=== PATIENT | female | born 1970 | race Caucasian/White ===

== ENCOUNTER 2023-06-09 10:51 | Outpatient (OUT) | payer BC, SELFPAY ==
--- NOTE | 2023-06-09 10:59 | US_ITS ---
The [address] [address] Patient Name: ROSSY BAKER MRN: [id number] date: 1970 Sex: F Assigned Patient Location: [place] Current Patient Location: Accession/Order Number: [id number] Exam Date: 06/09/2023 11:00 Report Date: 06/09/2023 11:48 At the request of: SWATHI WHITNEY Procedure: US abdomen complete EXAMINATION: US abdomen complete HISTORY: Unspecified Abdominal Pain R10.9 , bloating, left upper quadrant pain COMPARISON: No relevant comparison available. TECHNIQUE: High resolution sonographic examination of the abdomen was performed. FINDINGS: LIVER: Normal. Normal size and echotexture. No significant masses. BILIARY: Normal. Normal appearing gallbladder and biliary tree. PANCREAS: Normal. No visible mass, abnormal atrophy, or ductal dilatation. SPLEEN: Normal. Normal size and echotexture. KIDNEYS: Normal. No mass or obstruction. AORTA/VASCULAR: Normal. No aneurysm. Duplex Doppler demonstrates normal waveform and flow, 97/22 cm/s. Patent inferior vena cava. OTHER: Negative. US/US abdomen complete IMPRESSION: 1. No abnormal or suspicious findings to account for patient's symptoms. Electronically authenticated by: DAVID BARROS Date: 06/09/2023 11:48
== END 2023-06-09 10:52 | disposition home or self-care (01) ==
LOC: US 10:51
PROVIDERS: PCP Nurse Practitioner; Visit Provider Nurse Practitioner
DX: R10.9 Unspecified abdominal pain (principal)
CPT/HCPCS: 76700

== ENCOUNTER 2023-07-14 14:39 | Outpatient (OUT) | payer BC, SELFPAY ==
--- NOTE | 2023-07-14 14:42 | US_ITS ---
The [address] [address] Patient Name: ROSSY BAKER MRN: [id number] date: 1970 Sex: F Assigned Patient Location: [place] Current Patient Location: Accession/Order Number: [id number] Exam Date: 07/14/2023 14:44 Report Date: 07/14/2023 22:05 At the request of: SWATHI WHITNEY Procedure: US pelvis w/ transvaginal EXAMINATION: US pelvis w/ transvaginal HISTORY: Pelvic pain, bloating COMPARISON: No relevant comparison available. FINDINGS: The uterus is anteverted. The uterus measures 9.4 x 5.3 x 4.1 cm. Heterogeneous echotexture with no focal myometrial mass. Endometrium is poorly visualized. Multiple areas of anechoic echogenicity in the cervix likely representing nabothian cysts. The ovaries are not visualized No free fluid US/US pelvis w/ transvaginal IMPRESSION: Heterogeneous uterus, nonspecific Nonvisualization of the ovaries Electronically authenticated by: SHE SARKAR Date: 07/14/2023 22:05
== END 2023-07-14 14:40 | disposition home or self-care (01) ==
LOC: US 14:39
PROVIDERS: PCP Nurse Practitioner; Visit Provider Nurse Practitioner
DX: R10.2 Pelvic and perineal pain (principal); R14.0 Abdominal distension (gaseous)
CPT/HCPCS: 76830; 76856

== ENCOUNTER 2024-06-13 09:43 | Outpatient (OUT) | payer BC, SELFPAY ==
--- NOTE | 2024-06-13 09:53 | MM_ITS ---
Patient Name: ROSSY BAKER MR#: [id number] : 1970 Exam Date: 06/13/2024 Ordering Doctor: SWATHI WHITNEY . RADIOLOGY REPORT PROCEDURE: MM TOMOSYNTHESIS SCREENING BI COMPARISON: MG MAMM SCREEN 3D HARI CAD, 08/13/2021. MAMMO POST BIOPSY BILATERAL, 08/29/2021. INDICATIONS: Screening Calculator Name NCI Breast Cancer Risk Assessment Tool 5 Year Breast Cancer Risk 1.60% Lifetime Breast Cancer Risk 10.90% Personal Breast Cancer No Personal Ovarian Cancer No Treatments None Family Cancers Father with lung cancer at age 56. LOCATION: [facility] BREAST COMPOSITION: The breasts are heterogeneously dense,which may obscure small masses. FINDINGS: DIAGNOSTIC CATEGORY 2--BENIGN FINDING. NO CHANGE FROM COMPARISON. Scattered benign-appearing nodules are present. Scattered benign-appearing calcifications are present. Scattered benign-appearing lymph nodes are present. RIGHT BREAST: No significant suspicious finding. LEFT BREAST: No significant suspicious finding. RECOMMENDATIONS: ROUTINE MAMMOGRAM AND CLINICAL EVALUATION IN 12 MONTHS. PLEASE NOTE: A NORMAL MAMMOGRAM DOES NOT EXCLUDE THE POSSIBILITY OF BREAST CANCER. A CLINICALLY SUSPICIOUS PALPABLE LUMP SHOULD BE BIOPSIED. Dictated by: Afshin Verdin MD on 06/13/2024 at 11:03 Approved by: Afshin Verdin MD on 06/13/2024 at 11:04
== END 2024-06-13 09:44 | disposition home or self-care (01) ==
LOC: MAMMO 09:43
PROVIDERS: PCP Nurse Practitioner; Visit Provider Nurse Practitioner
DX: Z12.31 Encounter for screening mammogram for malignant neoplasm of breast (principal); Z80.1 Family history of malignant neoplasm of trachea, bronchus and lung
CPT/HCPCS: 77063; 77067

== ENCOUNTER 2024-09-28 08:59 | Outpatient (OUT) | payer BC, SELFPAY ==
[2024-09-28 10:05] LABS: Free T3 2.28 pg/mL (2.18-3.98); Thyroid Stimulating Hormone 0.011 uIU/mL (0.358-3.740)
[2024-09-28 10:38] LABS: Free T4 1.05 ng/dL (0.76-1.46)
== END 2024-09-28 09:00 | disposition home or self-care (01) ==
LOC: LAB 09:02
PROVIDERS: PCP Nurse Practitioner; Visit Provider Nurse Practitioner
DX: E03.9 Hypothyroidism, unspecified (principal); R63.4 Abnormal weight loss
CPT/HCPCS: 36415; 84439; 84443; 84481

== ENCOUNTER 2025-01-02 09:33 | Outpatient (OUT) | payer BC, SELFPAY ==
--- NOTE | 2025-01-02 09:35 | US_ITS ---
The [address] [address] Patient Name: ROSSY BAKER MRN: [id number] date: 1970 Sex: F Assigned Patient Location: [place] Current Patient Location: [place] Accession/Order Number: [id number] Exam Date: 01/02/2025 09:40 Report Date: 01/02/2025 12:56 At the request of: SWATHI WHITNEY Procedure: US right upper quadrant EXAMINATION: US right upper quadrant, US abdomen limited HISTORY: Generalized abdominal Pain , bloating, left upper quadrant pain COMPARISON: No relevant comparison available. TECHNIQUE: Transabdominal evaluation of the right upper quadrant. FINDINGS: LIVER: Normal size and echotexture. Color Doppler demonstrates patent hepatic veins. PORTAL VEIN: Duplex Doppler demonstrates normal hepatopetal flow pattern with flow velocity averaging 28 cm/s. GALLBLADDER: Contains numerous mobile 5 mm stones. No wall thickening or free fluid. Negative sonographic Erickson's sign. BILIARY: No abnormal dilation or stones. Common bile duct diameter is within normal limits. PANCREAS: Limited evaluation. No visible mass, abnormal atrophy, or duct dilation. KIDNEYS: No hydronephrosis. No visible mass or stones. SPLEEN: Limited evaluation, but no appreciable abnormality or enlargement. US/US right upper quadrant IMPRESSION: 1. Cholelithiasis. Otherwise unremarkable right upper quadrant. 2. Slightly limited evaluation, but grossly normal size and appearance of the spleen. Electronically authenticated by: DAVID BARROS Date: 01/02/2025 12:56
--- NOTE | 2025-01-02 09:38 | US_ITS ---
The [address] [address] Patient Name: ROSSY BAKER MRN: [id number] date: 1970 Sex: F Assigned Patient Location: [place] Current Patient Location: [place] Accession/Order Number: [id number] Exam Date: 01/02/2025 09:40 Report Date: 01/02/2025 12:56 At the request of: SWATHI WHITNEY Procedure: US abdomen limited EXAMINATION: US right upper quadrant, US abdomen limited HISTORY: Generalized abdominal Pain , bloating, left upper quadrant pain COMPARISON: No relevant comparison available. TECHNIQUE: Transabdominal evaluation of the right upper quadrant. FINDINGS: LIVER: Normal size and echotexture. Color Doppler demonstrates patent hepatic veins. PORTAL VEIN: Duplex Doppler demonstrates normal hepatopetal flow pattern with flow velocity averaging 28 cm/s. GALLBLADDER: Contains numerous mobile 5 mm stones. No wall thickening or free fluid. Negative sonographic Erickson's sign. BILIARY: No abnormal dilation or stones. Common bile duct diameter is within normal limits. PANCREAS: Limited evaluation. No visible mass, abnormal atrophy, or duct dilation. KIDNEYS: No hydronephrosis. No visible mass or stones. SPLEEN: Limited evaluation, but no appreciable abnormality or enlargement. US/US abdomen limited IMPRESSION: 1. Cholelithiasis. Otherwise unremarkable right upper quadrant. 2. Slightly limited evaluation, but grossly normal size and appearance of the spleen. Electronically authenticated by: DAVID BARROS Date: 01/02/2025 12:56
== END 2025-01-02 09:34 | disposition home or self-care (01) ==
LOC: US 09:33
PROVIDERS: PCP Nurse Practitioner; Visit Provider Nurse Practitioner
DX: R10.84 Generalized abdominal pain (principal); K80.20 Calculus of gallbladder without cholecystitis without obstruction
CPT/HCPCS: 76705

== ENCOUNTER 2025-03-22 06:42 | Outpatient (OUT) | payer BC, SELFPAY ==
--- NOTE | 2025-03-22 06:45 | NM_ITS ---
The [address] [address] Patient Name: ROSSY BAKER MRN: [id number] date: 1970 Sex: F Assigned Patient Location: [place] Current Patient Location: [place] Accession/Order Number: [id number] Exam Date: 03/22/2025 13:03 Report Date: 03/22/2025 13:04 At the request of: SWATHI WHITNEY Procedure: KS hepatobiliary w pharm HIDA SCAN WITH CCK CLINICAL HISTORY: ABDOMINAL PAIN, GALL STONES, NAUSEA COMPARISON: None. TECHNIQUE:Following the intravenous administration of 4.9 mCi of technetium 99m labeled Mebrofenin, anterior imaging of the abdomen was performed out to 60 minutes.The patient was subsequently given 8 ounces of ensure and gallbladder ejection fraction was calculated. FINDINGS: There is uniform distribution of radionuclide within the liver. Normal gallbladder activity is seen within the first 60 minutes. The gallbladder ejection fraction is 82%. Normal is greater than 40%. KS/KS hepatobiliary w pharm IMPRESSION: Normal HIDA scan. Impression dictated by: Andres Garcia Jr., D.O.03/22/2025 1:04 PM Dictation Location: [place] [address] Electronically authenticated by: [id number] Y Date: 03/22/2025 13:04
== END 2025-03-22 06:43 | disposition home or self-care (01) ==
LOC: NM 06:43
PROVIDERS: PCP Nurse Practitioner; Visit Provider Nurse Practitioner
DX: K80.20 Calculus of gallbladder without cholecystitis without obstruction (principal); R11.0 Nausea; R10.84 Generalized abdominal pain
CPT/HCPCS: 78227; A9537

== ENCOUNTER 2025-03-27 09:53 | Outpatient (OUT) | payer BC, SELFPAY ==
[2025-03-28 04:12] LABS: FSH 62.4 mIU/mL (.)
== END 2025-03-27 09:54 | disposition home or self-care (01) ==
LOC: LAB 09:54
PROVIDERS: PCP Nurse Practitioner; Visit Provider Obstetrics & Gynecology
DX: R10.2 Pelvic and perineal pain (principal); N93.9 Abnormal uterine and vaginal bleeding, unspecified; N95.0 Postmenopausal bleeding; Z98.890 Other specified postprocedural states; R14.0 Abdominal distension (gaseous)
CPT/HCPCS: 36415; 83001

== ENCOUNTER 2025-04-19 10:50 | Outpatient (OUT) | payer BC, SELFPAY ==
--- OUTSIDE RECORDS SUMMARY | 2025-04-19 07:59 | XMS_ITS ---
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 Name Role Phone KORTNEY SHERMAN Attending Unavailable NATAPRKORTNEY VELARDE Attending Unavailable John, INBOUND SALES REPRESENTATIVE Jazmyn L Attending Unavailable John, INBOUND SALES REPRESENTATIVE Jazmyn L Attending Unavailable John, INBOUND SALES REPRESENTATIVE Jazmyn L Attending Unavailable John, INBOUND SALES REPRESENTATIVE Jazmyn L Attending Unavailable John, INBOUND SALES REPRESENTATIVE Jazmyn L Attending Unavailable John, INBOUND SALES REPRESENTATIVE Jazmyn L Admitting Unavailable John, INBOUND SALES REPRESENTATIVE Jazmyn L Admitting Unavailable John, INBOUND SALES REPRESENTATIVE Jazmyn L Attending Unavailable John, INBOUND SALES REPRESENTATIVE Jazmyn L Attending Unavailable John, INBOUND SALES REPRESENTATIVE Jazmyn L Attending Unavailable PROBLEMS No Problem Records Found PROCEDURES No Procedure Records Found RESULTS FAMILY MEDICINE OFFICE/CLINI C NOTE Observed: 02/16/2025 11:05 AM Status: F Source: [facility] Family Medicine Office/Clini c Note HPI Staff Susan is a 54 year old female presenting to discuss ABD pain Abdominal Pain: JOVANI 12/06/24 U/s gallbladder and pancreas ordered. Location: Upper Bilateral Abdomen wrapping around to back Quality/Character: Continues to have intermittent nausea Severity: moderate Pt would like to discuss her gallbladder. Intermittent pain/nausea. Pt states she feels good if she doesn't eat. pt states when taking the pantoprazole would have blurry vision and just not feel good. History of Present Illness pt presents today with continued upper abdominal pain and epigastric pain Review of Systems PHQ Score Initial Depression Screen Score: 0 SCORE Physical Exam Vitals & Measurements HR: 78(Peripheral) RR: 18 BP: 138/82 SpO2: 98% HT: 65 in HT: 165.0 cm WT: 171.74 lb WT: 77.9 kg BMI: 28.61 General: alert, no acute distress ENMT: oral mucosa moist, no pharyngeal erythema or exudate Cardiovascular: regular rate and rhythm, normal peripheral perfusion Respiratory: Lungs CTA, respirations non labored Extremities: no deformity, no trauma Neurological: oriented x 4, LOC appropriate for age, CN II-XII intact, motor strength equal & normal bilaterally, speech normal Assessment/Plan 1. Abdominal pain (R10.9: Unspecified abdominal pain) pt continues having abdominal pain. mostly after she eats. the pain wakes her up at night. she was taking pantoprazole but it made her eyes blurry so she stopped that. she thinks all of this was caused by taking semaglutide. she has since stopped taking it, but feels the pain is getting worse. will order HIDA scan to check for gallbladder dysfunction. will then consider referral to surgery or GI depending on those results. pt states she was told she has a hiatal hernia and maybe it's getting worse. HIDA scan order sent to [facility] per pt request 2. Gall stones (K80.20: Calculus of gallbladder without cholecystitis without obstruction) pt had u/s of gallbladder and pancreas. it did show some gall stones. 3. BMI 28.0-28.9,adult (Z68.28: Body mass index [BMI] 28.0-28.9, adult) BMI education given 4. Non-smoker (Z78.9: Other specified health status) continue not smoking Follow-up No qualifying data available Problem List/Past Medical History Ongoing Abdominal pain Adult BMI 27.0-27.9 kg/sq m Allergic rhinitis Asthma BMI 26.0-26.9,adult BMI 29.0-29.9,adult Breast cancer screening by mammogram Cough Dysuria Encounter for weight management Gall stones GERD (gastroesophageal reflux disease) Hypothyroidism Nonsmoker Overweight (BMI 25.0-29.9) Shortness of breath Urinary tract infection Vaginal yeast infection Well woman exam Wheezing Historical No qualifying data Procedure/Surgical History Ablation, Colonoscopy, EGD (esophagogastroduodenoscopy) and closure of duodenal fistula, Surgery. Medications Albuterol (Eqv-Ventolin HFA) 90 mcg/inh inhalation aerosol, 180 mcg= 2 puff(s), Inhalation, q4hr, 3 refills budesonide 90 mcg/inh inhalation powder, 1 inh, Inhalation, BID, 11 refills cetirizine 10 mg Tab, 10 mg= 1 tab(s), Oral, Daily, 3 refills cyclobenzaprine 10 mg Tab, See Instructions levothyroxine 50 mcg (0.05 mg) Tab, See Instructions liothyronine 5 mcg Tab, 5 mcg= 1 tab(s), Oral, Daily, 3 refills ondansetron 4 mg Dis Tab, 4 mg= 1 tab(s), Oral, q6hr, PRN, 1 refills Pantoprazole [address] Tab, 40 mg= 1 tab(s), Oral, Daily, 1 refills Allergies No Known Medication Allergies Social History Alcohol Never., 10/18/2024 Substance Abuse Never., 10/18/2024 Tobacco Never (less than 100 in lifetime) Tobacco Use:. Never Smokeless Tobacco Use:. Household tobacco concerns: No. Yes, 12/06/2024 Family History Diabetes mellitus type 1: Mother. Immunizations Vaccine Date Status Comments influenza virus vaccine, inactivated 09/14/2024 Recorded zoster vaccine, inactivated 07/27/2024 Recorded zoster vaccine, inactivated 02/23/2024 Recorded diphtheria/pertussis, acel/tetanus adult 02/05/2024 Recorded influenza virus vaccine, inactivated 08/28/2023 Recorded influenza virus vaccine, inactivated 09/26/2022 Recorded SARS-CoV-2 (COVID-19) [id number] 09/26/2022 Recorded influenza virus vaccine, inactivated 09/15/2021 Recorded SARS-CoV-2 (COVID-19) mRNA BNT-162b2 vax 09/15/2021 Recorded 2023-04-16: [id number] SARS-CoV-2 (COVID-19) mRNA BNT-162b2 vax 03/04/2021 Recorded SARS-CoV-2 (COVID-19) mRNA BNT-162b2 vax 02/10/2021 Recorded influenza virus vaccine, inactivated 09/06/2020 Recorded influenza virus vaccine, inactivated 09/20/2019 Recorded influenza virus vaccine, inactivated 08/13/2018 Recorded influenza virus vaccine, inactivated 10/13/2017 Recorded influenza virus vaccine, inactivated 09/20/2017 Recorded diphtheria/pertussis, acel/tetanus adult 09/08/2016 Recorded influenza virus vaccine, inactivated 09/08/2016 Recorded influenza virus vaccine, inactivated 10/08/2015 Recorded Result Comment: Electronical ly Signed By: Jazmyn De La Torre\.br\Date and Time Signed: 02/16/25 12:43 EDT REMINDERS Observed: 12/08/2024 9:09 AM Status: C Source: [facility] Reminders From: Jazmyn De La Torre To: [facility] - Clinical; Sent: 12/08/2024 09:09:52 EST Show up: 12/08/2024 09:10:00 EST Subject: Ambulatory Reminder Due Date/Time: 12/09/2024 09:09:00 EST Labs look good.. kidney, liver and pancreas labs all normal Results: Date Result Name Ind Value Ref Range 12/06/2024 15:06 WBC 4.7 E9/L (4.0 - 11.0) 12/06/2024 15:06 RBC ((L)) 3.9 E12/L (4.3 - 5.9) 12/06/2024 15:06 HGB 14.0 gm/dL (12.0 - 16.0) 12/06/2024 15:06 Hct 39.8 % (34.0 - 46.0) 12/06/2024 15:06 MCV ((H)) 103.0 fL (80.0 - 100.0) 12/06/2024 15:06 MCH ((H)) 36.3 pg (27.0 - 34.0) 12/06/2024 15:06 MCHC 35.2 gm/dL (31.4 - 36.0) 12/06/2024 15:06 RDW ((H)) 14.5 % (10.9 - 14.2) 12/06/2024 15:06 Platelet 251.0 E9/L (150.0 - 500.0) 12/06/2024 15:06 MPV 8.5 fL (6.4 - 10.8) 12/06/2024 15:06 Neutro Auto 46.4 % (36.0 - 75.0) 12/06/2024 15:06 Lymph Auto 37.2 % (14.0 - 50.0) 12/06/2024 15:06 [place] Auto 6.6 % (4.0 - 14.0) 12/06/2024 15:06 Eos Auto ((H)) 9.0 % (0.0 - 8.0) 12/06/2024 15:06 Basophil Auto 0.8 % (0.0 - 2.0) 12/06/2024 15:06 Neutro Absolute 2.2 E9/L (2.0 - 7.5) 12/06/2024 15:06 Lymph Absolute 1.7 E9/L (1.0 - 4.0) 12/06/2024 15:06 [place] Absolute 0.3 E9/L (0.2 - 1.0) 12/06/2024 15:06 Eos Absolute 0.4 E9/L (0.0 - 0.5) 12/06/2024 15:06 Basophil Absolute 0.0 E9/L (0.0 - 0.2) 12/06/2024 15:06 Glucose Lvl 108 mg/dL (55 - 199) 12/06/2024 15:06 BUN 11 mg/dL (5 - 21) 12/06/2024 15:06 Creatinine 0.7 mg/dL (0.5 - 1.3) 12/06/2024 15:06 eGFR 101 mL/min/1.73 m2 (>=59 - ) 12/06/2024 15:06 BUN/Creat Ratio 16 (10 - 20) 12/06/2024 15:06 Sodium Lvl 139 mmol/L (135 - 145) 12/06/2024 15:06 Potassium Lvl 3.8 mmol/L (3.5 - 5.3) 12/06/2024 15:06 Chloride 106 mmol/L (101 - 111) 12/06/2024 15:06 CO2 24 mmol/L (21 - 31) 12/06/2024 15:06 AGAP 13 mEq/L (6 - 16) 12/06/2024 15:06 Calcium Lvl 9.1 mg/dL (8.9 - 11.1) 12/06/2024 15:06 Alk Phos 46 Int._Unit/L (21 - 98) 12/06/2024 15:06 ALT 12 Int._Unit/L (6 - 46) 12/06/2024 15:06 AST 20 Int._Unit/L (5 - 43) 12/06/2024 15:06 Total Protein 6.8 gm/dL (6.0 - 7.8) 12/06/2024 15:06 Albumin Lvl 4.2 gm/dL (3.3 - 5.0) 12/06/2024 15:06 Globulin 2.6 gm/dL (1.4 - 4.0) 12/06/2024 15:06 A/G Ratio 1.6 (1.1 - 2.2) 12/06/2024 15:06 Bili Total 0.8 mg/dL (0.0 - 1.1) 12/06/2024 15:06 Amylase Lvl 84 unit/L (25 - 157) 12/06/2024 15:06 Lipase Lvl 27 unit/L (13 - 58) 12/06/2024 15:06 TSH 0.75 mcIU/mL (0.34 - 5.60) From: Halima Ruiz M.A. ([facility] - Clinical) To: Jazmyn De La Torre; Sent: 12/11/2024 10:29:12 EST Show up: 12/11/2024 10:28:00 EST Subject: RE: Ambulatory Reminder patient notified AMBULATORY VISIT SUMMARY Observed: 12/06 3:29 PM Status: F Source: [facility] Ambulatory Visit Summary SUSAN BAKER :1970 Visit Date:12/06/2024 Ambulatory Visit Instructions Your Diagnosis UTI symptoms Abdominal pain Hypothyroidism BMI 26.0-26.9,adult Overweight (BMI 25.0-29.9) Nonsmoker Your Care Team Attending Physician - Jazmyn De La Torre Primary Care Physician - Jazmyn De La Torre This Is Your Medications List albuterol (Albuterol (Eqv-Ventolin HFA) 90 mcg/inh inhalation aerosol) budesonide (budesonide 90 mcg/inh inhalation powder) cetirizine (cetirizine 10 mg Tab) cyclobenzaprine (cyclobenzaprine 10 mg Tab) levothyroxine (levothyroxine 50 mcg (0.05 mg) Tab) liothyronine (liothyronine 5 mcg Tab) ondansetron (ondansetron 4 mg Dis Tab) Procedures Performed Ablation, Colonoscopy, EGD (esophagogastroduodenoscopy) and closure of duodenal fistula, Surgery. Discharge Vitals Heart Rate (Peripheral) 94 Respiratory Rate 18 Blood Pressure 132/84 Height 165 cm Height 65 in Weight 73.1 kg Weight 161.158 lb BMI 26.85 Medications What How Much When Instructions Unchanged albuterol (Albuterol (Eqv-Ventolin HFA) 90 mcg/ inh inhalation aerosol) 2 Puffs Inhalation Every 4 hours Unchanged budesonide (budesonide 90 mcg/ inh inhalation powder) 1 Inhalation Inhalation 2 times a day Unchanged cetirizine (cetirizine 10 mg Tab) 1 Tablets By Mouth Every day Unchanged cyclobenzaprine (cyclobenzaprine 10 mg Tab) See instructions TAKE 1 TABLET BY MOUTH 3 TIMES A DAY NEEDED FOR SPASM Unchanged levothyroxine (levothyroxine 50 mcg (0.05 mg) Tab) 1 Tablets By Mouth Every day Unchanged liothyronine (liothyronine 5 mcg Tab) 1 Tablets By Mouth Every day Duration: 90 Days Unchanged ondansetron (ondansetron 4 mg Dis Tab) 1 Tablets By Mouth Every 6 hours as needed for Nausea/Vomiting Allergies No Known Medication Allergies Problems Ongoing - Any problem that you are currently receiving treatment for. Abdominal pain Adult BMI 27.0-27.9 kg/sq m Allergic rhinitis Asthma BMI 26.0-26.9,adult BMI 29.0-29.9,adult Breast cancer screening by mammogram Cough Dysuria Encounter for weight management GERD (gastroesophageal reflux disease) Hypothyroidism Nonsmoker Overweight (BMI 25.0-29.9) Shortness of breath Urinary tract infection Vaginal yeast infection Well woman exam Wheezing Patient Survey You may receive a survey via text or e-mail asking about your office visit. Please share your experience with us by completing your survey. We appreciate your feedback and thank you for choosing us for your care. FAMILY MEDICINE OFFICE/CLINI C NOTE Observed: 12/06/2024 3:09 PM Status: F Source: [facility] Family Medicine Office/Clini c Note Chief Complaint Possible UTI HPI Staff Pt presents today for possible UTI. Increased frequency for a while. Lower abdominal pain since taking semaglutide. Now radiating around Rt flank. Denies pain and burning with urination. Increased fatigue. History of Present Illness pt c/o abdominal pain and urinary frequency Review of Systems PHQ Score Initial Depression Screen Score: 0 SCORE Physical Exam Vitals & Measurements HR: 94(Peripheral) RR: 18 BP: 132/84 SpO2: 97% HT: 65 in HT: 165 cm WT: 73.1 kg WT: 161.158 lb BMI: 26.85 General: alert, no acute distress ENMT: oral mucosa moist, no pharyngeal erythema or exudate Cardiovascular: regular rate and rhythm, normal peripheral perfusion Respiratory: Lungs CTA, respirations non labored Extremities: no deformity, no trauma Neurological: oriented x 4, LOC appropriate for age, CN II-XII intact, motor strength equal & normal bilaterally, speech normal Assessment/Plan 1. UTI symptoms (R39.9: Unspecified symptoms and signs involving the genitourinary system) urinary frequency . u/a negative in office today. Ordered: Amylase Level CBC w/ Auto Diff Comprehensive Metabolic Panel Lipase Level Thyroid Stimulating Hormone Urnls Dip Stick Auto w/o Microscopy POC 68804 2. Abdominal pain (R10.9: Unspecified abdominal pain) pt c/o continued abdominal pain. she thought it was from the ozempic she was taking, has been off of it for 3-4 weeks. and is still having abdominal pain. labs ordered. u/s of gallbladder and pancreas also ordered. RTC 3-4 weeks for follow up. if all testing is normal may consider pelvic u/s to look at uterus for possible fibroid Ordered: Amylase Level CBC w/ Auto Diff Comprehensive Metabolic Panel Lipase Level Thyroid Stimulating Hormone 3. Hypothyroidism (E03.9: Hypothyroidism, unspecified) TSH drawn in office today Ordered: Amylase Level CBC w/ Auto Diff Comprehensive Metabolic Panel Lipase Level Thyroid Stimulating Hormone 4. BMI 26.0-26.9,adult (Z68.26: Body mass index [BMI] 26.0-26.9, adult) BMI education given Ordered: Amylase Level CBC w/ Auto Diff Comprehensive Metabolic Panel Lipase Level Thyroid Stimulating Hormone 5. Overweight (BMI 25.0-29.9) (E66.3: Overweight) see above Ordered: Amylase Level CBC w/ Auto Diff Comprehensive Metabolic Panel Lipase Level Thyroid Stimulating Hormone 6. Nonsmoker (Z78.9: Other specified health status) continue not smoking Ordered: Amylase Level CBC w/ Auto Diff Comprehensive Metabolic Panel Lipase Level Thyroid Stimulating Hormone Orders: fluconazole, 150 mg = 1 tab(s), Oral, Once, take 1 tab on day 1 and one tab on day 4, # 2 tab(s), Refills(s) 1, Pharmacy: [facility]/pharmacy #[id number], 165, cm, 03/30/24 14:41:00 EDT, Height/Length Dosing, 75, kg, 03/30/24 14:41:00 EDT, Weight Dosing nystatin, 500,000 unit(s) = 5 mL, Oral, q6hr, retain in mouth as long as possible before swallowing, # 200 mL, Refills(s) 0, Pharmacy: [facility]/pharmacy #[id number], 165, cm, 08/08/24 10:51:00 EDT, Height/Length Dosing, 70.4, kg, 08/08/24 10:51:00 EDT, Weight Dosing Follow-up No qualifying data available Problem List/Past Medical History Ongoing Abdominal pain Adult BMI 27.0-27.9 kg/sq m Allergic rhinitis Asthma BMI 26.0-26.9,adult BMI 29.0-29.9,adult Breast cancer screening by mammogram Cough Dysuria Encounter for weight management GERD (gastroesophageal reflux disease) Hypothyroidism Nonsmoker Overweight (BMI 25.0-29.9) Shortness of breath Urinary tract infection Vaginal yeast infection Well woman exam Wheezing Historical No qualifying data Procedure/Surgical History Ablation, Colonoscopy, EGD (esophagogastroduodenoscopy) and closure of duodenal fistula, Surgery. Medications Albuterol (Eqv-Ventolin HFA) 90 mcg/inh inhalation aerosol, 180 mcg= 2 puff(s), Inhalation, q4hr, 3 refills budesonide 90 mcg/inh inhalation powder, 1 inh, Inhalation, BID, 11 refills cetirizine 10 mg Tab, 10 mg= 1 tab(s), Oral, Daily, 3 refills cyclobenzaprine 10 mg Tab, See Instructions levothyroxine 50 mcg (0.05 mg) Tab, 50 mcg= 1 tab(s), Oral, Daily liothyronine 5 mcg Tab, 5 mcg= 1 tab(s), Oral, Daily, 3 refills ondansetron 4 mg Dis Tab, 4 mg= 1 tab(s), Oral, q6hr, PRN, 1 refills Allergies No Known Medication Allergies Social History Alcohol Never., 10/18/2024 Substance Abuse Never., 10/18/2024 Tobacco Never (less than 100 in lifetime) Tobacco Use:. Never Smokeless Tobacco Use:. Household tobacco concerns: No. Yes, 12/06/2024 Family History Diabetes mellitus type 1: Mother. Immunizations Vaccine Date Status Comments influenza virus vaccine, inactivated 09/14/2024 Recorded zoster vaccine, inactivated 07/27/2024 Recorded zoster vaccine, inactivated 02/23/2024 Recorded diphtheria/pertussis, acel/tetanus adult 02/05/2024 Recorded influenza virus vaccine, inactivated 08/28/2023 Recorded influenza virus vaccine, inactivated 09/26/2022 Recorded SARS-CoV-2 (COVID-19) [id number] 09/26/2022 Recorded influenza virus vaccine, inactivated 09/15/2021 Recorded SARS-CoV-2 (COVID-19) mRNA BNT-162b2 vax 09/15/2021 Recorded 2023-04-16: TPV50 SARS-CoV-2 (COVID-19) mRNA BNT-162b2 vax 03/04/2021 Recorded SARS-CoV-2 (COVID-19) mRNA BNT-162b2 vax 02/10/2021 Recorded influenza virus vaccine, inactivated 09/06/2020 Recorded influenza virus vaccine, inactivated 09/20/2019 Recorded influenza virus vaccine, inactivated 08/13/2018 Recorded influenza virus vaccine, inactivated 10/13/2017 Recorded influenza virus vaccine, inactivated 09/20/2017 Recorded diphtheria/pertussis, acel/tetanus adult 09/08/2016 Recorded influenza virus vaccine, inactivated 09/08/2016 Recorded influenza virus vaccine, inactivated 10/08/2015 Recorded Lab Results Ambulatory Point of Care Results Bilirubin Urine Dipstick: Negative (12/06/24 14:40:00) Blood Urine Dipstick: Negative (12/06/24 14:40:00) Glucose Urine Dipstick: Negative (12/06/24 14:40:00) Ketones Urine Dipstick: Negative (12/06/24 14:40:00) Leukocytes Urine Dipstick: Negative (12/06/24 14:40:00) Nitrite Urine Dipstick: Negative (12/06/24 14:40:00) Protein Urine Dipstick: Negative (12/06/24 14:40:00) Specific [employer] Urine Dipstick: 1.010 (12/06/24 14:40:00) Urine Appearance Urine Dipstick: Clear (12/06/24 14:40:00) Urine Color Urine Dipstick: Light yellow (12/06/24 14:40:00) Urobilinogen Urine Dipstick: Normal 0.2-1 EU/dl (12/06/24 14:40:00) pH Urine Dipstick: 5.5 (12/06/24 14:40:00) Result Comment: Electronical ly Signed By: Jazmyn De La Torre.aida\Date and Time Signed: 12/06/24 15:09 EST CMP Collected: 12/06/2024 3:06 PM Status: F Source: [facility] TYPE CODE TESTS RESULT OUT OF RANGE REFERENCE UNITS LAB 2345-7([facility]) GLUCOSE:MCNC:P T:SER/PLAS:QN: 108 Normal 55-199 mg/dL LAB 3094-0([facility]) UREA NITROGEN:MCNC: PT:SER/PLAS:QN : 11 Normal 5-21 mg/dL LAB 2160-0([facility]) CREATININE:MCN C:PT:SER/PLAS: QN: 0.7 Normal 0.5-1.3 mg/dL LAB 55691-1([facility]) CALCIUM:MCNC:P T:SER/PLAS:QN: 9.1 Normal 8.9-11.1 mg/dL LAB 2951-2([facility]) SODIUM:SCNC:PT :SER/PLAS:QN: 139 Normal 135-145 mmol/L LAB 2823-3([facility]) POTASSIUM:SCNC :PT:SER/PLAS:Q N: 3.8 Normal 3.5-5.3 mmol/L LAB 2075-0([facility]) CHLORIDE:SCNC: PT:SER/PLAS:QN : 106 Normal 101-111 mmol/L LAB 2028-9([facility]) CARBON DIOXIDE:SCNC:P T:SER/PLAS:QN: 24 Normal 21-31 mmol/L LAB 6768-6([facility]) ALKALINE PHOSPHATASE:CC NC:PT:SER/PLAS :QN: 46 Normal 21-98 Int._Unit /L LAB 1975-2([facility]) BILIRUBIN:MCNC :PT:SER/PLAS:Q N: 0.8 Normal 0.0-1.1 mg/dL LAB 1751-7([facility]) ALBUMIN:MCNC:P T:SER/PLAS:QN: 4.2 Normal 3.3-5.0 gm/dL LAB 2885-2([facility]) PROTEIN:MCNC:P T:SER/PLAS:QN: 6.8 Normal 6.0-7.8 gm/dL LAB 1744-2([facility]) ALANINE AMINOTRANSFERA SE:CCNC:PT:SER /PLAS:QN:NO ADDITION OF P-5'-P 12 Normal 6-46 Int._Unit /L LAB 1920-8([facility]) ASPARTATE AMINOTRANSFERA SE:CCNC:PT:SER /PLAS:QN: 20 Normal 5-43 Int._Unit /L LAB 3097-3([facility]) UREA NITROGEN/CREAT ININE:MRTO:PT: SER/PLAS:QN: 16 Normal 10-20 No Units LAB 84773-9([facility]) ANION GAP:SCNC:PT:SE R/PLAS:QN: 13 Normal 6-16 mEq/L LAB 06133-3([facility]) GLOBULIN:MCNC: PT:SER:QN:CALC ULATED 2.6 Normal 1.4-4.0 gm/dL LAB 30462-4([facility]) ALBUMIN/GLOBUL IN:MCRTO:PT:SE R:QN: 1.6 Normal 1.1-2.2 Performed By: #### [id number] # ### [facility] [address] [place] [address] TSH Collected: 5 3:06 PM Status: F Source: [facility] TYPE CODE TESTS RESULT OUT OF RANGE REFERENCE UNITS LAB 3016-3([facility]) THYROTROPIN: ACNC:PT:SER/ PLAS:QN: 0.75 Normal 0.34-5.60 mcIU/mL Performed By: #### [id number] # ### [facility] [address] [place] [address] CBC W/ AUTO DIFF Collected: 12/06/2024 3:06 PM Statu s: F Source: [facility] TYPE CODE TESTS RESULT OUT OF RANGE REFERENCE UNITS LAB 08062-8([facility]) LEUKOCYTES^^YULY ECTED FOR NUCLEATED ERYTHROCYTES:NCN C:PT:BLD:QN:AUTO MATED COUNT 4.7 Normal 4.0-11.0 E9/L LAB 789-8([facility]) ERYTHROCYTES:NCN C:PT:BLD:QN:AUTO MATED COUNT 3.9 Low 4.3-5.9 E12/L LAB 718-7([facility]) HEMOGLOBIN:MCNC: PT:BLD:QN: 14.0 Normal 12.0-16.0 gm/dL LAB 4544-3([facility]) HEMATOCRIT:VFR:P T:BLD:QN:AUTOMAT ED COUNT 39.8 Normal 34.0-46.0 % LAB 788-0([facility]) ERYTHROCYTE DISTRIBUTION WIDTH:RATIO:PT:R BC:QN:AUTOMATED COUNT 14.5 High 10.9-14.2 % LAB 785-6([facility]) ERYTHROCYTE MEAN CORPUSCULAR HEMOGLOBIN:ENTMA SS:PT:RBC:QN:AUT OMATED COUNT 36.3 High 27.0-34.0 pg LAB 786-4([facility]) ERYTHROCYTE MEAN CORPUSCULAR HEMOGLOBIN CONCENTRATION:MC NC:PT:RBC:QN:AUT OMATED COUNT 35.2 Normal 31.4-36.0 gm/dL LAB 787-2([facility]) ERYTHROCYTE MEAN CORPUSCULAR VOLUME:ENTVOL:PT :RBC:QN:AUTOMATE D COUNT 103.0 High 80.0-100.0 fL LAB 82486-7([facility]) PLATELET MEAN VOLUME:ENTVOL:PT :BLD:QN:AUTOMATE D COUNT 8.5 Normal 6.4-10.8 fL LAB 85122248([facility]) Platelet 251.0 Normal 150.0-500.0 E9/ L LAB 10588-3([facility]) NEUTROPHILS/100 LEUKOCYTES:NFR:P T:BLD:QN: 46.4 Normal 36.0-75.0 % LAB 731-0([facility]) LYMPHOCYTES:NCNC :PT:BLD:QN:AUTOM ATED COUNT 37.2 Normal 14.0-50.0 % LAB 742-7([facility]) MONOCYTES:NCNC:P T:BLD:QN:AUTOMAT ED COUNT 0.3 Normal 0.2-1.0 E9/L LAB 713-8(INC) EOSINOPHILS/100 LEUKOCYTES:NFR:P T:BLD:QN:AUTOMAT ED COUNT 9.0 High 0.0-8.0 % LAB 704-7([facility]) BASOPHILS:NCNC:P T:BLD:QN:AUTOMAT ED COUNT 0.8 Normal 0.0-2.0 % LAB 751-8(INC) NEUTROPHILS:NCNC :PT:BLD:QN:AUTOM ATED COUNT 2.2 Normal 2.0-7.5 E9/L LAB 84791-8([facility]) LYMPHOCYTES:NCNC :PT:BLD:QN: 1.7 Normal 1.0-4.0 E9/L LAB 42656-8([facility]) EOSINOPHILS:NCNC :PT:BLD:QN: 0.4 Normal 0.0-0.5 E9/L LAB 55062-8([facility]) BASOPHILS/LEUKOC YTES:NFR.DF:PT:B LD:QN:AUTOMATED COUNT 0.0 Normal 0.0-0.2 E9/L Performed By: #### [id number] # ### [facility] [address] [place] [address] EGFR Collected: 3:06 PM Status: F Source: [facility] TYPE CODE TESTS RESULT OUT OF RANGE REFERENCE UNITS LAB 61269613([facility]) eGFR 101 Normal >=59 mL/min/1 .7 3 m2 Performed By: #### [id number] #### [facility] [address] [place] [address] AMYLASE Collected: 12/06/2024 3:06 PM Status: F Source: [facility] TYPE CODE TESTS RESULT OUT OF RANGE REFERENCE UNITS LAB 1798-8([facility]) AMYLASE:CCNC: PT:SER/PLAS:Q N: 84 Normal 25-157 unit/L Performed By: #### [id number] # ### [facility] [address] [place] [address] LIPASE LEVEL Collected: 12/06/2024 3:06 PM Status: F Source: [facility] TYPE CODE TESTS RESULT OUT OF RANGE REFERENCE UNITS LAB 3040-3(LOINC) TRIACYLGLYCEROL LIPASE:CCNC:PT:SER/ PLAS:QN: 27 Normal 13-58 unit/L Performed By: #### [id number] # ### [facility] [address] [place] [address] REMINDERS Observed: 10/23/2024 9:31 AM Status: F Source: [facility] Reminders From: Jazmyn De La Torre To: [facility] - Clinical; Sent: 10/23/2024 09:31:39 EST Show up: 10/23/2024 09:32:00 EST Subject: Ambulatory Reminder Due Date/Time: 10/24/2024 09:31:00 EST urine culture negative Results: Date Result Type Ind Result Name 10/18/2024 16:14 EST [facility] NEG Urine Culture REMINDERS Observed: 10/23/2024 9:31 AM Status: C Source: [facility] Reminders From: Jazmyn De La Torre To: [facility] - Clinical; Sent: 10/23/2024 09:31:39 EST Show up: 10/23/2024 09:32:00 EST Subject: Ambulatory Reminder Due Date/Time: 10/24/2024 09:31:00 EST urine culture negative Results: Date Result Type Ind Result Name 10/18/2024 16:14 EST [facility]BO NEG Urine Culture Susan advised of results REMINDERS Observed: 10/20/2024 2:26 PM Status: C Source: [facility] Reminders From: Jazmyn De La Torre To: [facility] - Clinical; Sent: 10/20/2024 14:26:39 EST Show up: 10/20/2024 14:27:00 EST Subject: Ambulatory Reminder Due Date/Time: 10/21/2024 14:26:00 EST urine culture was negative. symptoms are not caused by UTI Results: Date Result Type Ind Result Name 10/18/2024 MBO NEG Urine Culture Pt has been notified. FAMILY MEDICINE OFFICE/CLINI C NOTE Observed: 10/18/2024 5:03 PM Status: F Source: [facility] Family Medicine Office/Clini c Note HPI Staff Susan is a 54 year old female presenting with pain in back, dysuria Onset: started a week ago Symptoms: dysuria, abdominal pressure all the time OTC used: nothing Last UTI: at least a year ago Hx of kidney stones: no UA in office documented in chart Started on left side radiated to the right side lower pelvic pain for a out a month History of Present Illness pt presents today for uti symptoms Review of Systems PHQ Score Initial Depression Screen Score: 0 SCORE Physical Exam Vitals & Measurements T: 36.4 ???C(Oral) HR: 76(Peripheral) RR: 18 BP: 132/88 SpO2: 98% HT: 65 in HT: 165.0 cm WT: 69.6 kg WT: 153.442 lb BMI: 25.56 General: alert, no acute distress ENMT: oral mucosa moist, no pharyngeal erythema or exudate Cardiovascular: regular rate and rhythm, normal peripheral perfusion Respiratory: Lungs CTA, respirations non labored Extremities: no deformity, no trauma Neurological: oriented x 4, LOC appropriate for age, CN II-XII intact, motor strength equal & normal bilaterally, speech normal Assessment/Plan 1. Dysuria (R30.0: Dysuria) u/a negative in office. pt having abdominal pain, nausea and burning with urination. suspects this may be from ozempic. she will take a break from it for a few weeks. if pain does not improve, will order u/s of gallbladder. RTC as needed Ordered: Urine Culture Urnls Dip Stick Auto w/o Microscopy POC 18461 2. Non-smoker (Z78.9: Other specified health status) continue not smoking 3. BMI 25.0-25.9,adult (Z68.25: Body mass index [BMI] 25.0-25.9, adult) BMI education Follow-up No qualifying data available Problem List/Past Medical History Ongoing Abdominal pain Adult BMI 27.0-27.9 kg/sq m Allergic rhinitis Asthma BMI 29.0-29.9,adult Breast cancer screening by mammogram Cough Dysuria Encounter for weight management GERD (gastroesophageal reflux disease) Hypothyroidism Shortness of breath Urinary tract infection Vaginal yeast infection Well woman exam Wheezing Historical No qualifying data Procedure/Surgical History Ablation, Colonoscopy, EGD (esophagogastroduodenoscopy) and closure of duodenal fistula, Surgery. Medications Albuterol (Eqv-Ventolin HFA) 90 mcg/inh inhalation aerosol, 180 mcg= 2 puff(s), Inhalation, q4hr, 3 refills budesonide 90 mcg/inh inhalation powder, 1 inh, Inhalation, BID, 11 refills cetirizine 10 mg Tab, 10 mg= 1 tab(s), Oral, Daily, 3 refills cyclobenzaprine 10 mg Tab, 10 mg= 1 tab(s), Oral, TID, PRN Diflucan 150 mg Tab, 150 mg= 1 tab(s), Oral, Once, 1 refills levothyroxine 50 mcg (0.05 mg) Tab, 50 mcg= 1 tab(s), Oral, Daily liothyronine 5 mcg Tab, 5 mcg= 1 tab(s), Oral, Daily, 3 refills nystatin 100,000 units/mL Oral Susp, [id number] unit(s)= 5 mL, Oral, q6hr ondansetron 4 mg Dis Tab, 4 mg= 1 tab(s), Oral, q6hr, PRN, 1 refills Ozempic 2 mg/3 mL (0.25 mg or 0.5 mg dose) subcutaneous solution, 1.2 mg, SubCutaneous, qWeek Protonix 40 mg Tab-DR, 40 mg= 1 tab(s), Oral, Daily, 3 refills semaglutide, 1.8 mg, SubCutaneous, q7day, 2 refills semaglutide, 1.2 mg, SubCutaneous, qWeek Allergies No Known Medication Allergies Social History Alcohol Never., 10/18/2024 Substance Abuse Never., 10/18/2024 Tobacco Never (less than 100 in lifetime) Tobacco Use:., 10/18/2024 Never (less than 100 in lifetime) Tobacco Use:., 10/12/2023 Family History Diabetes mellitus type 1: Mother. Immunizations Vaccine Date Status Comments influenza virus vaccine, inactivated 09/14/2024 Recorded zoster vaccine, inactivated 07/27/2024 Recorded zoster vaccine, inactivated 02/23/2024 Recorded diphtheria/pertussis, acel/tetanus adult 02/05/2024 Recorded influenza virus vaccine, inactivated 08/28/2023 Recorded influenza virus vaccine, inactivated 09/26/2022 Recorded SARS-CoV-2 (COVID-19) [id number] 09/26/2022 Recorded influenza virus vaccine, inactivated 09/15/2021 Recorded SARS-CoV-2 (COVID-19) mRNA BNT-162b2 vax 09/15/2021 Recorded 2023-04-16: TPV50 SARS-CoV-2 (COVID-19) mRNA BNT-162b2 vax 03/04/2021 Recorded SARS-CoV-2 (COVID-19) mRNA BNT-162b2 vax 02/10/2021 Recorded influenza virus vaccine, inactivated 09/06/2020 Recorded influenza virus vaccine, inactivated 09/20/2019 Recorded influenza virus vaccine, inactivated 08/13/2018 Recorded influenza virus vaccine, inactivated 10/13/2017 Recorded influenza virus vaccine, inactivated 09/20/2017 Recorded diphtheria/pertussis, acel/tetanus adult 09/08/2016 Recorded influenza virus vaccine, inactivated 09/08/2016 Recorded influenza virus vaccine, inactivated 10/08/2015 Recorded Lab Results Ambulatory Point of Care Results Bilirubin Urine Dipstick: Negative (10/18/24 16:08:00) Blood Urine Dipstick: Negative (10/18/24 16:08:00) Glucose Urine Dipstick: Negative (10/18/24 16:08:00) Ketones Urine Dipstick: Negative (10/18/24 16:08:00) Leukocytes Urine Dipstick: Negative (10/18/24 16:08:00) Nitrite Urine Dipstick: Negative (10/18/24 16:08:00) Protein Urine Dipstick: Negative (10/18/24 16:08:00) Specific [employer] Urine Dipstick: 1.020 (10/18/24 16:08:00) Urine Appearance Urine Dipstick: Clear (10/18/24 16:08:00) Urine Color Urine Dipstick: Yellow (10/18/24 16:08:00) Urobilinogen Urine Dipstick: Normal 0.2-1 EU/dl (10/18/24 16:08:00) pH Urine Dipstick: 5.5 (10/18/24 16:08:00) Result Comment: Electronical ly Signed By: Jazmyn De La Torre\.br\Date and Time Signed: 10/18/24 17:03 EST C URINE Observed: 10/18/2024 4:14 PM Status: F Source: [facility] Microbiology PROCEDURE: Urine Culture [R1] SOURCE: U CleanCatch BODY SITE: COLLECTED DATE/TIME: 10/18/2024 16:14 EST RECEIVED DATE/TIME: 10/19/2024 17:59 EST START DATE/TIME: 10/19/2024 17:59 EST FREE TEXT SOURCE: Jazmyn De La Torre, Jazmyn Freedman FINAL REPORTS Final Report [] Verified Date/Time: 10/21/2024 10:50 EST 2,000 cfu/ml Mixed skin contaminants Performing Locations R1: This test was performed at: [facility] [address] [place] [address], [address] [place] [address], Performed By: #### [id number] # ### [facility] [address] [place] [id number] C URINE Observed: 10/18/2024 4:14 PM Status: F Source: [facility] Microbiology PROCEDURE: Urine Culture [R1] SOURCE: U CleanCatch BODY SITE: COLLECTED DATE/TIME: 10/18/2024 16:14 EST RECEIVED DATE/TIME: 10/19/2024 17:59 EST START DATE/TIME: 10/19/2024 17:59 EST FREE TEXT SOURCE: Jazmyn De La Torre, Jazmyn Freedman FINAL REPORTS Final Report [] Verified Date/Time: 10/21/2024 10:50 EST 2,000 cfu/ml Mixed skin contaminants Performing Locations R1: This test was performed at: [facility], [address] [place] [address], [id number], Performed By: #### [id number] # ### [facility] [address] [place] [id number] [facility] MEDICINE OFFICE/CLINI C NOTE Observed: 08/08/2024 11:08 AM Status: F Source: [facility] Medicine Office/Clini c Note HPI Staff Pt presents today due to chest congestion & cough. _Respiratory C/O: Duration: _ all summer Body aches: no Chest congestion: yes Chills: no Cough: yes Ear complaints: no itchy both Eye itching/watering: no Fever: no Headache: no Nasal congestion: no Nasal discharge: no Poor appetite: no Reduced activity: no Sinus pain/pressure: no Sneezing: no Sputum production: no Wheezing: yes Ill contacts: no Remedies tried: Her inhaler is not working for her Nights when he is laying down wheezing is worse History of Present Illness pt presents today with URI symptoms Review of Systems PHQ Score Initial Depression Screen Score: 0 SCORE Physical Exam Vitals & Measurements T: 36.2 ?C(Temporal Artery) HR: 78(Peripheral) RR: 18 BP: 116/78 SpO2: 96% HT: 65 in HT: 165.0 cm WT: 70.4 kg WT: 154.88 lb BMI: 25.86 General: alert, no acute distress ENMT: oral mucosa moist, no pharyngeal erythema or exudate Cardiovascular: regular rate and rhythm, normal peripheral perfusion Respiratory: Lungs expiratory wheezes, respirations non labored Extremities: no deformity, no trauma Neurological: oriented x 4, LOC appropriate for age, CN II-XII intact, motor strength equal & normal bilaterally, speech normal Assessment/Plan 1. Shortness of breath (R06.02: Shortness of breath) pt getting short of breath on exertion. kenalog 60mg given in office today RTC 3 months for weight management Ordered: benzonatate, 200 mg = 1 cap(s), Oral, TID, X 7 day(s), # 21 cap(s), Refills(s) 0, Pharmacy: [facility]/pharmacy #[id number], 165, cm, 08/08/24 10:51:00 EDT, Height/Length Dosing, 70.4, kg, 08/08/24 10:51:00 EDT, Weight Dosing 2. Wheezing (R06.2: Wheezing) see above Ordered: benzonatate, 200 mg = 1 cap(s), Oral, TID, X 7 day(s), # 21 cap(s), Refills(s) 0, Pharmacy: [facility]/pharmacy #[id number], 165, cm, 08/08/24 10:51:00 EDT, Height/Length Dosing, 70.4, kg, 08/08/24 10:51:00 EDT, Weight Dosing 3. Cough (R05.9: Cough, unspecified) pt is coughing. all day but worse at night. unable to sleep. z pack and tessalon pearls sent in also sent in inhalers Ordered: benzonatate, 200 mg = 1 cap(s), Oral, TID, X 7 day(s), # 21 cap(s), Refills(s) 0, Pharmacy: [facility]/pharmacy #[id number], 165, cm, 08/08/24 10:51:00 EDT, Height/Length Dosing, 70.4, kg, 08/08/24 10:51:00 EDT, Weight Dosing 4. BMI 25.0-25.9,adult (Z68.25: Body mass index [BMI] 25.0-25.9, adult) BMI education given Ordered: benzonatate, 200 mg = 1 cap(s), Oral, TID, X 7 day(s), # 21 cap(s), Refills(s) 0, Pharmacy: [facility]/pharmacy #[id number], 165, cm, 08/08/24 10:51:00 EDT, Height/Length Dosing, 70.4, kg, 08/08/24 10:51:00 EDT, Weight Dosing 5. Non-smoker (Z78.9: Other specified health status) continue not smoking Ordered: benzonatate, 200 mg = 1 cap(s), Oral, TID, X 7 day(s), # 21 cap(s), Refills(s) 0, Pharmacy: [facility]/pharmacy #[id number], 165, cm, 08/08/24 10:51:00 EDT, Height/Length Dosing, 70.4, kg, 08/08/24 10:51:00 EDT, Weight Dosing Orders: albuterol, 180 mcg, 2 puff(s), Inhalation, q4hr, 8.5 gm, Refill(s) 3, [facility]/pharmacy #[id number], 165, cm, 08/08/24 10:51:00 EDT, Height/Length Dosing, 70.4, kg, 08/08/24 10:51:00 EDT, Weight Dosing albuterol, 180 mcg, 2 puff(s), Inhalation, q4hr, 8.5 gm, Refill(s) 3, [facility]/pharmacy #[id number], 165, cm, 03/30/24 14:41:00 EDT, Height/Length Dosing, 75, kg, 03/30/24 14:41:00 EDT, Weight Dosing azithromycin, = 1 packet(s), Oral, As Directed, as directed on package labeling, X 5 day(s), # 6 tab(s), Refills(s) 0, Pharmacy: [facility]/pharmacy #[id number], 165, cm, 08/08/24 10:51:00 EDT, Height/Length Dosing, 70.4, kg, 08/08/24 10:51:00 EDT, Weight Dosing budesonide, 1 inh, Inhalation, BID, 1 EA, Refill(s) 11, [facility]/pharmacy #[id number], 165, cm, 08/08/24 10:51:00 EDT, Height/Length Dosing, 70.4, kg, 08/08/24 10:51:00 EDT, Weight Dosing cyclobenzaprine, 10 mg = 1 tab(s), Oral, TID, PRN for spasm, # 30 tab(s), Refills(s) 0, [id number] 165, cm, 08/08/24 10:51:00 EDT, Height/Length Dosing, 70.4, kg, 08/08/24 10:51:00 EDT, Weight Dosing Follow-up No qualifying data available Problem List/Past Medical History Ongoing Abdominal pain Adult BMI 27.0-27.9 kg/sq m Allergic rhinitis Asthma BMI 29.0-29.9,adult Breast cancer screening by mammogram Cough Encounter for weight management GERD (gastroesophageal reflux disease) Hypothyroidism Shortness of breath Vaginal yeast infection Well woman exam Wheezing Historical No qualifying data Procedure/Surgical History Ablation, Colonoscopy, EGD (esophagogastroduodenoscopy) and closure of duodenal fistula, Surgery. Medications Albuterol (Eqv-Ventolin HFA) 90 mcg/inh inhalation aerosol, 180 mcg= 2 puff(s), Inhalation, q4hr, 3 refills azithromycin 250 mg Tab, 1 packet(s), Oral, As Directed benzonatate 200 mg oral capsule, 200 mg= 1 cap(s), Oral, TID budesonide 90 mcg/inh inhalation powder, 1 inh, Inhalation, BID, 11 refills cetirizine 10 mg Tab, 10 mg= 1 tab(s), Oral, Daily, 3 refills cyclobenzaprine 10 mg Tab, 10 mg= 1 tab(s), Oral, TID, PRN Diflucan 150 mg Tab, 150 mg= 1 tab(s), Oral, Once, 1 refills levothyroxine 75 mcg (0.075 mg) Tab, 75 mcg= 1 tab(s), Oral, Daily, 1 refills liothyronine 5 mcg Tab, 5 mcg= 1 tab(s), Oral, Daily, 3 refills ondansetron 4 mg Dis Tab, 4 mg= 1 tab(s), Oral, q6hr, PRN, 1 refills Ozempic 2 mg/3 mL (0.25 mg or 0.5 mg dose) subcutaneous solution, 1.2 mg, SubCutaneous, qWeek Protonix 40 mg Tab-DR, 40 mg= 1 tab(s), Oral, Daily, 3 refills semaglutide, 1.8 mg, SubCutaneous, q7day, 2 refills semaglutide, 1.2 mg, SubCutaneous, qWeek Allergies No Known Medication Allergies Social History Tobacco Never (less than 100 in lifetime) Tobacco Use:. Never Smokeless Tobacco Use:. Cigarettes, Household tobacco concerns: No., 08/08/2024 Never (less than 100 in lifetime) Tobacco Use:., 10/12/2023 Family History Diabetes mellitus type 1: Mother. Immunizations Vaccine Date Status Comments influenza virus vaccine, inactivated 09/26/2022 Recorded SARS-CoV-2 (COVID-19) [id number].[id number] 09/26/2022 Recorded influenza virus vaccine, inactivated 09/15/2021 Recorded SARS-CoV-2 (COVID-19) mRNA BNT-162b2 vax 09/15/2021 Recorded 2023-04-16: TPV50 SARS-CoV-2 (COVID-19) mRNA BNT-162b2 vax 03/04/2021 Recorded SARS-CoV-2 (COVID-19) mRNA BNT-162b2 vax 02/10/2021 Recorded influenza virus vaccine, inactivated 09/06/2020 Recorded influenza virus vaccine, inactivated 09/20/2019 Recorded influenza virus vaccine, inactivated 08/13/2018 Recorded influenza virus vaccine, inactivated 10/13/2017 Recorded influenza virus vaccine, inactivated 09/20/2017 Recorded diphtheria/pertussis, acel/tetanus adult 09/08/2016 Recorded influenza virus vaccine, inactivated 09/08/2016 Recorded influenza virus vaccine, inactivated 10/08/2015 Recorded Result Comment: Electronical ly Signed By: Jazmyn De La Torre\.br\Date and Time Signed: 08/08/24 11:09 EDT AMBULATORY VISIT SUMMARY Observed: 08/08 11:05 AM Status: F Source: [facility] Ambulatory Visit Summary SUSAN BAKER :1970 Visit Date:08/08/2024 Ambulatory Visit Instructions Your Diagnosis Shortness of breath Wheezing Cough BMI 25.0-25.9,adult Non-smoker Your Care Team Attending Physician - Jazmyn De La Torre Primary Care Physician - Jazmyn De La Torre This Is Your Medications List Non-Formulary Medication (semaglutide) albuterol (Albuterol (Eqv-Ventolin HFA) 90 mcg/inh inhalation aerosol) azithromycin (azithromycin 250 mg Tab) benzonatate (benzonatate 200 mg oral capsule) budesonide (budesonide 90 mcg/inh inhalation powder) cetirizine (cetirizine 10 mg Tab) cyclobenzaprine (cyclobenzaprine 10 mg Tab) fluconazole (Diflucan 150 mg Tab) levothyroxine (levothyroxine 75 mcg (0.075 mg) Tab) liothyronine (liothyronine 5 mcg Tab) ondansetron (ondansetron 4 mg Dis Tab) pantoprazole (Protonix 40 mg Tab-DR) semaglutide semaglutide (Ozempic 2 mg/3 mL (0.25 mg or 0.5 mg dose) subcutaneous solution) Procedures Performed Ablation, Colonoscopy, EGD (esophagogastroduodenoscopy) and closure of duodenal fistula, Surgery. Discharge Vitals Temperature (Temporal Artery) 36.2 ?C Heart Rate (Peripheral) 78 Respiratory Rate 18 Blood Pressure 116/78 Height 165.0 cm Height 65 in Weight 70.4 kg Weight 154.88 lb BMI 25.86 What to do next Scheduled Follow-Up Appointments Wednesday 8:40 AM EST With: Jazmyn De La Torre Where: [place] [id number]- Medications What How Much When Why Instructions New albuterol (Albuterol (Eqv-Ventolin HFA) 90 mcg/ inh inhalation aerosol) 2 Puffs Inhalation Every 4 hours Refills: 3 Pickup at [facility]/pharmacy #[id number] New azithromycin (azithromycin 250 mg Tab) 1 Packets By Mouth As Directed Duration: 5 Days as directed on package labeling Pickup at [facility]/pharmacy #[id number] New benzonatate (benzonatate 200 mg oral capsule) 1 Capsules By Mouth 3 times a day Shortness of breath Wheezing Cough BMI 25.0-25.9,adult Non-smoker Duration: 7 Days Pickup at [facility]/pharmacy #[id number] New budesonide (budesonide 90 mcg/ inh inhalation powder) 1 Inhalation Inhalation 2 times a day Refills: 11 Pickup at [facility]/pharmacy #[id number] Unchanged cetirizine (cetirizine 10 mg Tab) 1 Tablets By Mouth Every day Unchanged cyclobenzaprine (cyclobenzaprine 10 mg Tab) 1 Tablets By Mouth 3 times a day as needed for for spasm Pickup at [facility]/pharmacy #[id number] Unchanged fluconazole (Diflucan 150 mg Tab) 1 Tablets By Mouth Once Encounter for weight management Vaginal yeast infection take 1 tab on day 1 and one tab on day 4 Unchanged levothyroxine (levothyroxine 75 mcg (0.075 mg) Tab) 1 Tablets By Mouth Every day Unchanged liothyronine (liothyronine 5 mcg Tab) 1 Tablets By Mouth Every day Duration: 90 Days Unchanged Non-Formulary Medication (semaglutide) 1.8 Milligram Subcutaneous Every 7 days Unchanged ondansetron (ondansetron 4 mg Dis Tab) 1 Tablets By Mouth Every 6 hours as needed for Nausea/Vomiting Unchanged pantoprazole (Protonix 40 mg Tab-DR) 1 Tablets By Mouth Every day BMI 28.0-28.9,adult Over weight Duration: 90 Days Unchanged semaglutide 1.2 Milligram Subcutaneous Every week through [facility] Unchanged semaglutide (Ozempic 2 mg/ 3 mL (0.25 mg or 0.5 mg dose) subcutaneous solution) 1.2 Milligram Subcutaneous Every week 1.2mg through [facility] Pharmacy Information [id number]: [address], [place] [id number] [phone] Allergies No Known Medication Allergies Problems Ongoing - Any problem that you are currently receiving treatment for. Abdominal pain Adult BMI 27.0-27.9 kg/sq m Allergic rhinitis Asthma BMI 29.0-29.9,adult Breast cancer screening by mammogram Cough Encounter for weight management GERD (gastroesophageal reflux disease) Hypothyroidism Shortness of breath Vaginal yeast infection Well woman exam Wheezing Patient Survey You may receive a survey via text or e-mail asking about your office visit. Please share your experience with us by completing your survey. We appreciate your feedback and thank you for choosing us for your care. ALLERGIES DATE TYPE / CODE NAME / CODE REACTION SEVERITY SOURCE /[id number](SNOME D CT) No Known Medication Allergies [facility] ENCOUNTERS ADMIT/DISCHARGE ACCOUNT NUMBER ADMITTING ENCOUNTER CLASS LOCATION SOURCE 04/19/2025/04/19/20 [id number] Ambulatory Building:NO [place] NB OB [facility] 04/19/2025/04/19/20 [id number] Ambulatory Building:NO [place] NB OB [facility] 03/14/2025/03/14/20 [id number] Ambulatory Building:NO [place] NB OB [facility] 02/16/2025/02/17/20 [id number] Ambulatory [facility] BillyBui lding:[facility] 12/06/2024/12/06/19 [id number] NOA Lopez Ambulatory MCBuildin g:[facility] 12/06/2024/12/06/19 [id number] Ambulatory [facility] BillyBui lding:[facility] Benitajulia m: [id number] [facility] 11/07/2024/11/07/20 24 [id number] Ambulatory [facility] BillyBui lding:[facility] 10/18/2024/10/18/20 24 [id number] NOA Lopez L Ambulatory FTMCBuildin g:FT LAB [facility] 10/18/2024/10/18/20 24 [id number] Ambulatory FT BelllazueBui lding:FT Billy [facility] 08/08/2024/08/08/20 24 [id number] Ambulatory FT BelllazueBui lding:FT Gregorio m: CD:[id number] [address] [place] [address] 06/30/2024/06/30/20 24 [id number] Ambulatory FT BillyBui lding:FT [place] [facility] PAYERS ENCOUNTER GUARANTOR PAYER SUBSCRIBER SOURCE 04/19/2025 SUSAN CARRASQUILLO: [place] [address]Fkt: (HP) (WP) Primary Insurance:[employer] licy Number: [id number] ctive Date:2022-11-29 ANSHU CARRASQUILLO: [id number] [place], [id number] [facility] EPIC 04/19/2025 SUSAN CARRASQUILLO: [place] [address]Lif: (HP) (WP) Primary Insurance:BCBSPo licy Number: [id number] ctive Date:2022-11-29 ANSHU CARRASQUILLO: [id number] [place] [address] [facility] EPIC 03/14/2025 SUSAN CARRASQUILLO: [place] [address]Mpc: (HP) (WP) Primary Insurance:BCBSPo licy Number: [id number] ctive Date:2022-11-29 ANSHU SANDOVALJailene: [id number] [place] [address] [facility] 02/16/2025 SUSAN BAKERB: BLACK RDTel: ~ ~(41 (HP) Primary Insurance:[employer] Policy Number: [id number] ctive Date:2024-11-29[address], [place] [address]XU: ANSHU [facility] 12/06/2024 SUSANAzul BAKERB: BLACK RDTel: ~ ~(41 (HP) Primary Insurance:[employer] Policy Number: [id number] ctive Date:2024-12-06[address], [place] [address]GY: ANSHU Caputo [facility] 12/06/2024 SUSANAzul BAKERB: BLCAK RDTel: ~ ~(41 (HP) Primary Insurance:[employer] Policy Number: [id number] ctive Date:2024-12-06[address] [place]EL [address]JC: ANSHU [facility] 11/07/2024 SUSANAzul BAKERB: BLACK RDTel: ~ ~(41 (HP) Primary Insurance:[employer] Policy Number: [id number] ctive Date:2023-09-14[address], [place] [address]QB: [facility] 10/18/2024 SUSAN OLIVIAB: BLACK RDTel: ~ ~(41 (HP) Primary Insurance:[employer] Policy Number: [id number] ctive Date:2024-10-18[address], [place] [address]HD: ANSHU Harshal [facility] 10/18/2024 SUSANAzul BAKERB: BLACK RDTel: ~ ~(41 (HP) Primary Insurance:[employer] Policy Number: [id number] ctive Date:2023-09-14 [address], [place] [address]DX: [facility] 08/08/2024 SUSANAzul BAKERB: BLACK RDTel: ~ ~(41 (HP) Primary Insurance:[employer] Policy Number: [id number] ctive Date:2023-09-14 [address], [place] [address]LD: [facility] 2024 SUSAN SANDOVALB: BLACK RDTel: ~ ~(41 (HP) Primary Insurance:[employer] Policy Number: [id number] ctive Date:2023-09-14 [address], [place] [address]BK: [facility]
[2025-04-20 04:07] LABS: CA 19-9 16 U/mL (0-35); CEA 3.2 ng/mL (0.0-4.7)
== END 2025-04-19 10:51 | disposition home or self-care (01) ==
LOC: LAB 10:52
PROVIDERS: PCP Nurse Practitioner; Visit Provider Obstetrics & Gynecology
DX: R10.2 Pelvic and perineal pain (principal); N94.89 Other specified conditions associated with female genital organs and menstrual cycle; R19.00 Intra-abdominal and pelvic swelling, mass and lump, unspecified site; N95.0 Postmenopausal bleeding
CPT/HCPCS: 36415; 82378; 86301; 86304

== ENCOUNTER 2025-08-23 08:57 | Outpatient (OUT) | payer BC, SELFPAY ==
--- OUTSIDE RECORDS SUMMARY | 2020-05-17 06:15 | XMS_ITS | Continuity of Care Document ---
Author Organization [facility] Address [address] [place] [phone] Phone Care Team Providers Care Moisture Tester Name Role Phone Albert Jennings Unavailable Unavailable Procedures Procedure Date Covid Testing [facility] Results Test Name Date and Time Measure Units Reference Range Abnormal Flag Status Comments Panel Description: SARS-CoV-2, NEFTALY Final SARS-CoV- 2, NEFTALY 020 16:07:00 Not Detected Not Detected Final Testing was per formed using the Aptima SARS-CoV-2 assay.This test was developed and its performance characteristics determinedby [employer]. This test has not been FDA cleared orapproved. This test has been authorized by FDA under an Emergency UseAuthorization (EUA). This test is only authorized for the duration oftime the declaration that circumstances exist justifying theauthorization of the emergency use of in vitro diagnostic tests fordetection of SARS-CoV-2 virus and/or diagnosis of COVID-19 infectionunder section 564(b)(1) of the Act, 21 U.S.C. 360bbb-3(b)(1), unlessthe authorization is terminated or revoked sooner.When diagnostic testing is negative, the possibility of a falsenegative result should be considered in the context of a patient'srecent exposures and the presence of clinical signs and symptomsconsistent with COVID-19. An individual without symptoms of COVID-19and who is not shedding SARS-CoV-2 virus would expect to have anegative (not detected) result in this assay.Performed by:[facility] [place] (=[place]) Panel Description: SARS-CoV-2 Antibody, IgM [facility] SARS-CoV- 2 Antibody, IgM 020 08:46:00 Negative Negative Final This sample do es not contain detectable SARS-CoV-2 IgM antibodies.This negative result does not rule out SARS-CoV-2 infection.Correlation with epidemiologic risk factors and other clinical andlaboratory findings is recommended. Serologic results should not beused as the sole basis to diagnose or exclude recent [id number].P erformed by:Jaylan Chaudhry (=G) Panel Description: SARS-CoV-2 Antibody, IgG [facility] SARS-CoV- 2 Antibody, IgG 020 07:25:00 Negative Negative Final This sample do es not contain detectable SARS-CoV-2 IgG antibodies.This negative result does not rule out SARS-CoV-2 infection.Correlation with epidemiologic risk factors and other clinical andlaboratory findings is recommended. Serologic results should not beused as the sole basis to diagnose or exclude recent [id number].T his assay was performed using the Pulido SARS-CoV-2 IgG assay.Performed by:Jaylan Chaudhry (=G) Advance Directives Directive Yes / No Effective Date File Name No Information Encounters Encounter Description Practice Location Reason(s) For Visit Diagnoses Date Provider Providers Copied on Encounter [facility], [address] [place] [address], [id number], [place] tel:[phone] COVID [facility] Encounter for screening for other viral disease Jer[facility]. [address] [place] [address], [id number], [place]. tel:[phone] Family History Family Member Type Diagnosis Age At Onset No Information Payers Payer name Insurance type Covered libertarian ID Ann liajarret(s) Marck [id number] Social History Type Description Quantity Date Captured Comments Alcohol Use Details Unknown Caffeine Use Details Unknown Tobacco Use Status No Information Smoking Status No Information Sex Female Sexual Orientation Straight or heterosexual Gender Identity Female Chief Complaint And Reason For Visit No Information Reason For Referral Reason For Referral No Information History Of Present Illness Encounter Date Complaint History Of Prese nt Illness No Information Functional Status Date Functional Assessmen t No Information Instructions Date Instruction Additional Infor mation No Information Assessments Type Assessment Date assessment Encounter for screening for othe r viral disease Patient Care Teams Name Effective Dates (start - stop) Status Members No Information
--- OUTSIDE RECORDS SUMMARY | 2025-08-23 08:59 | XMS_ITS | Clinical Summary ---
Author Organization [facility] Address [address] [place] [address] Care Team Providers Care Agricultural Education Instructor Name Role Phone Luis Currie MD Primary Care Provider [phone] Allergies No known active allergies Medications cetirizine (ZyrTEC) 10 MG tablet Take 10 mg by mouth 05/19/2024 Active levothyroxine (Synthroid, Levoxyl) 50 MCG tablet See Instruction s, TAKE 1 TABLET BY MOUTH EVERY DAY, # 90 tab(s), Refills(s) 0, Pharmacy: [id number], 165, cm, 12/06/24 14:44:00 EST, Height/Therese th Dosing, 73.1, kg, 12/06/24 14:44:00 EST, Weight Dosing 10/23/2024 Active Encounters Date Type Department Care Team Description 07/24/2025 11:30 AM EDT Clinical Support [facility] [address] [phone] Kendra Huang, DO [place] (Primary Dx) 07/24/2025 Travel 06/20/2025 10:00 AM EDT Office Visit DINESH [facility]aitan [facility] [address] [phone] Kendra Huang, Encounter to discuss test results; Adnexal mass; Pelvic pain in female 06/20/2025 9:00 AM EDT Ancillary Procedure [facility] [address] [phone] Adnexal mass; Pelvic mass in female; PMB (postmenopausal bleeding) 06/20/2025 Travel from Last 3 Months Family History Relation Name Status Comments Father Mother Alive Social History Tobacco Use Types Packs/Day Years Used Date Smoking Tobacco: Never Smokeless Tobacco: Never Tobacco Cessation:Counseling Given: Not Answered Alcohol Use Standard Drinks/Week Comments Not Currently 0 (1 standard drink = 0.6 oz pur e alcohol) Comments No Sex and Gender Information Value Date Recorded Sex Assigned at Not on file Legal Sex Female 7:08 PM EDT Gender Identity Not on file Sexual Orientation Not on file Last Filed Vital Signs Vital Sign Reading Time Taken Comments Blood Pressure 126/78 06/20/2025 9:20 AM EDT Pulse - - Temperature - - Respiratory Rate - - Oxygen Saturation - - Inhaled Oxygen Concentration - - Weight 76.7 kg (169 lb) 06/20/2025 9:20 AM EDT Height 162.6 cm (5' 4 ) 05/15/2019 12:00 PM EDT Body Mass Index 29.01 05/15/2019 12:00 PM EDT Plan of Treatment Upcoming Encounters Date Type Department Care Team (Late st Contact Info) Description 02/19/2026 9:30 AM EDT Office Visit DINESH [facility] [address] [phone] Kendra Huang, [address] [phone] Health Maintenance Due Date Last Done Comments CT Colonography 1968 Colonoscopy 1968 Colorectal Cancer Screening 1968 FIT-DNA 1968 FIT 1968 FOBT 1968 Sigmoidoscopy 1968 Pap Smear 1989 Cervical Cancer Screening 1998 HPV/Cotest 1998 Mammogram 2008 Influenza Vaccine (#1) 2025 , 08/28/2023, 09/26/2022, Additional history exists Procedures Procedure Name Priority Date/Time Associated Diagnosis Comments US PELVIS TRANSVAGINAL Routine 06/20/2025 9:15 AM EDT Adnexal mass Pelvic mass in female PMB (postmenopausal bleeding) from Last 3 Months Results * US pelvis transvaginal (06/20/2025 9:15 AM EDT) Anatomical Region Laterality Modality Pelvis Ultrasound Study GA Study Date Study IVONNE Working IVONNE (Source) 06/20/2025 Narrative 06/20/2025 11:14 AM EDT Images from the original result were not included. Obstetrics & Gynecology [address] [place] [address] [address] [place] [address] - - - - - - - - - - - - - - - - - - - - - - - - - - - - - - - - - - - - - - - - - - - - - - - - - - - - - - - - - - - - - - - - - - - - Date of exam: 06/20/25 Patient name: Susan Francis : 1970 Age: 54 y.o. - - - - - - - - - - - - - - - - - - - - - - - - - - - - - - - Indication: Left adnexal cyst Surgical History: Ablation Method: Transabdominal and transvaginal ultrasound examination View: Sufficient - - - - - - - - - - - - - - - - - - - - - - - - - - - - - - - Measurements: Uterus: 7.3 x 3.4 x 3.5 cm Volume: 45.7 cm Endometrial thickness: 1.8 mm Right ovary: 1.2 x 1.5 x 1.0 cm Volume: 0.8 cm Left ovary: not visualzied - - - - - - - - - - - - - - - - - - - - - - - - - - - - - - - Findings: Uterus: The uterus is normal in size and contour. Position: Anterverted Malformations: none Myometrium: The myometrium is rather inhomogenous in echotexture, without overt fibroid. Fibroid(s): none Endometrium: The patient has a history of an endometrial ablation. Polyp(s): none Cervix: The cervix contains several small thin walled sonolucent cysts. - - - - - - - - - - - - - - - - - - - - - - - - - - - - - - - Right ovary: Visualized Morphology: normal appearing Cyst(s): none Doppler: power doppler shows ovarian blood profusion Right adnexa: no overt adnexal mass - - - - - - - - - - - - - - - - - - - - - - - - - - - - - - - Left ovary: Not visualized Morphology: n/a Left adnexa: no overt adnexal mass - - - - - - - - - - - - - - - - - - - - - - - - - - - - - - - Cul de Sac: no free fluid - - - - - - - - - - - - - - - - - - - - - - - - - - - - - - - - - - - - - - - - - - - - - - - - - - - - - - - - - - - - - - - - - - - - Impression: The uterus is normal in size and contour. The myometrium is rather inhomogenous in echotexture. The patient has a history of an endometrial ablation. The right ovary appears normal in size and echotexture. The left ovary is not visible. The previously seen adnexal mass is not visualized on today's ultrasound. There is no free fluid visible within the pelvis. - - - - - - - - - - - - - - - - - - - - - - - - - - - - - - - - - - - - - - - - - - - - - - - - - - - - - - - - - - - - - - - - - - - - us Kendra Huang DO IMG US PROCEDURES Final Re sult from Last 3 [place] [phone] [employer] Care Teams Agricultural Education Instructor Relationship Specialty Start Date End Date Luis Currie MD [address] [place] [address] PCP - General Family Medicine 03/14/25
--- OUTSIDE RECORDS SUMMARY | 2025-08-23 09:00 | XMS_ITS | Encounter Summary ---
Author Organization [facility] Address [address] [place] [address] Care Team Providers Care Can Closing Machine Tender Name Role Phone Luis Currie MD Primary Care Provider [phone] Encounter Details Date Type Department Care Team (Late st Contact Info) Description 04/29/2025 Results Follow-Up [facility] [address] [facility] [address] [phone] Kendra Huang DO [address] [phone] [place] Social History Tobacco Use Types Packs/Day Years Used Date Smoking Tobacco: Never Smokeless Tobacco: Never Alcohol Use Standard Drinks/Week Comments Not Currently 0 (1 standard drink = 0.6 oz pur e alcohol) Comments No Sex and Gender Information Value Date Recorded Sex Assigned at Not on file Legal Sex Female 7:08 PM EDT Gender Identity Not on file Sexual Orientation Not on file documented as of this encounter Plan of Treatment Upcoming Encounters Date Type Department Care Team (Late st Contact Info) Description 02/19/2026 9:30 AM EDT Office Visit [facility] [address] [facility] [address] [phone] Kendra Huang DO [address] [phone] documented as of this encounter Visit Diagnoses Not on filedocumented in this encounter Care Teams Can Closing Machine Tender Relationship Specialty Start Date End Date Luis Currie MD [address] [place] [address] PCP - General Family Medicine 03/14/25 documented as of this encounter
--- NOTE | 2025-08-23 09:01 | MM_ITS ---
Patient Name: ROSSY BAKER MR#: [id number] : 1970 Exam Date: 08/23/2025 Ordering Doctor: DR. KORTNEY SHERMAN D.O. RADIOLOGY REPORT PROCEDURE: MM TOMOSYNTHESIS SCREENING BI COMPARISON: MM TOMOSYNTHESIS SCREENING BI, 06/13/2024. MAMMO POST BIOPSY BILATERAL, 08/29/2021. MG MAMM SCREEN 3D HARI CAD, 08/13/2021. INDICATIONS: Screening Calculator Name NCI Breast Cancer Risk Assessment Tool 5 Year Breast Cancer Risk 1.70% Lifetime Breast Cancer Risk 10.40% Personal Breast Cancer No Personal Ovarian Cancer No Treatments None Family Cancers Father with lung cancer at age 56. LOCATION: [facility] [place] BREAST COMPOSITION: The breasts are heterogeneously dense, which may obscure small masses. FINDINGS: DIAGNOSTIC CATEGORY 1--NEGATIVE. RIGHT BREAST: No significant suspicious finding. LEFT BREAST: No significant suspicious finding. RECOMMENDATIONS: ROUTINE MAMMOGRAM AND CLINICAL EVALUATION IN 12 MONTHS. Dictated by: Andres Garcia DO on 08/23/2025 at 15:01 Approved by: Andres Garcia DO on 08/23/2025 at 15:04
--- OUTSIDE RECORDS SUMMARY | 2025-08-23 09:01 | XMS_ITS | CCD ---
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 Name Role Phone Lorraine Esparza Unavailable FRANCY, DR NIRALI Arreguin Admitting Unavailable SEN, DR NIRALI Arreguin Attending Unavailable SEN, DR NIRALI Arreguin Primary Care Unavailable SEN, DR NIRALI Arreguin Consulting Unavailable WEST, DR SHE Burkett Consulting Unavailable OLEXA, LORRAINE Admitting Unavailable OLEXA, LORRAINE Attending Unavailable SEN, DR NIRALI Arreguin Primary Care Unavailable ZIMARLENA, DR CARROLL Reilly Consulting Unavailable OLEXA, LORRAINE Consulting Unavailable SEN, DR NIRALI Arreguin Admitting Unavailable ESN, DR NIRALI Arreguin Attending Unavailable SEN, DR NIRALI Arreguin Primary Care Unavailable SEN, DR NIRALI Arreguin Consulting Unavailable SEN, DR NIRALI Arreguin Admitting Unavailable SEN, DR NIRALI Arreguin Attending Unavailable SEN, DR NIRALI Arreguin Primary Care Unavailable SEN, DR NIRALI Arreguin Consulting Unavailable SEN, DR NIRALI Arreguin Admitting Unavailable SEN, DR NIRALI Arreguin Attending Unavailable EMMY, DR CARTER Primary Care Unavailable SEN, DR NIRALI Arreguin Consulting Unavailable ZIEBER, DR CARROLL Reilly Consulting Unavailable MELLO, DR SHE Burkett Admitting Unavailable MELLO, DR SHE Burkett Attending Unavailable SEN, DR NIRALI Arreguin Primary Care Unavailable WEST, DR SHE Burkett Consulting Unavailable MELLO, DR SHE Burkett Admitting Unavailable WEST, DR SHE Burkett Attending Unavailable SEN, DR NIRALI Arreguin Primary Care Unavailable WEST, DR SHE Burkett Consulting Unavailable FRANCY, DR NIRALI Arreguin Admitting Unavailable SEN, DR NIRALI Arreguin Attending Unavailable SEN, DR NIRALI Arreguin Primary Care Unavailable SEN, DR NIRALI Arreguin Consulting Unavailable WEST, DR SHE Burkett Consulting Unavailable FRANCY, NIRALI Arreguin Primary Care Physician Jazmyn Lopez Primary Care Physician NON STAFF Primary Care Provider UnavailDO Rocael James Attending Provider [phone] Rocael Faulkner Unavailable Rocael Faulkner Admitting Unavailable Rocael Faulkner Attending Unavailable NON STAFF Primary Care Unavailable Zulma Flores Admitting Unavailable Zulma Flores Attending Unavailable NON STAFF Primary Care Unavailable John, Jazmyn L Attending Unavailable John, Jazmyn L Admitting Unavailable John, Jazmyn L Attending Unavailable John, Jazmyn L Attending Unavailable John, Jazmyn L Attending Unavailable John, Jazmyn L Attending Unavailable John, Jazmyn L Attending Unavailable John, Jazmyn L Attending Unavailable John, Jazmyn L Attending Unavailable John, Jazmyn L Attending Unavailable John, Jazmyn L Attending Unavailable John, Jazmyn L Admitting Unavailable John, Jazmyn L Attending Unavailable Luis Currie MD Primary Care Provider [phone] John, CLINICAL ASST Jazmyn Freedman Attending Unavailable OMEGA, TOBACCO BALER TITI Liang Attending Unavailchico e NATAPRSYD, KENDRA Tripp Attending Unavailable NATAPRSYD, KENDRA Tripp Attending Unavailable NATAPRAQUILESRA, KENDRA Tripp Attending Unavailable NATAPRSYD, KENDRA Tripp Attending Unavailable Allergies Allergy Classification Reported Allergen(s) Allergy Type Date of Onset Reaction(s) Facility (3 sources) No Known Medication Allergies; Translations: [No Known Medication Allergies] Propensity to adverse reactions (disorder) [facility] Repository Medications Current Medications Medication Drug Class(es) Dates Sig (Normalized) Sig (Original) 0.25 MG, 0.5 MG Dose 3 ML semaglutide 0.68 MG/ML Pen Injector [Ozempic] (1 source) Start: 10-12-2023 inject 1.2 mg by subcutaneous injection every week Ozempic 2 mg/3 mL (0.25 mg or 0.5 mg dose) subcutaneous solution 1.2 mg, SubCutaneous, qWeek, 1.2mg through [facility], Refills(s) 0 Start Date: 10/12/23 Status: Ordered [id number] 200 actuat albuterol 0.09 mg/actuat metered dose inhaler (2 sources) beta2-Adrenergic Agonist take 2 puff(s) by inhalation every four hours as needed Ventolin HFA 90 MCG/ACT 2 puffs as needed Inhalation every 4 hrs Active Budesonide 0.09 MG/ACTUAT Dry Powder Inhaler (2 sources) Corticosteroid Start: 08-08-2024 budesonide 90 mcg/inh inhalation powder 1 inh, Inhalation, BID, 1 EA, Refill(s) 11, [facility]/pharmacy #[id number], 165, cm, 08/08/24 10:51:00 EDT, Height/Length Dosing, 70.4, kg, 08/08/24 10:51:00 EDT, Weight Dosing Start Date: 08/08/24 Status: Ordered cetirizine hydrochloride 10 mg oral tablet (8 sources) Histamine-1 Receptor Antagonist Start: 05-19-2024 cetirizine (ZyrTEC) 10 MG tablet Take 10 mg by mouth 05/19/2024 Active Start: 07-05-2023 take 1 tablet by francisco th once daily cetirizine 10 mg Tab 10 mg = 1 tab(s), Oral, Daily, # 90 tab(s), Refills(s) 3, [id number] 165.1, cm, 05/18/23 8:32:00 EDT, Height/Length Dosing, 80.9, kg, 05/18/23 8:32:00 EDT, Weight Dosing Start Date: 07/05/23 Status: Ordered [facility] ALL[facility] (CETRZN) 10 MG TAB (1 source) Start: 06-11-2023 [facility] ALL[facility] (CETRZN) 10 MG TAB [facility] (CETRZN) 10 MG TAB, Daily Start Date: 06/11/23 Status: Ordered cyclobenzaprine hydrochloride 10 mg oral tablet (2 sources) Muscle Relaxant Start: 12-04-2024 take 1 tablet by mouth three times daily as needed for muscle spasms cyclobenzaprine 10 mg Tab See Instructions, TAKE 1 TABLET BY MOUTH 3 TIMES A DAY NEEDED FOR SPASM, # 30 tab(s), Refills(s) 0, Pharmacy: [facility] STORE [id number], 165, cm, 10/18/24 16:04:00 EST, Height/Length Dosing, 69.6, kg, 10/18/24 16:04:00 EST, Weight Dosing Start Date: 12/04/24 Status: Ordered Start: 08-08-2024 take 1 tablet by francisco th three times daily as needed for muscle spasms cyclobenzaprine 10 mg Tab 10 mg = 1 tab(s), Oral, TID, PRN for spasm, # 30 tab(s), Refills(s) 0, Pharmacy: [facility]/pharmacy #[id number], 165, cm, 08/08/24 10:51:00 EDT, Height/Length Dosing, 70.4, kg, 08/08/24 10:51:00 EDT, Weight Dosing Start Date: 08/08/24 Status: Ordered levothyroxine sodium 0.05 mg oral tablet (12 sources) l-Thyroxine Start: 10-23-2024 take 1 tablet by mouth once daily levothyroxine 50 mcg (0.05 mg) Tab 50 mcg = 1 tab(s), Oral, Daily, # 90 tab(s), Refills(s) 0, [id number] 165, cm, 10/18/24 16:04:00 EST, Height/Length Dosing, 69.6, kg, 10/18/24 16:04:00 EST, Weight Dosing Start Date: 10/23/24 Status: Ordered Start: 10-23-2024 take 1 tablet by francisco once daily levothyroxine (Synthroid, Levoxyl) 50 MCG tablet See Instructions, TAKE 1 TABLET BY MOUTH EVERY DAY, # 90 tab(s), Refills(s) 0, Pharmacy: [facility] [id number], 165, cm, 12/06/24 14:44:00 EST, Height/Length Dosing, 73.1, kg, 12/06/24 14:44:00 EST, Weight Dosing 10/23/2024 Active Start: 09-29-2024 take 1 tablet by francisco th once daily levothyroxine 50 mcg (0.05 mg) Tab 50 mcg = 1 tab(s), Oral, Daily, # 60 tab(s), Refills(s) 0, [id number], 165, cm, 08/08/24 10:51:00 EDT, Height/Length Dosing, 70.4, kg, 08/08/24 10:51:00 EDT, Weight Dosing Start Date: 09/29/24 Status: Ordered Start: 04-29-2023 take 1 tablet by francisco th once daily levothyroxine 75 mcg (0.075 mg) Tab 75 mcg = 1 tab(s), Oral, Daily, # 30 tab(s), Refills(s) 5, [id number], 165.1, cm, 04/16/23 9:48:00 EDT, Height/Length Dosing, 78.6, kg, 04/16/23 9:48:00 EDT, Weight Dosing Start Date: 04/29/23 Status: Ordered take 1 tablet by [facility] once daily in the morning Levothyroxine Sodium 125 MCG 1 tablet on an empty stomach in the morning Orally Once a day Active take 1 tablet by [facility] once daily in the morning Levothyroxine Sodium 125 MCG 1 tablet on an empty stomach in the morning Orally Once a day Active liothyronine sodium 0.005 mg oral tablet (5 sources) l-Triiodothyronine Start: 05-03-2024 End: 04-28-2025 take 1 tablet by mouth once daily liothyronine 5 mcg Tab 5 mcg = 1 tab(s), Oral, Daily, X 90 day(s), # 90 tab(s), Refills(s) 3, [id number], 165, cm, 03/30/24 14:41:00 EDT, Height/Length Dosing, 75, kg, 03/30/24 14:41:00 EDT, Weight Dosing Start Date: 05/03/24 Stop Date: 04/28/25 Status: Ordered Start: 04-05-2023 take 1 tablet by [facility] once daily liothyronine 5 mcg Tab 5 mcg = 1 tab(s), Oral, Daily, # 90 tab(s), Refills(s) 0, [id number] Start Date: 04/05/23 Status: Ordered montelukast 5 mg chewable tablet (2 sources) Leukotriene Receptor Antagonist take 2 tablets by mouth every twenty-four hours Singulair 5 MG 2 tablets in the evening Orally Once a day Active nystatin [id number] unt/ml oral suspension (1 source) Polyene Antifungal Start: 08-22-20 24 take [id number] [IU] by mouth every six hours nystatin 100,000 units/mL Oral Susp 500,000 unit(s) = 5 mL, Oral, q6hr, retain in mouth as long as possible before swallowing, # 200 mL, Refills(s) 0, Pharmacy: [facility]/pharmacy #[id number], 165, cm, 08/08/24 10:51:00 EDT, Height/Length Dosing, 70.4, kg, 08/08/24 10:51:00 EDT, Weight Dosing Start Date: 08/22/24 Status: Ordered ondansetron 4 mg disintegrating oral tablet (2 sources) Serotonin-3 Receptor Antagonist Start: 02-02-20 take 1 tablet by mouth every six hours as needed for nausea ondansetron 4 mg Dis Tab 4 mg = 1 tab(s), Oral, q6hr, PRN Nausea/Vomiting, # 10 tab(s), Refills(s) 1, Pharmacy: [facility]/pharmacy #[id number], 165, cm, 02/02/24 8:30:00 EST, Height/Length Dosing, 75.1, kg, 02/02/24 8:30:00 EST, Weight Dosing Start Date: 02/02/24 Status: Ordered pantoprazole 40 mg delayed release oral tablet (4 sources) Proton Pump Inhibitor Start: 12-08-19 End: 12-02-19 take 1 tablet by mouth once daily Protonix 40 mg Tab-DR 40 mg = 1 tab(s), Oral, Daily, X 90 day(s), # 90 tab(s), Refills(s) 3, Pharmacy: [facility]/pharmacy #[id number], 165, cm, 12/08/23 8:32:00 EST, Height/Length Dosing, 78.5, kg, 12/08/23 8:32:00 EST, Weight Dosing Start Date: 12/08/23 Stop Date: 12/02/24 Status: Ordered Start: 07-05-2023 take 1 tablet by francisco once daily Protonix 40 mg Tab-DR 40 mg = 1 tab(s), Oral, Daily, # 90 tab(s), Refills(s) 3, Pharmacy: [facility]/pharmacy #[id number], 165.1, cm, 05/18/23 8:32:00 EDT, Height/Length Dosing, 80.9, kg, 05/18/23 8:32:00 EDT, Weight Dosing Start Date: 07/05/23 Status: Ordered Start: 04-16-2023 take 1 tablet by francisco once daily Protonix 40 mg Tab-DR 40 mg = 1 tab(s), Oral, Daily, # 30 tab(s), Refills(s) 2, Pharmacy: [facility]/pharmacy #[id number], 165.1, cm, 04/16/23 9:48:00 EDT, Height/Length Dosing, 78.6, kg, 04/16/23 9:48:00 EDT, Weight Dosing Start Date: 04/16/23 Status: Ordered semaglutide (1 source) Start: 02-02-2024 inject 1.2 mg by subcutaneous injection every week semaglutide 1.2 mg, SubCutaneous, qWeek, through [employer], # 4 EA, Refills(s) 2 Start Date: 02/02/24 Status: Ordered semaglutide (1 source) Start: 06-21-2024 semaglutide se maglutide, 1.8 mg, SubCutaneous, q7day, 2 mL, 2, v2 Ratings, Compound, 165, cm, 03/30/24 14:41:00 EDT, Height/Length Dosing, 75, kg, 03/30/24 14:41:00 EDT, Weight Dosing Start Date: 06/21/24 Status: Ordered Completed/Discontinued Medications Medication Drug Class(es) Dates Sig (Normalized) Sig (Original) Albuterol (Eqv-Ventolin HFA) 90 mcg/inh inhalation aerosol (5 sources) Start: 08-08-2024 take 8.5 g by inhalation every four hours Albuterol (Eqv-Ventolin HFA) 90 mcg/inh inhalation aerosol 180 mcg, 2 puff(s), Inhalation, q4hr, 8.5 gm, Refill(s) 3, [facility]/pharmacy #[id number], 165, cm, 08/08/24 10:51:00 EDT, Height/Length Dosing, 70.4, kg, 08/08/24 10:51:00 EDT, Weight Dosing Start Date: 08/08/24 Status: Ordered Start: 04-16-2023 take 2 puff(s) by in halation every four hours Albuterol (Eqv-Ventolin HFA) 90 mcg/inh inhalation aerosol 2 puff(s), Inhalation, q4hr, Refill(s) 0 Start Date: 04/16/23 Status: Ordered fluconazole 150 mg oral tablet (1 source) Azole Antifungal Start: 03-30-2024 take 4 tablets by mouth once Diflucan 150 mg Tab 150 mg = 1 tab(s), Oral, Once, take 1 tab on day 1 and one tab on day 4, # 2 tab(s), Refills(s) 1, Pharmacy: [facility]/pharmacy #[id number], 165, cm, 03/30/24 14:41:00 EDT, Height/Length Dosing, 75, kg, 03/30/24 14:41:00 EDT, Weight Dosing Start Date: 03/30/24 Status: Ordered triamcinolone acetonide 40 mg/ml injectable suspension (3 sources) Corticosteroid Start: 02-22-2023 Kenalog-40 05 Dec, 2023 40 mg Start: 12-23-2021 Kenalog -40 mg Nov, 40 mg Problems Active Problems Problem Classification Problem Date Documented Da te Episodic/Chronic Abdominal pain (9 sources) Abdominal pain; Translations: [Pain in female pelvis] 05-18-2023 Episodic Administrative/social admission (2 sources) Patient encounter status; Translations: [Person consulting for explanation of examination or test findings] 06-19-2025 Episodic Asthma (5 sources) Asthma 04-16-2023 Chronic Esophageal disorders (5 sources) Gastroesophageal reflux disease 04-16-2023 Chronic Genitourinary symptoms and ill-defined conditions (2 sources) Dysuria 10-18-2024 Episodic Menopausal disorders (4 sources) Postmenopausal bleeding; Translations: [Postmenopausal bleeding] 03-14-2025 Chronic Mycoses (3 sources) Candidiasis, unspecified; Translations: [Candidiasis of vagina] Onset: 1 03-30-2024 Episodic Nonmalignant breast conditions (1 source) Diffuse cystic mastopathy of left breast; Translations: [DIFFUSE CYSTIC MASTOPATHY LT BREAST] Onset: 1 Chronic Other connective tissue disease (4 sources) Unspecified rotator cuff tear or rupture of right shoulder, not specified as traumatic; Translations: [Tear of right rotator cuff, unspecified tear extent, unspecified whether traumatic] Onset: 2 Resolved: 2 Episodic Other connective tissue disease (1 source) Disorder of rotator cuff; Translations: [Unspecified rotator cuff tear or rupture of right shoulder, not specified as traumatic] Episodic Other connective tissue disease (1 source) Bicipital tendinitis, right shoulder Episodic Other female genital disorders (2 sources) Abnormal uterine bleeding; Translations: [Abnormal uterine and vaginal bleeding, unspecified] 03-14-2025 Chronic Other female genital disorders (2 sources) Mass of uterine adnexa; Translations: [Other specified conditions associated with female genital organs and menstrual cycle] 06-19-2025 Episodic Other gastrointestinal disorders (2 sources) Abdominal bloating; Translations: [Abdominal distension (gaseous)] 03-14-2025 Episodic Other lower respiratory disease (2 sources) Cough 08-08-2024 Episodic Other lower respiratory disease (2 sources) Dyspnea 08-08-2024 Episodic Other lower respiratory disease (2 sources) Wheezing 08-08-2024 Episodic Other non-traumatic joint disorders (6 sources) Pain in right shoulder; Translations: [PAIN IN RIGHT SHOULDER] Onset: 2 Resolved: 2 Episodic Other nutritional; endocrine; and metabolic disorders (5 sources) Overweight in adulthood with body mass index of 25 or more but less than 30 10-12-2023 Episodic Other nutritional; endocrine; and metabolic disorders (1 source) Body mass index 25-29 - overweight 12-06-2024 Episodic Other skin disorders (1 source) Wrinkled skin; Translations: [Other specified disorders of the skin and subcutaneous tissue] 07-24-2025 Episodic Other upper respiratory disease (5 sources) Allergic rhinitis 04-16-2023 Chronic Residual codes; unclassified (2 sources) History of endometrial ablation; Translations: [Other specified postprocedural states] 03-14-2025 Episodic Thyroid disorders (9 sources) Hypothyroidism, unspecified; Translations: [Hypothyroidism] Onset: 1 Chronic Unclassified (12 sources) Patient encounter status 05-18-2023 Unclassified (1 source) Pain in right shoulder; Translations: [Pain in right shoulder] Onset: 4 Unclassified (1 source) Unspecified injury of right lower leg, initial encounter; Translations: [Unspecified injury of right lower leg, initial encounter] Onset: 3 Unclassified (1 source) Non-smoker 12-06-2024 Urinary tract infections (2 sources) Urinary tract infectious disease 10-18-2024 Episodic Past or Other Problems Problem Classification Problem Date Documented Da te Episodic/Chronic Other and unspecified benign neoplasm (1 source) Benign neoplasm of right breast; Translations: [BENIGN NEOPLASM OF RIGHT BREAST] Onset: 09-04-2021 Episodic Other screening for suspected conditions (not mental disorders or infectious disease) (9 sources) Other abnormal and inconclusive findings on diagnostic imaging of breast; Translations: [Encounter for screening mammogram for malignant neoplasm of breast] Onset: 08-13-2021 Episodic Varicose veins of lower extremity (4 sources) Asymptomatic varicose veins of bilateral lower extremities; Translations: [ASYMPTOMATIC VARICOS VNS HARI LW EXT] Onset: 02-05-2022 Episodic Results Test Name Value Interpretation Reference Range Facility Family Medicine Office/Clini c Noteon 05-15-2025 Family Medicine Office/Clinic Note Family Medicine Office/Clinic Note Chief Complaint The patient complains of a gum infection following a popcorn kernel lodged in the gum. HPI Staff Susan is a 54 year old female presenting with possible gum infection Onset: History of Present Illness 54 year old patient of Gaston Lopez CNP presents today for evaluation of gum infection . Approximately a week ago, the patient had a popcorn kernel lodged in her upper gum, which she attempted to remove by flossing, leading to irritation and swelling. The patient reports pain extending to her glands and difficulty accessing dental care promptly (has an appointment in 2 weeks), prompting her visit for antibiotic treatment. The patient denies any medication allergies but reports seasonal allergies. She is concerned about the potential for the infection to spread systemically if untreated. Review of Systems PHQ Score Initial Depression Screen Score: 0 SCORE - Oral: Reports gum swelling and pain extending to glands. - Allergic/Immunologic : Denies medication allergies, reports seasonal allergies. Physical Exam Vitals & Measurements T: 36.5 ???C(Oral) HR: 87(Peripheral) RR: 18 BP: 130/92 SpO2: 98% HT: 65 in HT: 165.0 cm WT: 77.0 kg WT: 169.756 lb BMI: 28.28 General: alert, no acute distress ENMT:Lest upper gum around the 6th and 7th molars erythematous and edematous Cardiovascular: regular rate and rhythm, normal peripheral perfusion Respiratory: Lungs CTA, respirations non labored Extremities: no deformity, no trauma Neurological: oriented x 4, LOC appropriate for age speech normal Assessment/Plan 1. Blister of gum with infection (S00.522A: Blister (nonthermal) of oral cavity, initial encounter) - Initiate erythromycin therapy as per standard treatment protocol for gum infections. - Advise follow-up with dentist for further evaluation and management. Ordered: erythromycin, 333 mg = 1 tab(s), Oral, q8hr, X 14 day(s), # 42 tab(s), Refills(s) 0, Pharmacy: [facility]/pharmacy #[id number], 165, cm, 02/16/25 11:19:00 EDT, Height/Length Dosing, 77.9, kg, 02/16/25 11:19:00 EDT, Weight Dosing Follow-up No qualifying data [...] qualifying data Procedure/Surgical History Ablation, Colonoscopy, EGD (esophagogastroduode noscopy) and closure of duodenal fistula, Surgery. Medications Albuterol (Eqv-Ventolin HFA) 90 mcg/inh inhalation aerosol, 180 mcg= 2 puff(s), Inhalation, q4hr, 3 refills budesonide 90 mcg/inh inhalation powder, 1 inh, Inhalation, BID, 11 refills cetirizine 10 mg Tab, 10 mg= 1 tab(s), Oral, Daily, 3 refills cyclobenzaprine 10 mg Tab, See Instructions erythromycin 333 mg Oral EC Tab, 333 mg= 1 tab(s), Oral, q8hr levothyroxine 50 mcg (0.05 mg) Tab, See Instructions, 3 refills ondansetron 4 mg Dis Tab, 4 mg= 1 tab(s), Oral, q6hr, PRN, 1 refills Pantoprazole [address] Tab, 40 mg= 1 tab(s), Oral, Daily, 1 refills Allergies No Known Medication Allergies Social History Alcohol Never., 10/18/2024 Substance Abuse Never., 10/18/2024 Tobacco Never (less than 100 in lifetime) Tobacco Use:. Never Smokeless Tobacco Use:. Household tobacco concerns: No. Yes, 05/15/2025 Family History Diabetes mellitus type 1: Mother. Immunizations Vaccine Date Status Comments influenza virus vaccine, inactivated 09/14/2024 Recorded zoster vaccine, inactivated 07/27/2024 Recorded zoster vaccine, inactivated 02/23/2024 Recorded diphtheria/pertussis , acel/tetanus adult 02/05/2024 Recorded influenza virus vaccine, inactivated 08/28/2023 Recorded influenza virus vaccine, inactivated 09/26/2022 Recorded SARS-CoV-2 (COVID-19) [id number] 09/26/2022 Recorded influenza virus vaccine, inactivated 09/15/2021 Recorded SARS-CoV-2 (COVID-19) mRNA BNT-162b2 vax 09/15/2021 Recorded 2023-04-16: [id number] SARS-CoV-2 (COVID-19) mRNA BNT-162b2 vax 03/04/2021 Recorded SARS-CoV-2 (COVID-19) mRNA BNT-162b2 vax 02/10/2021 Recorded influenza virus vaccine, inactivated 09/06/2020 Recorded influenza virus vaccine, inactivated 09/20/2019 Recorded influenza virus vaccine, inactivated 08/13/2018 Recorded influenza virus vaccine, inactivated 10/13/2017 Recorded influenza virus vaccine, inactivated 09/20/2017 Recorded diphtheria/pertussis , acel/tetanus adult 09/08/2016 Recorded influenza virus vaccine, inactivated 09/08/2016 Recorded influenza virus vaccine, inactivated 10/08/2015 Recorded Patient requested different ATB as the one prescribed is too expensive. [facility] Comment on above: Result Comment: Elec tronically Signed By: OMEGA GARZA, TITI Liang\.br\Date and Time Signed: 05/15/25 12:25 EDT Family Medicine Office/Clini c Noteon 02-16-2025 Family Medicine Office/Clinic Note Family Medicine Office/Clinic Note HPI Staff Susan is a 54 [...] getting worse. HIDA scan order sent to [facility] per pt request 2. Gall stones [...] qualifying data Procedure/Surgical History Ablation, Colonoscopy, EGD (esophagogastroduode noscopy) and closure of duodenal fistula, Surgery. Medications [...] 07/27/2024 Recorded zoster vaccine, inactivated 02/23/2024 Recorded diphtheria/pertussis , acel/tetanus adult 02/05/2024 Recorded influenza virus vaccine, inactivated 08/28/2023 Recorded influenza virus vaccine, inactivated 09/26/2022 Recorded SARS-CoV-2 (COVID-19) [id number] 09/26/2022 Recorded influenza virus vaccine, inactivated 09/15/2021 Recorded SARS-CoV-2 (COVID-19) mRNA BNT-162b2 vax 09/15/2021 Recorded 2023-04-16: TPV50 SARS-CoV-2 (COVID-19) mRNA BNT-162b2 vax 03/04/2021 Recorded SARS-CoV-2 (COVID-19) mRNA BNT-162b2 vax 02/10/2021 Recorded influenza virus vaccine, inactivated 09/06/2020 Recorded influenza virus vaccine, inactivated 09/20/2019 Recorded influenza virus vaccine, inactivated 08/13/2018 Recorded influenza virus vaccine, inactivated 10/13/2017 Recorded influenza virus vaccine, inactivated 09/20/2017 Recorded diphtheria/pertussis , acel/tetanus adult 09/08/2016 Recorded influenza virus vaccine, inactivated 09/08/2016 Recorded influenza virus vaccine, inactivated 10/08/2015 Recorded Normal [facility] Comment on above: Result Comment: Elec tronically Signed By: Jazmyn De La Torre\.br\Date and Time Signed: 02/16/25 12:43 EDT Reminderson 12-11-2024 Reminders Reminders - From: Jazmyn De La Torre To: [facility] - Clinical; Sent: 12/08/2024 09:09:52 EST Show [...] 37.2 % (14.0 - 50.0) 12/06/2024 15:06 [facility] Auto 6.6 % (4.0 - 14.0) 12/06/2024 15:06 Eos Auto ((H)) 9.0 % (0.0 - 8.0) 12/06/2024 15:06 Basophil Auto 0.8 % (0.0 - 2.0) 12/06/2024 15:06 Neutro Absolute 2.2 E9/L (2.0 - 7.5) 12/06/2024 15:06 Lymph Absolute 1.7 E9/L (1.0 - 4.0) 12/06/2024 15:06 [facility] Absolute 0.3 E9/L (0.2 - 1.0) 12/06/2024 [...] 15:06 TSH 0.75 mcIU/mL (0.34 - 5.60) - From: Halima Ruiz M.A. ([facility] - Clinical) To: Jazmyn De La Torre; Sent: 12/11/2024 10:29:12 EST Show up: 12/11/2024 10:28:00 EST Subject: RE: Ambulatory Reminder patient notified Normal [facility] Amylaseon 12-07-2024 Amylase [Catalytic activity/Vol] 84 U/L Normal 25-157 [facility] [facility] Comment on above: Performed By: #### 2 [id number] #### [facility] [address] [place] [address] CBC w/ Auto Diffon 5 Basophils/100 WBC (Bld) 0.8 % Normal 0.0-2.0 [facility] Comment on above: Performed By: #### 2 [id number] #### [facility] [address] [place] [address] Basophils/Leukocytes Auto (Bld) [Pure # fraction] 0.0 E9/L Normal 0.0-0.2 [facility] Comment on above: Performed By: #### 2 [id number] #### [facility] [address] [place] [address] Eosinophils (Bld) [#/Vol] 0.4 E9/L Normal 0.0-0.5 [facility] Comment on above: Performed By: #### 2 [id number] #### [facility] [address] [place] [address] Eosinophils/100 WBC (Bld) 9.0 % High 0.0-8.0 [facility] Comment on above: Performed By: #### 2 [id number] #### [facility] [address] [place] [address] Erythrocyte distribution width (RBC) [Ratio] 14.5 % High 10.9-14.2 [facility] Comment on above: Performed By: #### 2 [id number] #### [facility] [address] [place] [address] Hematocrit (Bld) [Volume fraction] 39.8 % Normal 34.0-46.0 [facility] Comment on above: Performed By: #### 2 [id number] #### [facility] [address] [place] [address] Hemoglobin (Bld) [Mass/Vol] 14.0 g/dL Normal 12.0-16.0 [facility] Comment on above: Performed By: #### 2 [id number] #### [facility] [address] [place] [address] Lymphocytes (Bld) [#/Vol] 1.7 E9/L Normal 1.0-4.0 [facility] Comment on above: Performed By: #### 2 [id number] #### [facility] [address] [place] [address] Lymphocytes/100 WBC (Bld) 37.2 % Normal 14.0-50.0 [facility] Comment on above: Performed By: #### 2 854393 #### [facility] [address] [place] [address] MCH (RBC) [Entitic mass] 36.3 pg High 27.0-34.0 [facility] Comment on above: Performed By: #### 2 823627 #### [facility] [address] [place] [address] MCHC (RBC) [Mass/Vol] 35.2 g/dL Normal 31.4-36.0 [facility] Comment on above: Performed By: #### 2 [id number] #### [facility] [address] [place] [address] MCV (RBC) [Entitic vol] 103.0 fL High 80.0-100.0 [facility] Comment on above: Performed By: #### 2 554430 #### [facility] [address] [place] [address] Monocytes (Bld) [#/Vol] 0.3 E9/L Normal 0.2-1.0 [facility] Comment on above: Performed By: #### 2 599229 #### [facility] [address] [place] [address] Neutrophils (Bld) [#/Vol] 2.2 E9/L Normal 2.0-7.5 [facility] Comment on above: Performed By: #### 2 572215 #### [facility] [address] [place] [address] Neutrophils/100 WBC (Bld) 46.4 % Normal 36.0-75.0 [facility] Comment on above: Performed By: #### 2 541616 #### [facility] [address] [place] [address] Platelet 251.0 E9/L Normal 150.0-500.0 [facility] Comment on above: Performed By: #### 2 [id number] #### [facility] [address] [place] [address] Platelet mean volume (Bld) [Entitic vol] 8.5 fL Normal 6.4-10.8 [facility] Comment on above: Performed By: #### 2 169735 #### [facility] [address] [place] [address] RBC (Bld) [#/Vol] 3.9 E12/L Low 4.3-5.9 [facility] Comment on above: Performed By: #### 2 172275 #### [facility] [address] [place] [address] WBC corrected for nucl RBC Auto (Bld) [#/Vol] 4.7 E9/L Normal 4.0-11.0 [facility] Comment on above: Performed By: #### 2 711554 #### [facility] [address] [place] [address] CMPon 12-07-2024 Albumin [Mass/Vol] 4.2 g/dL Normal 3.3-5.0 [facility] Comment on above: Performed By: #### 2 [id number] #### [facility] [address] [place] [address] Albumin/Globulin (S) [Mass conc ratio] 1.6 Normal 1.1-2.2 [facility] Comment on above: Performed By: #### 2 543500 #### [facility] [address] [place] [address] ALP [Catalytic activity/Vol] 46 Int._Unit/L Normal 21-98 [facility] Comment on above: Performed By: #### 2 383935 #### [facility] [address] [place] [address] ALT No additional P-5'-P [Catalytic activity/Vol] 12 Int._Unit/L Normal 6-46 [facility] Comment on above: Performed By: #### 2 [id number] #### [facility] [address] [place] [address] Anion gap [Moles/Vol] 13 mmol/L Normal 6-16 [facility] Comment on above: Performed By: #### 2 818474 #### [facility] [address] [place] [address] AST [Catalytic activity/Vol] 20 Int._Unit/L Normal 5-43 [facility] Comment on above: Performed By: #### 2 [id number] #### [facility] [address] [place] [address] Bilirubin [Mass/Vol] 0.8 mg/dL Normal 0.0-1.1 [facility] Comment on above: Performed By: #### 2 153170 #### [facility] [address] [place] [address] Calcium [Mass/Vol] 9.1 mg/dL Normal 8.9-11.1 [facility] Comment on above: Performed By: #### 2 315926 #### [facility] [address] [place] [address] Chloride [Moles/Vol] 106 mmol/L Normal 101-111 [facility] Comment on above: Performed By: #### 2 135187 #### [facility] [address] [place] [address] CO2 [Moles/Vol] 24 mmol/L Normal 21-31 [facility] Comment on above: Performed By: #### 2 494445 #### [facility] [address] [place] [address] Creatinine [Mass/Vol] 0.7 mg/dL Normal 0.5-1.3 [facility] Comment on above: Performed By: #### 2 950893 #### [facility] [address] [place] [address] Globulin (S) [Mass/Vol] 2.6 g/dL Normal 1.4-4.0 [facility] Comment on above: Performed By: #### 2 680866 #### [facility] [address] [place] [address] Glucose [Mass/Vol] 108 mg/dL Normal 55-199 [facility] Comment on above: Performed By: #### 2 442682 #### [facility] [address] [place] [address] Potassium [Moles/Vol] 3.8 mmol/L Normal 3.5-5.3 [facility] Comment on above: Performed By: #### 2 305814 #### [facility] [address] [place] [address] Protein [Mass/Vol] 6.8 g/dL Normal 6.0-7.8 [facility] Comment on above: Performed By: #### 2 555227 #### [facility] [address] [place] [address] Sodium [Moles/Vol] 139 mmol/L Normal 135-145 [facility] Comment on above: Performed By: #### 2 196287 #### [facility] [address] [place] [address] Urea nitrogen [Mass/Vol] 11 mg/dL Normal 5-21 [facility] Comment on above: Performed By: #### 2 [id number] #### [facility] [address] [place] [address] Urea nitrogen/Creatinine [Mass ratio] 16 No Units Normal 10-20 [facility] Comment on above: Performed By: #### 2 [id number] #### [facility] [address] [place] [address] Lipase Levelon 12-07-2024 Lipase [Catalytic activity/Vol] 27 U/L Normal 13-58 [facility] Comment on above: Performed By: #### 2 [id number] #### [facility] [address] [place] [address] TSHon 12-07-2024 TSH Qn 0.75 m[IU]/L Normal 0.34-5.60 [facility] Comment on above: Performed By: #### 2 448543 #### [facility] [address] [place] [address] eGFRon 12-07-2024 eGFR 101 mL/min/1.73 m2 Normal >=59 [facility] Comment on above: Performed By: #### 1 [id number] #### [facility] [address] [place] [address] Ambulatory Visit Summaryon 0 12-06-2024 Ambulatory Visit Summary Ambulatory Visit Summary SUSAN FRANCIS :1970 Visit Date:12/06/2024 Ambulatory Visit Instructions Your [...] Dis Tab) Procedures Performed Ablation, Colonoscopy, EGD (esophagogastroduode noscopy) and closure of duodenal fistula, Surgery. Discharge [...] you for choosing us for your care. [facility] Family Medicine Office/Clini c Noteon 12-06-2024 Family Medicine Office/Clinic Note Family Medicine Office/Clinic Note Chief Complaint Possible UTI HPI Staff [...] Urnls Dip Stick Auto w/o Microscopy POC 64019 2. Abdominal pain (R10.9: Unspecified abdominal pain) [...] 4, # 2 tab(s), Refills(s) 1, Pharmacy: [facility]/pharmacy #[id number], 165, cm, 03/30/24 14:41:00 EDT, Height/Length Dosing, 75, kg, 03/30/24 14:41:00 EDT, Weight Dosing nystatin, 500,000 unit(s) = 5 mL, Oral, q6hr, retain in mouth as long as possible before swallowing, # 200 mL, Refills(s) 0, Pharmacy: [facility]/pharmacy #[id number], 165, cm, 08/08/24 10:51:00 EDT, Height/Length [...] qualifying data Procedure/Surgical History Ablation, Colonoscopy, EGD (esophagogastroduode noscopy) and closure of duodenal fistula, Surgery. Medications [...] 07/27/2024 Recorded zoster vaccine, inactivated 02/23/2024 Recorded diphtheria/pertussis , acel/tetanus adult 02/05/2024 Recorded influenza virus vaccine, inactivated 08/28/2023 Recorded (more content not included)... Normal [facility] Comment on above: Result Comment: Elec tronically Signed By: Jazmyn De La Torre\.br\Date and Time Signed: 12/06/24 15:09 EST Reminderson 10-23-2024 Reminders Reminders - From: Jazmyn De La Torre To: B - Clinical; Sent: 10/23/2024 09:31:39 EST Show up: 10/23/2024 09:32:00 EST Subject: Ambulatory Reminder Due Date/Time: 10/24/2024 09:31:00 EST urine culture negative Results: Date Result Type Ind Result Name 10/18/2024 16:14 EST MBO NEG Urine Culture Susan advised of results Normal [facility] Reminders Reminders - From: Jazmyn De La Torre To: B - Clinical; Sent: 10/23/2024 09:31:39 EST Show up: 10/23/2024 09:32:00 EST Subject: Ambulatory Reminder Due Date/Time: 10/24/2024 09:31:00 EST urine culture negative Results: Date Result Type Ind Result Name 10/18/2024 16:14 EST MBO NEG Urine Culture Normal [facility] C Urineon 10-21-2024 Bacteria identified Cx Nom (U) Microbiology PROCEDURE: Urine Culture [R1] SOURCE: U CleanCatch BODY SITE: COLLECTED DATE/TIME: 10/18/2024 16:14 EST RECEIVED DATE/TIME: 10/19/2024 17:59 EST START DATE/TIME: 10/19/2024 17:59 EST FREE TEXT SOURCE: Jazmyn De La Torre Jodi L FINAL REPORTS Final Report [] Verified Date/Time: 10/21/2024 10:50 EST 2,000 cfu/ml Mixed skin contaminants Performing Locations R1: This test was performed at: [facility], [address] [place] [address], [id number]- , , Normal [facility] Comment on above: Performed By: #### 2 [id number] #### [facility] [address] [place] [address] Reminderson 10-20-2024 Reminders Reminders - From: Jazmyn De La Torre To: B - Clinical; Sent: 10/20/2024 14:26:39 EST Show up: 10/20/2024 14:27:00 EST Subject: Ambulatory Reminder Due Date/Time: 10/21/2024 14:26:00 EST urine culture was negative. symptoms are not caused by UTI Results: Date Result Type Ind Result Name 10/18/2024 MBO NEG Urine Culture Pt has been notified. [facility] Medicine Office/Clini c Noteon 10-18-2024 Family Medicine Office/Clinic Note Family Medicine Office/Clinic Note HPI Staff Susan is a 54 [...] Urnls Dip Stick Auto w/o Microscopy POC 63185 2. Non-smoker (Z78.9: Other specified health status) [...] qualifying data Procedure/Surgical History Ablation, Colonoscopy, EGD (esophagogastroduode noscopy) and closure of duodenal fistula, Surgery. Medications [...] 3 refills nystatin 100,000 units/mL Oral Susp, [id number] unit(s)= 5 mL, Oral, q6hr ondansetron 4 [...] 07/27/2024 Recorded zoster vaccine, inactivated 02/23/2024 Recorded diphtheria/pertussis , acel/tetanus adult 02/05/2024 Recorded influenza virus vaccine, inactivated 08/28/2023 Recorded influenza virus vaccine, inactivated 09/26/2022 Recorded SARS-CoV-2 (COVID-19) [id number] 09/26/2022 Recorded influenza virus vaccine, inactivated 09/15/2021 Recorded SARS-CoV-2 (COVID-19) mRNA BNT-162b2 vax 09/15/2021 Recorded 2023-04-16: [id number] SARS-CoV-2 (COVID-19) mRNA BNT-162b2 vax 03/04/2021 Recorded SARS-CoV-2 (COVID-19) mRNA BNT-162b2 vax 02/10/2021 Recorded influenza virus vaccine, inactivated 09/06/2020 Recorded influenza virus vaccine, inactivated 09/20/2019 Recorded influenza virus vaccine, inactivated 08/13/2018 Recorded influenza virus vaccine, inactivated 10/13/2017 Recorded influenza virus vaccine, inactivated 09/20/2017 Recorded diphtheria/pertussis , acel/tetanus adult 09/08/2016 Recorded influenza virus vaccine, inactivated 09/08/2016 Recorded influenza virus vaccine, inactivated 10/08/2015 Recorded Lab Results Ambulatory Point of Care Results Bilirubin Urine Dipstick: Negative (10/18/24 16:08:00) Blood Urine Dipstick: Negative (10/18/24 16:08:00) Glucose Urine Dipstick: Negative (10/18/24 16:08:00) Ketones Urine Dipstick: Negative (10/18/24 16:08:00) Leukocytes Urine Dipstick: Negative (10/18/24 16:08:0 (more content not included)... Normal [facility] Comment on above: Result Comment: Elec tronically Signed By: Jamzyn De La Torre\.br\Date and Time Signed: 10/18/24 17:03 EST Ambulatory Visit Summaryon 0 08-08-2024 Ambulatory Visit Summary Ambulatory Visit Summary SUSAN FRANCIS :1970 Visit Date:08/08/2024 Ambulatory Visit Instructions Your Diagnosis Shortness of breath Wheezing Cough BMI 25.0-25.9,adult Non-smoker Your Care Team Attending Physician - Jazmyn De La Torre Primary Care Physician - Jazmyn De aL Torre This Is Your Medications List Non-Formulary [...] subcutaneous solution) Procedures Performed Ablation, Colonoscopy, EGD (esophagogastroduode noscopy) and closure of duodenal fistula, Surgery. Discharge Vitals Temperature (Temporal Artery) 36.2 ?C Heart Rate (Peripheral) 78 Respiratory Rate 18 Blood Pressure 116/78 Height 165.0 cm Height 65 in Weight 70.4 kg Weight 154.88 lb BMI 25.86 What to do next Scheduled Follow-Up Appointments Wednesday 8:40 AM EST With: Jazmyn De La Torre Where: [place] [id number]- Medications What How Much When Why Instructions New albuterol (Albuterol (Eqv-Ventolin HFA) 90 mcg/ inh inhalation aerosol) 2 Puffs Inhalation Every 4 hours Refills: 3 Pickup [address] [facility]/pharmacy #[id number] New azithromycin (azithromycin 250 mg Tab) 1 Packets By Mouth As Directed Duration: 5 Days as directed on package labeling Pickup at [facility]/pharmacy #[id number] New benzonatate (benzonatate 200 mg oral capsule) 1 Capsules By Mouth 3 times a day Shortness of breath Wheezing Cough BMI 25.0-25.9,adult Non-smoker Duration: 7 Days Pickup at [facility]/pharmacy #6102 New budesonide (budesonide 90 mcg/ inh inhalation powder) 1 Inhalation Inhalation 2 times a day Refills: 11 Pickup [address] [facility]/pharmacy #[id number] Unchanged cetirizine (cetirizine 10 mg Tab) 1 Tablets By Mouth Every day Unchanged cyclobenzaprine (cyclobenzaprine 10 mg Tab) 1 Tablets By Mouth 3 times a day as needed for for spasm Pickup at [facility]/pharmacy #[id number] Unchanged fluconazole (Diflucan 150 mg Tab) [...] 1.2mg through [facility] Pharmacy Information [facility]/pharmacy #[id number]: [address], [place] [id number] [phone] Allergies No Known Medication Allergies Problems Ongoing [...] you for choosing us for your care. [facility] Family Medicine Office/Clini c Noteon 08-08-2024 Family Medicine Office/Clinic Note Family Medicine Office/Clinic Note HPI Staff Pt presents today due [...] day(s), # 21 cap(s), Refills(s) 0, Pharmacy: [facility]/pharmacy #[id number], 165, cm, 08/08/24 10:51:00 EDT, Height/Length Dosing, 70.4, kg, 08/08/24 10:51:00 EDT, Weight Dosing 2. Wheezing (R06.2: Wheezing) see above Ordered: benzonatate, 200 mg = 1 cap(s), Oral, TID, X 7 day(s), # 21 cap(s), Refills(s) 0, Pharmacy: [facility]/pharmacy #[id number], 165, cm, 08/08/24 10:51:00 EDT, Height/Length Dosing, 70.4, kg, 08/08/24 10:51:00 EDT, Weight Dosing 3. Cough (R05.9: Cough, unspecified) pt is coughing. all day but worse at night. unable to sleep. z pack and tessalon pearls sent in also sent in inhalers Ordered: benzonatate, 200 mg = 1 cap(s), Oral, TID, X 7 day(s), # 21 cap(s), Refills(s) 0, Pharmacy: [facility]/pharmacy #[id number], 165, cm, 08/08/24 10:51:00 EDT, Height/Length Dosing, 70.4, kg, 08/08/24 10:51:00 EDT, Weight Dosing 4. BMI 25.0-25.9,adult (Z68.25: Body mass index [BMI] 25.0-25.9, adult) BMI education given Ordered: benzonatate, 200 mg = 1 cap(s), Oral, TID, X 7 day(s), # 21 cap(s), Refills(s) 0, [id number] 165, cm, 08/08/24 10:51:00 EDT, Height/Length Dosing, 70.4, kg, 08/08/24 10:51:00 EDT, Weight Dosing 5. Non-smoker (Z78.9: Other specified health status) continue not smoking Ordered: benzonatate, 200 mg = 1 cap(s), Oral, TID, X 7 day(s), # 21 cap(s), Refills(s) 0, Pharmacy: [facility]/pharmacy #[id number], 165, cm, 08/08/24 10:51:00 EDT, Height/Length Dosing, 70.4, kg, 08/08/24 10:51:00 EDT, Weight Dosing Orders: albuterol, 180 mcg, 2 puff(s), Inhalation, q4hr, 8.5 gm, Refill(s) 3, [facility]/pharmacy #[id number], 165, cm, 08/08/24 10:51:00 EDT, Height/Length Dosing, 70.4, kg, 08/08/24 10:51:00 EDT, Weight Dosing albuterol, 180 mcg, 2 puff(s), Inhalation, q4hr, 8.5 gm, Refill(s) 3, [facility]/pharmacy #[id number], 165, cm, 03/30/24 14:41:00 EDT, Height/Length Dosing, 75, kg, 03/30/24 14:41:00 EDT, Weight Dosing azithromycin, = 1 packet(s), Oral, As Directed, as directed on package labeling, X 5 day(s), # 6 tab(s), Refills(s) 0, Pharmacy: [facility]/pharmacy #[id number], 165, cm, 08/08/24 10:51:00 EDT, Height/Length Dosing, 70.4, kg, 08/08/24 10:51:00 EDT, Weight Dosing budesonide, 1 inh, Inhalation, BID, 1 EA, Refill(s) 11, [facility]/pharmacy #[id number], 165, cm, 08/08/24 10:51:00 EDT, Height/Length Dosing, 70.4, kg, 08/08/24 10:51:00 EDT, Weight Dosing cyclobenzaprine, 10 mg = 1 tab(s), Oral, TID, PRN for spasm, # 30 tab(s), Refills(s) 0, Pharmacy: [facility]/pharmacy #[id number], 165, cm, 08/08/24 10:51:00 EDT, Height/Length [...] qualifying data Procedure/Surgical History Ablation, Colonoscopy, EGD (esophagogastroduode noscopy) and closure of duodenal fistula, Surgery. Medications Albuterol (Eqv-Ventolin HFA) 90 mcg/inh inhalation aerosol, 180 mcg= 2 puff(s), Inhalation, q4hr, 3 refills azithromycin 250 mg Tab, 1 packet(s), Oral, As Directed benzonatate 200 mg oral capsule, 200 mg= 1 cap(s), Oral, TID budesonide 90 mcg/inh inhalation powder, 1 inh, Inhalation, BID, 11 refills cetirizine 10 mg Tab, 10 mg= 1 tab(s), Oral, D (more content not included)... Normal [facility] Comment on above: Result Comment: Elec tronically Signed By: Jazmyn De La Torre\.br\Date and Time Signed: 08/08/24 11:09 EDT Retail - Clinical Noteon Retail - Clinical Note [id number] #[id number] Normal [facility] Ambulatory Visit Summaryon 0 03-30-2024 Ambulatory Visit Summary SUSAN FRANCIS :1970 Visit Date:03/30/2024 Ambulatory Visit Instructions Your Diagnosis Encounter for weight management Your Care Team Attending Physician - Jazmyn De La Torre Primary Care Physician - Jazmyn De La Torre This Is Your Medications List albuterol (Albuterol (Eqv-Ventolin HFA) 90 mcg/inh inhalation aerosol) cetirizine (cetirizine 10 mg Tab) levothyroxine (levothyroxine 75 mcg (0.075 mg) Tab) liothyronine (liothyronine 5 mcg Tab) ondansetron (ondansetron 4 mg Dis Tab) pantoprazole (Protonix 40 mg Tab-DR) semaglutide semaglutide (Ozempic 2 mg/3 mL (0.25 mg or 0.5 mg dose) subcutaneous solution) Procedures Performed Ablation, Colonoscopy, EGD (esophagogastroduode noscopy) and closure of duodenal fistula, Surgery. Discharge Vitals Heart Rate (Peripheral) 83 Blood Pressure 130/80 Height 165 cm Height 65 in Weight 75 kg Weight 165 lb BMI 27.55 What to do next Scheduled Follow-Up Appointments Wednesday 8:20 AM EDT With: Jazmyn De La Torre Where: [facility] Normal [facility] Family Medicine Office/Clini c Noteon 03-30-2024 Family Medicine Office/Clinic Note Chief Complaint medication concerns HPI Staff Pt in office today for medication check, pt states she's feeling more hungry and has topped losing weight, pt would like to increase Ozempic dosage. History of Present Illness pt presents for weight management Review of Systems PHQ Score Initial Depression Screen Score: 0 SCORE Physical Exam Vitals & Measurements HR: 83(Peripheral) BP: 130/80 SpO2: 98% HT: 65 in HT: 165 cm WT: 75 kg WT: 165 lb BMI: 27.55 General: alert, no acute distress ENMT: oral mucosa moist, no pharyngeal erythema or exudate Cardiovascular: regular rate and rhythm, normal peripheral perfusion Respiratory: Lungs CTA, respirations non labored Extremities: no deformity, no trauma Neurological: oriented x 4, LOC appropriate for age, CN II-XII intact, motor strength equal & normal bilaterally, speech normal Assessment/Plan 1. Encounter for weight management (Z76.89: Persons encountering health services in other specified circumstances) pt presents today for weight management. feels like she is always hungry. will increase dose of ozempic to 1.8 through [facility]. RTC 3 omnths Ordered: fluconazole, 150 mg = 1 tab(s), Oral, Once, take 1 tab on day 1 and one tab on day 4, # 2 tab(s), Refills(s) 1, Pharmacy: [facility]/pharmacy #[id number], 165, cm, 03/30/24 14:41:00 EDT, Height/Length Dosing, 75, kg, 03/30/24 14:41:00 EDT, Weight Dosing 2. Vaginal yeast infection (B37.31: Acute candidiasis of vulva and vagina) diflucan ordered Ordered: fluconazole, 150 mg = 1 tab(s), Oral, Once, take 1 tab on day 1 and one tab on day 4, # 2 tab(s), Refills(s) 1, Pharmacy: [facility]/pharmacy #[id number], 165, cm, 03/30/24 14:41:00 EDT, Height/Length Dosing, 75, kg, 03/30/24 14:41:00 EDT, Weight Dosing 3. Adult BMI 27.0-27.9 kg/sq m (Z68.27: Body mass index [BMI] 27.0-27.9, adult) Follow-up No qualifying data available Problem List/Past Medical History Ongoing Abdominal pain Adult BMI 27.0-27.9 kg/sq m Allergic rhinitis Asthma BMI 29.0-29.9,adult Breast cancer screening by mammogram Encounter for weight management GERD (gastroesophageal reflux disease) Hypothyroidism Vaginal yeast infection Well woman exam Historical No qualifying data Procedure/Surgical History Ablation, Colonoscopy, EGD (esophagogastroduode noscopy) and closure of duodenal fistula, Surgery. Medications Albuterol (Eqv-Ventolin HFA) 90 mcg/inh inhalation aerosol, 180 mcg= 2 puff(s), Inhalation, q4hr, 3 refills cetirizine 10 mg Tab, 10 mg= 1 tab(s), Oral, Daily, 3 refills Diflucan 150 mg Tab, 150 mg= 1 [...] 1 tab(s), Oral, Daily, 3 refills semaglutide, 1.2 mg, SubCutaneous, qWeek Allergies No Known Medication Allergies Social History Tobacco Never (less than 100 in lifetime) Tobacco Use:. Never Smokeless Tobacco Use:. Household tobacco concerns: No., 02/02/2024 Never (less than 100 in lifetime) Tobacco Use:., 10/12/2023 Family History Diabetes mellitus type 1: Mother. Immunizations Vaccine Date Status Comments influenza virus vaccine, inactivated 09/26/2022 Recorded SARS-CoV-2 (COVID-19) [id number] 09/26/2022 Recorded influenza virus vaccine, inactivated 09/15/2021 Recorded SARS-CoV-2 (COVID-19) mRNA BNT-162b2 vax 09/15/2021 Recorded 2023-04-16: TPV50 SARS-CoV-2 (COVID-19) mRNA BNT-162b2 vax 03/04/2021 Recorded SARS-CoV-2 (COVID-19) mRNA BNT-162b2 vax 02/10/2021 Recorded influenza virus vaccine, inactivated 09/06/2020 Recorded influenza virus vaccine, inactivated 09/20/2019 Recorded influenza virus vaccine, inactivated 08/13/2018 Recorded influenza virus vaccine, inactivated 10/13/2017 Recorded influenza virus vaccine, inactivated 09/20/2017 Recorded diphtheria/pertussis , acel/tetanus adult 09/08/2016 Recorded influenza virus vaccine, inactivated 09/08/2016 Recorded influenza virus vaccine, inactivated 10/08/2015 Recorded Normal [facility] Comment on above: Result Comment: Elec tronically Signed By: Jazmyn De La Torre\.br\Date and Time Signed: 03/30/24 15:17 EDT Ambulatory Visit Summaryon 0 02-02-2024 Ambulatory Visit Summary SUSAN FRANCIS :1970 Visit Date:02/02/2024 Ambulatory Visit Instructions Your Diagnosis Encounter for weight management BMI 27.0-27.9,adult Non-smoker Your Care Team Attending Physician - Jazmyn De La Torre Primary Care Physician - Jazmyn De La Torre This Is Your Medications List albuterol (Albuterol (Eqv-Ventolin HFA) 90 mcg/inh inhalation aerosol) cetirizine (cetirizine 10 mg Tab) levothyroxine (levothyroxine 75 mcg (0.075 mg) Tab) liothyronine (liothyronine 5 mcg Tab) ondansetron (ondansetron 4 mg Dis Tab) pantoprazole (Protonix 40 mg Tab-DR) semaglutide (Ozempic 2 mg/3 mL (0.25 mg or 0.5 mg dose) subcutaneous solution) Procedures Performed Ablation, Colonoscopy, EGD (esophagogastroduode noscopy) and closure of duodenal fistula, Surgery. Discharge Vitals Heart Rate (Peripheral) 78 Respiratory Rate 18 Blood Pressure 110/72 Height 165.0 cm Height 65 in Weight 75.11 kg Weight 165.242 lb BMI 27.59 What to do next Scheduled Follow-Up Appointments Wednesday 8:20 AM EDT With: Jazmyn De La Torre Where: [facility] Friona Normal [facility] Family Medicine Office/Clini c Noteon 03-06-2024 Family Medicine Office/Clinic Note HPI Staff Susan is a 53 year old female presenting for 1 month follow up Weight management: Started on semaglutide 09/10/23 Sleeping well:Yes, 6-8 hours Chest pain:No Tremors:No Headaches:No Heart fluttering:No Blurred Vision:No Beginning weight: 177.98 Ibs Previous weight: 170.06Ibs Today's weight: 165 Questions/Concerns: pt needs refill on Levothyroxine , pt states this time taking Ozempic having abdominal pain took some Dulcolax and had bowel movement and felt better instantly. History of Present Illness pt presents today for weight management Review of Systems PHQ Score Initial Depression Screen Score: 0 SCORE ROS - Provider Constitutional: no fever, no chills, no sweats, no fatigue Respiratory: no shortness of breath, no cough, no orthopnea, no wheezing. Cardiovascular: no chest pain, no palpitations, no edema. Neurologic: no headache, no dizziness, no numbness, no weakness. Physical Exam Vitals & Measurements HR: 78(Peripheral) RR: 18 BP: 110/72 SpO2: 98% HT: 65 in HT: 165.0 cm WT: 75.11 kg WT: 165.242 lb BMI: 27.59 General: alert, no acute distress ENMT: oral mucosa moist, no pharyngeal erythema or exudate Cardiovascular: regular rate and rhythm, normal peripheral perfusion Respiratory: Lungs CTA, respirations non labored Extremities: no deformity, no trauma Neurological: oriented x 4, LOC appropriate for age, CN II-XII intact, motor strength equal & normal bilaterally, speech normal Assessment/Plan 1. Encounter for weight management (Z76.89: Persons encountering health services in other specified circumstances) pt presents today for weight management. pt is down another 5 pounds. had some stomach pain with constipation but after taking dulcolax pain went away. will keep does the same. RTC 3 months 2. BMI 27.0-27.9,adult (Z68.27: Body mass index [BMI] 27.0-27.9, adult) BMI education complete 3. Non-smoker (Z78.9: Other specified health status) continue not smoking Orders: levothyroxine, 75 mcg = 1 tab(s), Oral, Daily, # 90 tab(s), Refills(s) 1, [id number] 165, cm, 02/02/24 8:30:00 EST, Height/Length Dosing, 75.1, kg, 02/02/24 8:30:00 EST, Weight Dosing levothyroxine, 75 mcg = 1 tab(s), Oral, Daily, # 30 tab(s), Refills(s) 5, [id number], 165.1, cm, 04/16/23 9:48:00 EDT, Height/Length Dosing, 78.6, kg, 04/16/23 9:48:00 EDT, Weight Dosing ondansetron, 4 mg = 1 tab(s), Oral, q6hr, PRN Nausea/Vomiting, # 10 tab(s), Refills(s) 0, [id number], 165.1, cm, 09/14/23 10:30:00 EDT, Height/Length Dosing, 81.7, kg, 09/14/23 10:30:00 EDT, Weight Dosing ondansetron, 4 mg = 1 tab(s), Oral, q6hr, PRN Nausea/Vomiting, # 10 tab(s), Refills(s) 1, Pharmacy: [facility] #[id number], 165, cm, 02/02/24 8:30:00 EST, Height/Length Dosing, 75.1, kg, 02/02/24 8:30:00 EST, Weight Dosing Follow-up No qualifying data available Problem List/Past Medical History Ongoing Abdominal pain Allergic rhinitis Asthma BMI 29.0-29.9,adult Breast cancer screening by mammogram Encounter for weight management GERD (gastroesophageal reflux disease) Hypothyroidism Well woman exam Historical No qualifying data Procedure/Surgical History Ablation, Colonoscopy, EGD (esophagogastroduode noscopy) and closure of duodenal fistula, Surgery. Medications Albuterol (Eqv-Ventolin HFA) 90 mcg/inh inhalation aerosol, 180 mcg= 2 puff(s), Inhalation, q4hr, 3 refills cetirizine 10 mg Tab, 10 mg= 1 tab(s), Oral, Daily, 3 refills levothyroxine 75 mcg (0.075 mg) Tab, [...] 1 tab(s), Oral, Daily, 3 refills semaglutide, 1.2 mg, SubCutaneous, qWeek Allergies No Known Medication Allergies Social History Tobacco Never (less than 100 in lifetime) Tobacco Use:. Never Smokeless Tobacco Use:. Household tobacco concerns: No., 02/02/2024 Never (less than 100 in lifetime) Tobacco Use:., 10/12/2023 Family History Diabetes mellitus type 1: Mother. Immunizations Vaccine Date Status Comments influenza virus vaccine, inactivated 09/26/2022 Recorded SARS-CoV-2 (COVID-19) [id number] 09/26/2022 Recorded influenza virus vaccine, inactivated 09/15/2021 Recorded SARS-CoV-2 (COVID-19) mRNA BNT-162b2 vax 09/15/2021 Recorded 2023-04-16: TPV50 SARS-CoV-2 (COVID-19) mRNA BNT-162b2 vax 03/04/2021 Recorded SARS-CoV-2 (COVID-19) mRNA BNT-162b2 vax 02/10/2021 Recorded influenza virus vaccine, inactivated 09/06/2020 Recorded influenza virus vaccine, inactivated 09/20/2019 Recorded influenza virus vaccine, inactivated 08/13/2018 Recorded influenza virus vaccine, inactivated 10/13/2017 Recorded influenza virus vaccine, inactivated 09/20/2017 Recorded diphtheria/pertussis , acel/te (more content not included)... Normal [facility] Comment on above: Result Comment: Elec tronically Signed By: Jazmyn De La Torre\.br\Date and Time Signed: 02/02/24 08:58 EST Retail - Clinical Noteon Retail - Clinical Note [id number] #[id number] Normal [facility] Family Medicine Office/Clini c Noteon 01-05-2024 Family Medicine Office/Clinic Note HPI Staff Susan is a 53 year old female presenting for 1 month follow up Weight management: Started on Semaglutide 09/10/23 Sleeping well:Yes, 6-8 hours Chest pain:No Tremors:No Headaches:No Heart fluttering:No Blurred Vision:No Beginning weight: 177.98 Ibs Previous weight: 172.7 Ibs Today's weight: 170.06Ibs Questions/Concerns: Has some nausea with the second shot but other than that has felt great. History of Present Illness pt presents today for weight management Review of Systems PHQ Score Initial Depression Screen Score: 0 SCORE ROS - Provider Constitutional: no fever, no chills, no sweats, no fatigue Respiratory: no shortness of breath, no cough, no orthopnea, no wheezing. Cardiovascular: no chest pain, no palpitations, no edema. Neurologic: no headache, no dizziness, no numbness, no weakness. Physical Exam Vitals & Measurements HR: 68(Peripheral) RR: 18 BP: 124/84 SpO2: 99% HT: 65 in HT: 165 cm WT: 77.3 kg WT: 170.06 lb BMI: 28.39 General: alert, no acute distress ENMT: oral mucosa moist, no pharyngeal erythema or exudate Cardiovascular: regular rate and rhythm, normal peripheral perfusion Respiratory: Lungs CTA, respirations non labored Extremities: no deformity, no trauma Neurological: oriented x 4, LOC appropriate for age, CN II-XII intact, motor strength equal & normal bilaterally, speech normal Assessment/Plan 1. Encounter for weight management (Z76.89: Persons encountering health services in other specified circumstances) pt presents for weight management. down 2 more pounds. will send refills for 1.2mg dose to [facility]. all questions answered. pt leaving for [facility] sent to pharmacy. rtc 4 weeks Ordered: ciprofloxacin, 500 mg = 1 tab(s), Oral, q12hr, X 7 day(s), # 14 tab(s), Refills(s) 0, Pharmacy: [facility] #[id number], 165, cm, 01/05/24 8:36:00 EST, Height/Length Dosing, 77.3, kg, 01/05/24 8:36:00 EST, Weight Dosing 2. BMI 28.0-28.9,adult (Z68.28: Body mass index [BMI] 28.0-28.9, adult) bmi education complete Ordered: ciprofloxacin, 500 mg = 1 tab(s), Oral, q12hr, X 7 day(s), # 14 tab(s), Refills(s) 0, Pharmacy: [facility]/pharmacy #[id number], 165, cm, 01/05/24 8:36:00 EST, Height/Length Dosing, 77.3, kg, 01/05/24 8:36:00 EST, Weight Dosing 3. Non-smoker (Z78.9: Other specified health status) continue not smoking Ordered: ciprofloxacin, 500 mg = 1 tab(s), Oral, q12hr, X 7 day(s), # 14 tab(s), Refills(s) 0, Pharmacy: [facility]/pharmacy #[id number], 165, cm, 01/05/24 8:36:00 EST, Height/Length Dosing, 77.3, kg, 01/05/24 8:36:00 EST, Weight Dosing Follow-up No qualifying data available Problem List/Past Medical History Ongoing Abdominal pain Allergic rhinitis Asthma BMI 29.0-29.9,adult Breast cancer screening by mammogram Encounter for weight management GERD (gastroesophageal reflux disease) Hypothyroidism Well woman exam Historical No qualifying data Procedure/Surgical History Ablation, Colonoscopy, EGD (esophagogastroduode noscopy) and closure of duodenal fistula, Surgery. Medications Albuterol (Eqv-Ventolin HFA) 90 mcg/inh inhalation aerosol, 180 mcg= 2 puff(s), Inhalation, q4hr, 3 refills cetirizine 10 mg Tab, 10 mg= 1 tab(s), Oral, Daily, 3 refills Cipro 500 mg Tab, 500 mg= 1 tab(s), Oral, q12hr levothyroxine 75 mcg (0.075 mg) Tab, 75 mcg= 1 tab(s), Oral, Daily, 5 refills liothyronine 5 mcg Tab, 5 mcg= 1 tab(s), Oral, Daily, 3 refills ondansetron 4 mg Dis Tab, 4 mg= 1 tab(s), Oral, q6hr, PRN Ozempic 2 mg/3 mL (0.25 mg or 0.5 mg dose) subcutaneous solution, 1.2 mg, SubCutaneous, qWeek Protonix 40 mg Tab-DR, 40 mg= 1 tab(s), Oral, Daily, 3 refills Allergies No Known Medication Allergies Social History Tobacco Never (less than 100 in lifetime) Tobacco Use:. Never Smokeless Tobacco Use:. Household tobacco concerns: No., 01/05/2024 Never (less than 100 in lifetime) Tobacco Use:., 10/12/2023 Family History Diabetes mellitus type 1: Mother. Immunizations Vaccine Date Status Comments influenza virus vaccine, inactivated 09/26/2022 Recorded SARS-CoV-2 (COVID-19) [id number] 09/26/2022 Recorded influenza virus vaccine, inactivated 09/15/2021 Recorded SARS-CoV-2 (COVID-19) mRNA BNT-162b2 vax 09/15/2021 Recorded 2023-04-16: TPV50 SARS-CoV-2 (COVID-19) mRNA BNT-162b2 vax 03/04/2021 Recorded SARS-CoV-2 (COVID-19) mRNA BNT-162b2 vax 02/10/2021 Recorded influenza virus vaccine, inactivated 09/06/2020 Recorded influenza virus vaccine, inactivated 09/20/2019 Recorded influenza virus vaccine, inactivated 08/13/2018 Recorded influenza virus vaccine, inactivated 10/13/2017 Recorded influenza virus vaccine, inactivated 09/20/2017 Recorded diphtheria/pertussis , acel/tetanus adult 09/08/2016 Recorded influenza virus vaccine, inactivated 09/08/2016 Recorded influenza virus vaccine, inactivated 10/08/2015 Recorded Normal [facility] Comment on above: Result Comment: Elec tronically Signed By: Jazmyn De La Torre\.br\Date and Time Signed: 01/05/24 08:58 EST XR shoulder RT min 2V*on XR shoulder RT min 2V* [facility] Main [place] [id number] XRay Report Signed Patient: Susan Francis MR#: [id number] : 1970 Acct:[id number] Age/Sex: 53 / F ADM Date: 01/03/24 Loc: [facility] Room: Type: REG CLI Attending Dr: Rocael Faulkner DO Copies to: Rocael Faulkner DO Ordering Provider: Rocael Faulkner DO Date of Service: 01/03/24 XR/XR shoulder RT min 2V*: Acute pain of left shoulder 4 views RIGHT shoulder plain film HISTORY: RIGHT shoulder pain for 2 months. COMPARISON: 12/23/21 ACUTE FINDINGS: None DEGENERATIVE CHANGE: Similar mild degenerative changes. SOFT TISSUE FINDINGS: Unremarkable JOINT EFFUSION: None POSTOP CHANGES: None BONY MINERALIZATION: Adequate XR/XR shoulder RT min 2V* IMPRESSION: Similar mild degeneration. Impression dictated by: Ed Carbajal M.D.01/03/2024 3:45 PM Dictation Location: [place] [address] Transcribed By: [facility] 01/03/24 1545 Dictated By: Ed Carbajal DO 01/03/24 1544 Signed By: 01/03/24 1545 [facility] XR shoulder RT min 2V* [facility] [employer] Other XR shoulder RT min 2V* [facility] [employer] Other XR shoulder RT min 2V* [address] [place] [address] [employer] Other XR shoulder RT min 2V* [place] [address] [employer] Other XR shoulder RT min 2V* XRay Report [employer] Other XR shoulder RT min 2V* Signed [employer] Other XR shoulder RT min 2V* Patient: Susan Francis MR#: [id number] [employer] Other XR shoulder RT min 2V* : 1970 Acct:[id number] [employer] Other XR shoulder RT min 2V* Age/Sex: 53 / F ADM Date: 01/03/24 [employer] Other XR shoulder RT min 2V* Loc: [facility] Room: Type: REG CLI [employer] Other XR shoulder RT min 2V* Attending Dr: Rocael Faulkner DO [employer] Other XR shoulder RT min 2V* Copies to: Rocael Faulkner, DO [employer] Other XR shoulder RT min 2V* Ordering Provider: Rocael Faulkner DO [employer] Other XR shoulder RT min 2V* Date of Service: 01/03/24 [employer] Other XR shoulder RT min 2V* XR/XR shoulder RT min 2V*: Acute pain of left shoulder [employer] Other XR shoulder RT min 2V* 4 views RIGHT shoulder plain film [employer] Other XR shoulder RT min 2V* HISTORY: RIGHT shoulder pain for 2 months. [employer] Other XR shoulder RT min 2V* COMPARISON: 12/23/21 [employer] Other XR shoulder RT min 2V* ACUTE FINDINGS: None [employer] Other XR shoulder RT min 2V* DEGENERATIVE CHANGE: Similar mild degenerative changes. [employer] Other XR shoulder RT min 2V* SOFT TISSUE FINDINGS: Unremarkable [employer] Other XR shoulder RT min 2V* JOINT EFFUSION: None [employer] Other XR shoulder RT min 2V* POSTOP CHANGES: None [employer] Other XR shoulder RT min 2V* BONY MINERALIZATION: Adequate [employer] Other XR shoulder RT min 2V* XR/XR shoulder RT min 2V* [employer] Other XR shoulder RT min 2V* IMPRESSION: Similar mild degeneration. [employer] Other XR shoulder RT min 2V* Impression dictated by: Ed Carbajal M.D.01/03/2024 3:45 PM [employer] Other XR shoulder RT min 2V* Dictation Location: [facility] [employer] Other XR shoulder RT min 2V* Transcribed By: QUINTON 01/03/24 154 [employer] Other XR shoulder RT min 2V* Dictated By: Ed Carbajal DO 01/03/24 1546 [employer] Other XR shoulder RT min 2V* Signed By: [employer] Other XR shoulder RT min 2V* 01/03/24 3199 [employer] Other Ambulatory Visit Summaryon 0 12-08-2023 Ambulatory Visit Summary SUSAN FRANCIS :1970 Visit Date:12/08/2023 Ambulatory Visit Instructions Your Diagnosis Encounter for weight management BMI 28.0-28.9,adult Non-smoker Over weight Your Care Team Attending Physician - Jazmyn De La Torre Primary Care Physician - Jazmyn De La Torre This Is Your Medications List albuterol (Albuterol (Eqv-Ventolin HFA) 90 mcg/inh inhalation aerosol) cetirizine (cetirizine 10 mg Tab) levothyroxine (levothyroxine 75 mcg (0.075 mg) Tab) liothyronine (liothyronine 5 mcg Tab) ondansetron (ondansetron 4 mg Dis Tab) pantoprazole (Protonix 40 mg Tab-DR) semaglutide (Ozempic 2 mg/3 mL (0.25 mg or 0.5 mg dose) subcutaneous solution) Procedures Performed Ablation, Colonoscopy, EGD (esophagogastroduode noscopy) and closure of duodenal fistula, Surgery. Discharge Vitals Heart Rate (Peripheral) 58 Respiratory Rate 18 Blood Pressure 122/80 Height 165 cm Height 65 in Weight 78.5 kg Weight 172.7 lb BMI 28.83 What to do next Scheduled Follow-Up Appointments Wednesday 8:20 AM EST With: Jazmyn De La Torre [facility] Visit Summary SUSAN FRANCIS :1970 Visit Date:12/08/2023 Ambulatory Visit Instructions Your Diagnosis Encounter for weight management BMI 28.0-28.9,adult Non-smoker Your Care Team Attending Physician - Jazmyn De La Torre Primary Care Physician - Jazmyn De La Torre This Is Your Medications List albuterol (Albuterol (Eqv-Ventolin HFA) 90 mcg/inh inhalation aerosol) cetirizine (cetirizine 10 mg Tab) levothyroxine (levothyroxine 75 mcg (0.075 mg) Tab) liothyronine (liothyronine 5 mcg Tab) ondansetron (ondansetron 4 mg Dis Tab) pantoprazole (Protonix 40 mg Tab-DR) semaglutide (Ozempic 2 mg/3 mL (0.25 mg or 0.5 mg dose) subcutaneous solution) Procedures Performed Ablation, Colonoscopy, EGD (esophagogastroduode noscopy) and closure of duodenal fistula, Surgery. Discharge Vitals Heart Rate (Peripheral) 58 Respiratory Rate 18 Blood Pressure 122/80 Height 165 cm Height 65 in Weight 78.5 kg Weight 172.7 lb BMI 28.83 What to do next Scheduled Follow-Up Appointments Wednesday 8:20 AM EST With: Jazmyn De La Torre Where: [facility] Ambulatory Visit Summary SUSAN FRANCIS :1970 Visit Date:12/08/2023 Ambulatory Visit Instructions Your Diagnosis Encounter for weight management BMI 28.0-28.9,adult Non-smoker Your Care Team Attending Physician - Jazmyn De La Torre Primary Care Physician - Jazmyn De La Torre This Is Your Medications List albuterol (Albuterol (Eqv-Ventolin HFA) 90 mcg/inh inhalation aerosol) cetirizine (cetirizine 10 mg Tab) levothyroxine (levothyroxine 75 mcg (0.075 mg) Tab) liothyronine (liothyronine 5 mcg Tab) ondansetron (ondansetron 4 mg Dis Tab) pantoprazole (Protonix 40 mg Tab-DR) semaglutide (Ozempic 2 mg/3 mL (0.25 mg or 0.5 mg dose) subcutaneous solution) Procedures Performed Ablation, Colonoscopy, EGD (esophagogastroduode noscopy) and closure of duodenal fistula, Surgery. Discharge Vitals Heart Rate (Peripheral) 58 Respiratory Rate 18 Blood Pressure 122/80 Height 165 cm Height 65 in Weight 78.5 kg Weight 172.7 lb BMI 28.83 What to do next Scheduled Follow-Up Appointments Wednesday 8:20 AM EST With: Jazmyn De La Torre Where: [facility] [place] Normal [facility] Medicine Office/Clini c Noteon 12-08-2023 Family Medicine Office/Clinic Note HPI Staff Susan is a 53 year old female presenting for 1 month follow up Weight management: Started semaglutide on 09/10/23 Sleeping well:Yes, 6-8 hours Chest pain:No Tremors:No Headaches:No Heart fluttering:No Blurred Vision:No Beginning weight: 80.9kg/177.98Ibs Previous weight: 79.0Kg/173.8Ibs Today's weight: 78.5kg/ 172.7Ibs Questions/Concerns: Pt does have some nausea with some constipation. pt would like refill on pantoprazole. Pt would like to increase the dose. History of Present Illness pt presents today for weight management Review of Systems PHQ Score Initial Depression Screen Score: 0 SCORE ROS - Provider Constitutional: no fever, no chills, no sweats, no fatigue Respiratory: no shortness of breath, no cough, no orthopnea, no wheezing. Cardiovascular: no chest pain, no palpitations, no edema. Neurologic: no headache, no dizziness, no numbness, no weakness. Physical Exam Vitals & Measurements HR: 58(Peripheral) RR: 18 BP: 122/80 SpO2: 99% HT: 65 in HT: 165 cm WT: 78.5 kg WT: 172.7 lb BMI: 28.83 General: alert, no acute distress ENMT: oral mucosa moist, no pharyngeal erythema or exudate Cardiovascular: regular rate and rhythm, normal peripheral perfusion Respiratory: Lungs CTA, respirations non labored Extremities: no deformity, no trauma Neurological: oriented x 4, LOC appropriate for age, CN II-XII intact, motor strength equal & normal bilaterally, speech normal Assessment/Plan 1. Encounter for weight management (Z76.89: Persons encountering health services in other specified circumstances) pt presents today for weight management. is down 1 pound. did not eat well the last couple of week with holidays. will increase ozempic to 1.2mg through [facility]. all questions answered. RTC 4 weeks 2. BMI 28.0-28.9,adult (Z68.28: Body mass index [BMI] 28.0-28.9, adult) BMI education complete Ordered: pantoprazole, 40 mg = 1 tab(s), Oral, Daily, X 90 day(s), # 90 tab(s), Refills(s) 3, [id number], 165, cm, 12/08/23 8:32:00 EST, Height/Length Dosing, 78.5, kg, 12/08/23 8:32:00 EST, Weight Dosing pantoprazole, 40 mg = 1 tab(s), Oral, Daily, # 90 tab(s), Refills(s) 3, [id number], 165.1, cm, 05/18/23 8:32:00 EDT, Height/Length Dosing, 80.9, kg, 05/18/23 8:32:00 EDT, Weight Dosing 3. Non-smoker (Z78.9: Other specified health status) continue not smoking Over weight (E66.3: Overweight) pt watching food intake and exercising Ordered: pantoprazole, 40 mg = 1 tab(s), Oral, Daily, X 90 day(s), # 90 tab(s), Refills(s) 3, Pharmacy: [facility]/pharmacy #[id number], 165, cm, 12/08/23 8:32:00 EST, Height/Length Dosing, 78.5, kg, 12/08/23 8:32:00 EST, Weight Dosing pantoprazole, 40 mg = 1 tab(s), Oral, Daily, # 90 tab(s), Refills(s) 3, Pharmacy: [facility]/pharmacy #[id number], 165.1, cm, 05/18/23 8:32:00 EDT, Height/Length Dosing, 80.9, kg, 05/18/23 8:32:00 EDT, Weight Dosing Follow-up No qualifying data available Patient Education Diet for Metabolic Syndrome Diet for Metabolic Syndrome BMI for Adults Problem List/Past Medical History Ongoing Abdominal pain Allergic rhinitis Asthma BMI 29.0-29.9,adult Breast cancer screening by mammogram Encounter for weight management GERD (gastroesophageal reflux disease) Hypothyroidism Well woman exam Historical No qualifying data Procedure/Surgical History Ablation, Colonoscopy, EGD (esophagogastroduode noscopy) and closure of duodenal fistula, Surgery. Medications Albuterol (Eqv-Ventolin HFA) 90 mcg/inh inhalation aerosol, 180 mcg= 2 puff(s), Inhalation, q4hr, 3 refills cetirizine 10 mg Tab, 10 mg= 1 tab(s), Oral, Daily, 3 refills levothyroxine 75 mcg (0.075 mg) Tab, 75 mcg= 1 tab(s), Oral, Daily, 5 refills liothyronine 5 mcg Tab, 5 mcg= 1 tab(s), Oral, Daily, 3 refills ondansetron 4 mg Dis Tab, 4 mg= 1 tab(s), Oral, q6hr, PRN Ozempic 2 mg/3 mL (0.25 mg or 0.5 mg dose) subcutaneous solution, 1.2 mg, SubCutaneous, qWeek Protonix 40 mg Tab-DR, 40 mg= 1 tab(s), Oral, Daily, 3 refills Allergies No Known Medication Allergies Social History Tobacco Never (less than 100 in lifetime) Tobacco Use:. Never Smokeless Tobacco Use:. Household tobacco concerns: No., 12/08/2023 Never (less than 100 in lifetime) Tobacco Use:., 10/12/2023 Family History Diabetes mellitus type 1: Mother. Immunizations Vaccine Date Status Comments influenza virus vaccine, inactivated 09/26/2022 Recorded SARS-CoV-2 (COVID-19) [id number] 09/26/2022 Recorded influenza virus vaccine, inactivated 09/15/2021 Recorded SARS-CoV-2 (COVID-19) mRNA BNT-162b2 vax 09/15/2021 Recorded 2023-04-16: TPV50 SARS-CoV-2 (COVID-19) mRNA BNT-162b2 vax 03/04/2021 Recorded SARS-CoV-2 (COVID-19) mRNA BNT-162b2 vax 02/10/2021 Recorded influenza virus vaccine, inactivated 09/06/2020 Recorded influenza virus vaccine, inactivated 09/20/2019 Recorded influenza virus vaccine, inactivated 08/13/2018 Recorded influenza virus vaccine, inactivate (more content not included)... Normal [facility] Comment on above: Result Comment: Elec tronically Signed By: Jazmyn De La Torre\.br\Date and Time Signed: 12/08/23 09:18 EST Patient Educationon 12-08-19 Patient Education Diet for Metabolic Syndrome Metabolic syndrome is a disorder that includes three or more of the following conditions: ? Abdominal obesity, as seen in a large waist measurement. ? Too much sugar (glucose) in your blood. ? High blood pressure (hypertension). ? Jlawhd-vqab-icajbf amount of fat (lipids) in your blood. ? Tnzlq-skzb-taihyz level of good cholesterol (HDL). Keeping an active lifestyle and following a healthy diet plan can help you manage your condition. These changes can also help to prevent the development of conditions that are associated with metabolic syndrome, such as diabetes, heart disease, and stroke. Following a heart-healthy diet can help you lower your risk of heart disease and improve metabolic syndrome. A heart-healthy diet includes lean proteins, healthy fats, nuts, and plenty of fruits and vegetables. Along with regular exercise, a healthy diet: ? Helps to improve the way the body uses insulin. ? Helps with weight loss. A common goal for people with this condition is to lose 7?10% or more of their starting weight. ? For example, a person who starts at 300 lb (136 kg) and loses 30 lb (13.6 kg) has lost 10% of his or her starting weight. What are tips for following this plan? Reading food labels Check food labels for the amount of salt (sodium) per serving. Choose foods with less than 5 percent of the Daily Value of sodium. Generally, foods with less than 300 milligrams (mg) of sodium per serving fit into this eating plan. Cooking ? Do not langley foods. Cook foods using healthy methods such as baking, boiling, steaming, grilling, roasting, and broiling. ? Use more herbs and spices to add flavor to your food instead of using butter and salt (sodium). Meal planning ? Consider following a plant-based diet, a Mediterranean diet, or a DASH diet. These diets include lots of vegetables, lean meats or fish, whole grains, fruits, healthy oils and fats, and low amounts of sodium. ? Plan meals with healthy choices for food for daily life. Stock your kitchen with healthy food for meals. ? Try to eat fish 1?2 times a week. ? Choose a variety of fruits, vegetables, and other recommended foods. General information ? Keep track of how many calories you eat and drink. Consuming the right amount of calories will help you achieve a healthy weight. ? Make physical activity and healthy eating part of your lifestyle. ? Consider working with a behavioral counselor to help you achieve your goal of a healthy lifestyle, including diet and exercise. What foods can I eat? Fruits Berries. Apples. Oranges. Peaches. Apricots. Plums. Grapes. [place]. Papaya. Pomegranate. Kiwi. Cherries. Vegetables Lettuce. Spinach. Leafy greens, including kale, chard, jakub greens, and mustard greens. Peas. Beets. Cauliflower. Cabbage. Broccoli. Carrots. Green beans. Tomatoes. Squash. Eggplant. Peppers. Onions. Cucumbers. [place] sprouts. Sweet potatoes. Yams. Beans. Lentils. Grains Stone-ground whole wheat. Pumpernickel bread. Whole-grain bread, crackers, tortillas, cereal, and pasta. Unsweetened oatmeal. Bulgur. Barley. Quinoa. Brown rice or wild rice. Meats and other proteins Seafood and shellfish. Lean meats. Poultry. Tofu. Nuts and seeds. Dairy Low-fat or fat-free dairy products, such as milk, yogurt, and cheese. Fats and oils Avocado. Canola or olive oil. Nuts and nut butters. Seeds. Tahini. Beverages Water. Low-fat milk. Milk alternatives, such as soy milk or almond milk. Seasonings and condiments Ketchup, barbecue sauce, and mayonnaise in moderation. Mustard. Relish. Herbs. The items listed above may not be a complete list of foods and beverages you can eat. Contact a dietitian for more information. What foods should I avoid? Fruits Canned fruits in light or heavy syrup. Vegetables Vegetables with added creams or sauces. Grains Highly processed grains, such as white bread, pasta, muffins, granola bars, pretzels, and crackers. Meats and other proteins Red meat. Precooked or cured meat, such as sausages or meat loaves. Dairy Full-fat milk. Yogurt with added sugars. Fats and oils Saturated fats, such as butter, shortening, and palm oil. Beverages Alcohol. Sweetened drinks, such as iced tea and soda. Other foods Fried foods. Sweets. Salty foods. The items listed above may not be a complete list of foods and beverages you should avoid. Contact a dietitian for more information. Summary ? Metabolic syndrome is a combination of conditions such as abdominal obesity, high blood sugar, high blood pressure, and a higher amount of lipids in the blood. Metabolic syndrome raises your risk of developing heart disease, diabetes, and stroke. ? Following a heart-healthy diet can help you lower your risk of heart disease and improve metabolic syndrome. This diet includes lean proteins, healthy fats, nuts, and plenty of fruits and vegetables. ? Along with regular exercise, follow (more content not included)... Normal [facility] Retail - Clinical Noteon Retail - Clinical Note [id number] 1.00TIFF Normal [facility] CHEMISTRYOrdered By: SYSTEM SYSTEM on 08-18-2023 TSH Qn 0.35 m[IU]/L Normal 0.34 - 5.60 mcIU/mL [facility] CHEMISTRYOrdered By: SYSTEM SYSTEM on 05-18-2023 TSH Qn 0.69 m[IU]/L Normal 0.34 - 5.60 mcIU/mL [facility] Remisol CHEMISTRYOrdered By: SYSTEM SYSTEM on 04-02-2023 Free T4 [Mass/Vol] 1.03 ng/dL Normal 0.58 - 1. 64 ng/dL [facility] Remisol TSH Qn 0.04 m[IU]/L Low 0.34 - 5.60 mcIU/mL [facility]isol XR knee RT 2Von 02-22-2023 XR knee RT 2V [facility] Main [place] [address] [place] [address] XRay Report Signed Patient: Susan Francis MR#: [id number] : 1970 Acct:[id number] Age/Sex: 52 / F ADM Date: 02/22/23 Loc[place] [facility] [place] Room: Type: [facility] Attending Dr: Zulma Flores [employer] Copies to: URIEL Jacob Ordering Provider: URIEL Jacob Date of Service: 02/22/23 XR/XR knee RT 2V: Injury of right knee, initial encounter RIGHT KNEE - 2 views COMPARISON: None CLINICAL DATA: Right knee pain and weakness following episode of instability stepping off the sidewalk 2 days ago. Standing AP and lateral views were obtained. There is no acute fracture or dislocation. There is no disproportionate joint space narrowing. There is minor marginal spurring. There is a potential tiny loose body projecting medial to the tibial spines. There is a small amount of joint fluid. No focal soft tissue swelling is noted. XR/XR knee RT 2V IMPRESSION: MINOR DEGENERATIVE CHANGE. NO ACUTE BONY INJURY. Impression dictated by: Jossie Ribera M.D.02/22/2023 9:12 AM Dictation Location: [place] [address] Transcribed By: [facility] 02/22/23911 Dictated By: Jossie Ribera MD 02/22/2310 Signed By: 02/22/[address] [facility] MAMMO POST BIOPSY BILATERALo n 08-29-2021 MAMMO POST BIOPSY BILATERAL Patient: SUSAN FRANCIS. Exam Date: 08/29/2021 : 1970 Gender:F Ordering : DR NIRALI SEN . Admission #: [id number] Family : Order #: [id number] CLICK HERE TO VIEW EXAM RADIOLOGY REPORT PROCEDURE: MAMMO POST BIOPSY BILATERAL COMPARISON: MG MAMM SCREEN 3D HARI CAD, 08/13/2021. INDICATIONS: Mammographic mass of bilateral breasts BREAST COMPOSITION: FINDINGS: Right: RECOMMENDATIONS: BIOPSY MARKER: A metallic marker has been placed in the targeted location within the upper outer quadrant of the right breast. BREAST FINDINGS: Postprocedural changes. Ultrasound biopsy does not correspond to the mammographic abnormality. Left: BIOPSY MARKER: A metallic marker has been placed in the targeted location within the upper outer quadrant of the left breast. BREAST FINDINGS: Postprocedural changes. Ultrasound biopsy corresponds to the abnormality on mammogram. Dictated by: She Sarkar MD on 08/29/2021 at 10:25 Approved by: She Sarkar MD on 08/29/2021 at 10:26 Normal [facility] US VAC ASST BX BRST LT W CLI Kameron 08-29-2021 US VAC ASST BX BRST LT W CLIP Patient: SUSAN FRANCIS Exam Date: 08/29/2021 : 1970 Gender:F Ordering : DR NIRALI SEN . Admission #: [id number] Family : Order #: [id number] CLICK HERE TO VIEW EXAM This report includes an Addendum and supersedes previous reports for this exam. RADIOLOGY REPORT PROCEDURE: ULTRASOUND BIOPSY VACCUUM ASSISTED LEFT WITH CLIP COMPARISON: None. INDICATIONS: Mammography abnormal DESCRIPTION: After obtaining informed consent, a vacuum assisted ultrasound-guided biopsy was performed in the usual sterile manner. The location of the biopsy was then marked as indicated below. FINDINGS: RECOMMENDATIONS: SPECIMEN #, LOCATION: 4 samples 1:00 a.m. Left breast lesion BIOPSY NEEDLE: 13 gauge Elite (r) vacuum core biopsy needle. MARKERS(S) PLACED: A single metallic marker was placed in the appropriate targeted location. MEDICATION: 3 cubic cm 1% buffered lidocaine without epinephrine superficial, 7 cubic cm Buffered 1% lidocaine with epinephrine administered deep. COMPLICATIONS: None. PATHOLOGY LAB: Pending. CONCLUSION: 1. Uneventful ultrasound-guided left breast biopsy. 2. Pathology results are pending. An addendum to this report will be provided after pathology results are available. Dictated by: She Sarkar MD on 08/29/2021 at 12:07 Approved by: She Sarkar MD on 08/29/2021 at 12:08 ADDENDUM: The pathology report is now available and shows benign findings concordant with the imaging findings. Final diagnosis: No evidence of malignancy. Fibrocystic changes focal microcalcification. Focal adenomatoid changes. Report faxed to Dr. Villanueva office and receipt confirmed with Perri by telephone Dictated by: She Sarkar MD on 09/10/2021 at 14:49 Approved by: She Sarkar MD on 09/10/2021 at 14:51 Normal [facility] US VAC ASST BX BRST RT W CLI Kameron 08-29-2021 US VAC ASST BX BRST RT W CLIP Patient: SUSAN FRANCIS Exam Date: 08/29/2021 : 1970 Gender:F Ordering : DR NIRALI SEN . Admission #: [id number] Family : Order #: [id number] CLICK HERE TO VIEW EXAM This report includes an Addendum and supersedes previous reports for this exam. RADIOLOGY REPORT PROCEDURE: ULTRASOUND BIOPSY VACCUUM ASSISTED RIGHT WITH CLIP COMPARISON: None. INDICATIONS: Mammography abnormal DESCRIPTION: After obtaining informed consent, a vacuum assisted ultrasound-guided biopsy was performed in the usual sterile manner. The location of the biopsy was then marked as indicated below. FINDINGS: RECOMMENDATIONS: SPECIMEN #, LOCATION: 5 samples, 3:00 a.m. Right breast BIOPSY NEEDLE: 13 gauge Elite (r) vacuum core biopsy needle. MARKERS(S) PLACED: A single metallic marker was placed in the appropriate targeted location. MEDICATION: 2 cubic cm 1% buffered lidocaine without epinephrine superficial, 6 cubic cm Buffered 1% lidocaine with epinephrine administered deep. COMPLICATIONS: None. PATHOLOGY LAB: Pending. CONCLUSION: 1. Uneventful ultrasound-guided right breast biopsy. 2. Pathology results are pending. An addendum to this report will be provided after pathology results are available. Dictated by: She Sarkar MD on 08/29/2021 at 12:08 Approved by: She Sarkar MD on 08/29/2021 at 12:09 ADDENDUM: The pathology report is now available and shows benign findings concordant with the imaging findings. Final diagnosis: Fibroadenomatoid changes. No evidence of malignancy Report faxed to Dr. Villanueva office, receipt confirmed with Perri by telephone Dictated by: She Sarkar MD on 09/10/2021 at 14:51 Approved by: She Sarkar MD on 09/10/2021 at 14:52 Normal [facility] US BREAST HARI LIMITEDon 09-2 US BREAST HARI LIMITED Patient: PURNIMA FRANCIS Exam Date: 08/19/2021 : 1970 Gender:F Ordering : DR NIRALI SEN . Admission #: [id number] Family : Order #: [id number] CLICK HERE TO VIEW EXAM RADIOLOGY REPORT PROCEDURE: US BREAST BILATERAL LIMITED COMPARISON: MG MAMM SCREEN 3D HARI CAD, 08/13/2021. INDICATIONS: Mammography abnormal TECHNIQUE: Breast ultrasound was performed, with evaluation focusing only on specific areas of concern. FINDINGS: Ultrasound demonstrates in the right breast at the 3 o'clock position a DIAGNOSTIC CATEGORY 4--SUSPICIOUS FOR MALIGNANCY BUT FINDING DOES NOT EXHIBIT CLASSIC FINDINGS OF BREAST CANCER: heterogeneous oval lesion with lobular margins measuring 1.0 x 0.4 x 0.4 cm in size. In the left breast at the 1 o'clock position is a focal heterogeneous solid and cystic lesion measuring 1.5 x 1.1 x 0.6 cm with peripheral hypervascularity Both of these lesions are indeterminate. Ultrasound-guided core biopsy was recommended to the patient RECOMMENDATIONS: ULTRASOUND-GUIDED CORE BIOPSY: BILATERAL BREASTS PLEASE NOTE: A NORMAL ULTRASOUND EXAMINATION DOES NOT EXCLUDE THE POSSIBILITY OF BREAST CANCER. A CLINICALLY SUSPICIOUS PALPABLE LUMP SHOULD BE BIOPSIED. Dictated by: She Sarkar MD on 08/19/2021 at 15:02 Approved by: She Sarkar MD on 08/19/2021 at 15:09 Normal [facility] MAMM SCREEN 3D HARI CADon 08-13-2021 MG MAMM SCREEN 3D HARI CAD Patient: SUSAN FRANCIS Exam Date: 08/13/2021 : 1970 Gender:F Ordering : DR NIRALI SEN . Admission #: [id number] Family : Order #: [id number] CLICK HERE TO VIEW EXAM RADIOLOGY REPORT PROCEDURE: MAMMOGRAM SCREENING 3D BILATERAL CAD COMPARISON: None. INDICATIONS: Screening mammography Calculator Name NCI Breast Cancer Risk Assessment Tool 5 Year Breast Cancer Risk 1.00% Lifetime Breast Cancer Risk 7.70% Personal Breast Cancer No Personal Ovarian Cancer No Treatments None Family Cancers Father with lung cancer at age 56. LOCATION: [facility] BREAST COMPOSITION: Heterogeneously dense,which may obscure small masses. FINDINGS: DIAGNOSTIC CATEGORY 0--INCOMPLETE ASSESSMENT: NEED ADDITIONAL IMAGING EVALUATION. RIGHT BREAST: 1.5 cm geographic shaped density within the lower-inner quadrant; ultrasound evaluation is recommended. Numerous scattered calcifications. Benign appearing lymph node within the upper-outer quadrant. LEFT BREAST: 1.0 cm partially circumscribed mass within the upper-outer quadrant. Ultrasound evaluation is recommended. Scattered benign calcifications. RECOMMENDATIONS: ULTRASOUND: BILATERAL BREASTS PLEASE NOTE: A NORMAL MAMMOGRAM DOES NOT EXCLUDE THE POSSIBILITY OF BREAST CANCER. A CLINICALLY SUSPICIOUS PALPABLE LUMP SHOULD BE BIOPSIED. Dictated by: Carroll Babcock M.D. on 08/13/2021 at 14:52 Approved by: Carroll Babcock M.D. on 08/13/2021 at 15:01 Normal [facility] CORTISOLon 08-02-2021 Cortisol 9.0 ug/dL Normal [facility] Comment on above: Result Comment: Jesse isol AM 6.2 - 19.4 Cortisol PM 2.3 - 11.9 Performed By: #### C ORTISO #### [facility] [address] [place], [place] [address] Karl Jossie FREE T3on 07-22-2021 FREE T3 2.47 pg/mlL Critically low 2.77-5.27 [facility] Comment on above: Performed By: #### F T3, TSH #### [facility] [address] [place], [place] [address] Karl Jossie FREE T4on 07-22-2021 Free T4 [Mass/Vol] 0.92 ng/dL Normal 0.78-2.19 [facility] Comment on above: Performed By: #### F T4 #### [facility] [address] [place], [place] [address] Karl Jossie GLYCOHEMOGLOBIN A1Con 2020 ADA RECOMMENDATION ADA THERAPEUTIC TARGET 6.0 - 7.0 ACTION SUGGESTED > 7.0 Normal [facility] Comment on above: Performed By: #### F T3, TSH #### [facility] [address] [place] [id number] Karl Jossie Glucose [Mass/Vol] 103 mg/dL Normal [facility] Comment on above: Performed By: #### F T3, TSH #### [facility] [address] [place], [place] [address] Karl Jossie HbA1c (Bld) [Mass fraction] 5.2 % Normal <=6.0 [facility] Comment on above: Performed By: #### F T3, TSH #### [facility] [address] [place], [place] [address] Karl Sethi TSHon 07-22-2021 TSH Qn m[IU]/L Critically low 0.470-4.680 [facility] Comment on above: Performed By: #### F T3, TSH #### [facility] [address] [place] [id number] Karl Sethi TSH RANGE SEE BELOW Normal [facility] Comment on above: Result Comment: <0.3 4 UIU/ml HYPERTHYROID 0.34-5.60 UIU/ml EUTHYROID >5.60 UIU/ml HYPOTHYROID Performed By: #### F T3, TSH #### [facility] [address] [place] [id number] Karl Sethi Vital Signs Date Time Vital Sign Value Performing Clinician Marv marino 06-20-2025 09:20-0400 Body mass index (BMI) [Ratio] 29.01 kg/m2 Kendra Nataprawira DO Work Phone: [facility] 06-20-2025 09:20-0400 Body weight 76.66 kg Kendra Nataprawira DO Work Phone: [facility] 06-20-2025 09:20-0400 Diastolic blood pressure 78 mm[Hg] Kendra Nataprawira DO Work Phone: [facility] 06-20-2025 09:20-0400 Systolic blood pressure 126 mm[Hg] Kendra Nataprawira DO Work Phone: [facility] 03-14-2025 11:04-0400 Body mass index (BMI) [Ratio] 28.84 kg/m2 Kendra Nataprawira DO Work Phone: [facility] 03-14-2025 11:04-0400 Body weight 76.2 kg Kendra Nataprawira DO Work Phone: [facility] 03-14-2025 11:04-0400 Diastolic blood pressure 82 mm[Hg] Kendra Nataprawira DO Work Phone: [facility] [employer] 03-14-2025 11:04-0400 Systolic blood pressure 144 mm[Hg] Kendra Monroyra DO Work Phone: [facility] [employer] 12-23-2021 14:30-0500 Body height 162.56 cm Lorraine [employer]xa Other [employer] Other 12-23-2021 14:30-0500 Body mass index (BMI) [Ratio] 29.86 kg/m2 Lorraine Olexa Other [employer] Other 12-23-2021 14:30-0500 Body weight 78.93 kg [employer] Other [employer] Other Encounters Encounter Date Encounter Type Care Provider Facility Start: 07-24-2025 End: 07-24-2025 Clinical Support Kendra Jarquincristobal DO Work Phone: [facility] Keaton HERNANDEZ Comment on above: Rhytides (Primary Dx ) Start: 06-20-2025 End: 06-20-2025 Office outpatient visit 10 minutes [facility] Comment on above: Encounter to discuss test results; Adnexal mass; Pelvic pain in female Start: 06-20-2025 End: 06-20-2025 ambulatory KENDRA MONROYRA Not Available Start: 05-15-2025 End: 05-15-2025 ambulatory GREG DUFF Facility:[facility] Start: 04-19-2025 End: 04-19-2025 ambulatory KENDRA MONROYRA Not Available Start: 03-14-2025 End: 03-14-2025 ambulatory KENDRA MONROYRA Not Available Start: 03-14-2025 End: 03-14-2025 Office outpatient new 30 minutes Kendra Monroyra DO Work Phone: [facility] Comment on above: Pelvic pain in femal e (Primary Dx); Abnormal uterine bleeding; Post-menopause bleeding; Hot flushes, perimenopausal; Abdominal bloating; History of endometrial ablation Start: 02-16-2025 End: 02-16-2025 ambulatory CLINICAL ASST Jazmyn L [place] Facility: [facility] Brannon roshan Start: 12-06-2024 End: 12-06-2024 Lab Drop off Jazmyn L John [facility] Start: 12-06-2024 End: 12-06-2024 ambulatory Jazmyn L [place] Facility:[facility] Start: 11-07-2024 End: 11-07-2024 ambulatory Jazmyn L [place] Facility:[facility] Isabela roshan Start: 10-18-2024 End: 10-18-2024 Lab Drop off Jazmyn L John [facility] Start: 10-18-2024 End: 10-18-2024 ambulatory Jazmyn L [place] Facility:[facility] Start: 08-08-2024 End: 08-08-2024 ambulatory Jazmyn L [place] Facility: [facility] Isabela roshan Start: 2024 End: 2024 ambulatory Jazmyn L [place] Facility: [facility] Isabela roshan Start: 03-30-2024 End: 03-30-2024 ambulatory Jazmyn L [place] Facility: [facility] Isabela roshan Start: 02-02-2024 End: 02-02-2024 ambulatory Jazmyn L [place] Facility: [facility] Isabela roshan Start: 01-05-2024 End: 01-05-2024 ambulatory Jazmyn L [place] Facility: [facility] Isabela roshan Start: 01-03-2024 Office outpatient visit 25 minutes [facility] Start: 01-03-2024 End: 01-03-2024 ambulatory Rocael Faulkner Facility:[facility] Start: 01-03-2024 End: 01-03-2024 ambulatory NON STAFF [facility] Work Phone: Start: 01-03-2024 End: 01-03-2024 Patient encounter procedure [facility] Start: 12-08-2023 End: 12-08-2023 ambulatory Jazmyn L [place] Facility: [facility] Start: 08-18-2023 End: 08-18-2023 Lab Drop off Jazmyn L John [facility] Start: 05-18-2023 End: 05-18-2023 Lab Drop off Jazmyn L John [facility] Start: 05-18-2023 End: 05-18-2023 Lab Drop off Jazmyn L John [facility] Start: 04-02-2023 End: 04-02-2023 Lab Drop off Jazmyn L John [facility] Start: 02-22-2023 End: 02-22-2023 ambulatory Zulma Flores Facility:[facility] Start: 02-09-2022 End: 07-06-[address] SHE SARKAR Facility:[facility] Start: 02-05-2022 End: 02-06-[address] HSE SARKAR Facility:[facility] Start: 12-23-2021 End: 12-24-2021 ambulatory L[facility]RAINE ESP[facility] [employer] Other Start: 12-23-2021 Office outpatient ne w 30 minutes Lorraine Esparza [facility] Start: 08-29-2021 End: 08-29-[address] NIRALI SEN Facility:[facility] Start: 08-19-2021 End: 08-20-[address] NIRALI SEN Facility:[facility] Start: 08-13-2021 End: 08-14-[address] NIRALI SEN Facility:[facility] Start: 08-01-2021 End: 08-02-[address] NIRALI SEN Facility:[facility] Start: 07-22-2021 End: 07-23-[address] NIRALI SEN Facility:[facility] Procedures Date Procedure Procedure Detail Performing Clinician Start: 01-03-2024 Plain X-ray of right shoulder Colonoscopy Jazmyn Lopez Comment on above: 2019 normal Destructive procedure Jazmyn hatfield Comment on above: for menorrhagia 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 [address] [facility] Start: 04-19-2025 End: 04-19-2025 Patient encounter procedure 04/19/2025 9:00 AM EDT Office Visit [facility] [address] [address] Kendra Huang DO [address] [address] [facility] Start: 04-19-2025 End: 04-19-2025 Professional / ancillary services management 04/19/2025 8:00 AM EDT Ancillary Procedure [facility] [address] [address] [facility] Start: 2008 Screening for malign ant neoplasm of breast Mammogram [facility] Start: 1998 Screening for malign ant neoplasm of cervix [facility] Start: 1989 Screening for malign ant neoplasm of cervix Pap Smear [facility] Start: 1968 Screening for malign ant neoplasm of colon [facility] Follicle stimulating hormone Follicle stimulating hormone Lab Routine Pelvic pain in female Abnormal uterine bleeding Post-menopause bleeding History of endometrial ablation Abdominal bloating Ordered: 03/14/2025 [facility] Work Phone: Comment on above: Ordered: 03/14/2025 Immunizations Immunization Date Immunization Notes Care Provider [facility] 09-14-2024 influenza virus vaccine, unspecified formulation Jazmyn John [facility] 07-27-2024 zoster vaccine recombinant Jazmyn John [facility] 02-23-2024 zoster vaccine recombinant Jazmyn John [facility] 02-05-2024 tetanus toxoid, redu rekha diphtheria toxoid, and acellular pertussis vaccine, adsorbed Jazmyn John [facility] 08-28-2023 influenza virus vaccine, unspecified formulation Jazmyn John [facility] 09-26-2022 influenza virus vaccine, unspecified formulation Jazmyn John [facility] 09-26-2022 SARS-CoV-2 (COVID-19 ) [id number] Jazmyn John [facility] 09-15-2021 influenza virus vaccine, unspecified formulation Jazmyn John [facility] 09-15-2021 SARS-CoV-2 (COVID-19 ) mRNA BNT-162b2 vax Jazmyn John [facility] Comment on above: Result Comment: 2022: [id number] 03-04-2021 SARS-CoV-2 (COVID-19 ) mRNA BNT-162b2 vax Jazmyn John [facility] 02-10-2021 SARS-CoV-2 (COVID-19 ) mRNA BNT-162b2 vax Jazmyn John [facility] 09-06-2020 influenza virus vaccine, unspecified formulation Jazmyn John [facility] 09-20-2019 influenza virus vaccine, unspecified formulation Jazmyn John [facility] 08-13-2018 influenza virus vaccine, unspecified formulation Jazmyn John [facility] 10-13-2017 influenza virus vaccine, unspecified formulation Jazmyn John [facility] 09-20-2017 influenza virus vaccine, unspecified formulation Jazmyn John [facility] 09-08-2016 influenza virus vaccine, unspecified formulation Jazmyn John [facility] 09-08-2016 tetanus toxoid, redu rekha diphtheria toxoid, and acellular pertussis vaccine, adsorbed Jazmyn John [facility] 10-08-2015 influenza virus vaccine, unspecified formulation Jazmyn John [facility] Payers Date Payer Category Payer [facility] [id number] 1968 Unknown [id number] 2.16.840.1.549226.3.579 .2.593 1968 Unknown [id number] 2.16.840.1.285153.3.579 .2.593 1968 Unknown [id number] 2.16.840.1.955655.3.579 .2.593 1968 Unknown [id number] 2.16.840.1.849084.3.579 .2.593 1968 Unknown [id number] 2.16.840.1.114459.3.579 .2.593 1968 Unknown [id number] 2.16.840.1.220870.3.579 .2.593 1968 Unknown [id number] 2.16.840.1.733608.3.579 .2.593 1968 Unknown [id number] 2.16.840.1.169497.3.579 .2.593 1968 Unknown [id number] 2.16.840.1.163883.3.579 .2.727 1968 Unknown [id number] 2.16.840.1.997301.3.579 .2.727 1968 Unknown [id number] 2.16.840.1.424041.3.579 .2.727 1968 Unknown [id number] 2.16.840.1.245556.3.579 .2.727 1968 Unknown [id number] 2.16.840.1.321966.3.579 .2.727 1968 Unknown [id number] 2.16.840.1.020307.3.579 .2.727 1968 Unknown [id number] 2.16.840.1.650867.3.579 .2.7 1968 Unknown [id number] 2.16.840.1.850912.3.579 .2. 1968 Unknown [id number] 2.16.840.1.832702.3.579 .2. 1968 Unknown [id number] 2.16.840.1.111481.3.579 .2. 1968 Unknown [id number] 2.16.840.1.296349.3.579 .2. 1968 Unknown [id number] 2.16.840.1.935966.3.579 .2. 1968 Unknown [id number] 2.16.840.1.205020.3.579 .2. 1968 Unknown [id number] 2.16.840.1.062476.3.579 .2.1258 1968 Unknown [id number] 2.16.840.1.484597.3.579 .2.1258 1968 Unknown [id number] 2.16.840.1.668322.3.579 .2.1258 1968 Unknown [id number] 2.16.840.1.735735.3.579 .2.1259 1968 Unknown [id number] 2.16.840.1.639327.3.579 .2.1258 1968 Unknown [id number] 2.16.840.1.291028.3.579 .2.1259 1961 Blue Cross Blue [facility] [id number] 2.16840.1.174683.19 1961 Self-pay Private Health Insurance [facility] [id number] Unknown [id number] 2.16.840.1.825951.3.579 .2.531 Unknown [id number] 2.16.840.1.638456.3.579 .2.531 Social History Date Type Detail Facility Unknown if ever smoked [facility] Other Start: 03-14-2025 End: 06-20-2025 Sex Assigned At [facility] Tobacco smoking status No Smokin g Status Entered [facility] Start: 05-18-2023 End: 03-14-2025 Tobacco smoking status Never smoked tobacco (finding) [facility] Tobacco smoking status Never [facility] Start: 1970 Sex Assigned At Female F [facility] Start: 03-14-2025 Tobacco use and exposure Smokeless tobacco non-user [facility] Start: 03-14-2025 End: 06-20-2025 Alcoholic beverage intake Ex-drinker (finding) [facility] Start: 03-14-2025 End: 06-20-2025 History of Social function [facility] Start: 1970 Sex assigned at Not on file [facility] Clinical Notes 12-23-2021 to 07-24-2025 Kendra Huang, DO - 07/24/2025 11:30 AM Home Huang, DO - 06/20/2025 10:00 AM Home Huang, DO - 03/14/2025 11:00 AM EDT Note Date & Type Note Facility 07-24-2025 History of Present illness Narrative Images from the original note were not included. Patient ID: Susan Francis is a 55 y.o. female. Procedures Botox Injection Susan came today for Botox injection. I reviewed with her the risks and benefits including ptosis, infection, and bleeding. She has no contraindications. She is on no antibiotics and has no neuromuscular disorders. is not an issue. She tolerated the procedure well. The patient will return to see me again in three to four months, earlier if there are any problems. Susan understands the side effects and risks, as well as the necessity for continued treatment to maintain improvement. Additional therapy may be necessary. Call if there are any problems. See diagram for injection sites and dosages. 20 units were used at a concentration of 4 units per 0.1 mL. Obicularis guera 16 Units (8 units on upper lip, 8 units on lower lip) Depressor anguli guera 4 Units (2 units each side) LOT [id number] EXP documented in this encounter [facility] 06-20-2025 History of Present illness Narrative Images from the original note were not included. Subjective Susan Francis is a 54 y.o. female HPI Chief Complaint Patient presents with Follow-up Patient here today for f/up after repeat pelvic ultrasound to reassess pelvic cyst. Denies pelvic pain, urinary or bowel habit changes. Pelvic ultrasound: Measurements: Uterus: 7.3 x 3.4 x 3.5 cm Volume: 45.7 cm Endometrial thickness: 1.8 mm Right ovary: 1.2 x 1.5 x 1.0 cm Volume: 0.8 cm Left ovary: not visualized Findings: Uterus: The uterus is normal in size and contour. Position: Anterverted Malformations: none Myometrium: The myometrium is rather inhomogenous in echotexture, without overt fibroid. Fibroid(s): none Endometrium: The patient has a history of an endometrial ablation. Polyp(s): none Cervix: The cervix contains several small thin walled sonolucent cysts. Right ovary: Visualized Morphology: normal appearing Cyst(s): none Doppler: power doppler shows ovarian blood profusion Right adnexa: no overt adnexal mass Left ovary: Not visualized Morphology: n/a Left adnexa: no overt adnexal mass Cul de Sac: no free fluid Past Medical History: Diagnosis Date Hypothyroidism Past Surgical History: Procedure Laterality Date ENDOMETRIAL ABLATION 10 years ago VAGINAL DELIVERY x3 No family history on file. Social History Tobacco Use Smoking status: Never Smokeless tobacco: Never Substance Use Topics Alcohol use: Not Currently Drug use: Never OB History Para Term AB Living 3 3 SAB IAB Ectopic Multiple Live Births # Outcome Date GA Lbr Humberto/2nd Weight Sex Type Anes PTL Lv 3 Para 2 Para 1 Para No Known Allergies Current Outpatient Medications on File Prior to Visit Medication Sig Dispense Refill cetirizine (ZyrTEC) 10 MG tablet Take 10 mg by mouth levothyroxine (Synthroid, Levoxyl) 50 MCG tablet See Instructions, TAKE 1 TABLET BY MOUTH EVERY DAY, # 90 tab(s), Refills(s) 0, Pharmacy: [id number], 165, cm, 12/06/24 14:44:00 EST, Height/Length Dosing, 73.1, kg, 12/06/24 14:44:00 EST, Weight Dosing No current facility-administered medications on file prior to visit. Review of Systems All other systems reviewed and are negative. Objective BP 126/78 Wt 169 lb LMP (LMP Unknown) BMI 29.01 kg/m Physical Exam Constitutional: Appearance: Normal appearance. Neurological: Mental Status: She is alert. Skin: General: Skin is warm and dry. Psychiatric: Mood and Affect: Mood normal. Assessment/Plan 1. Encounter to discuss test results Discussed findings, no adnexal mass noted bilaterally. No further work-up indicated 2. Adnexal mass Not seen on ultrasound today 3. Pelvic pain in female Resolved documented in this encounter [facility] 03-14-2025 History of Present illness Narrative Images from the original note were not included. Subjective Susan Francis is a 54 y.o. female HPI Chief Complaint Patient presents with sick visit New patient here today with reports of lower abdominal pain/bloating. Patient states that she has seen PCP for abdominal pain which she ordered a gallbladder ultrasound that was done on 02/28, has gallstones. Last pap 06/2024 NILM. Hx of endometrial ablation - no cycles in 2022, then had several days of spotting 08/2024. Admits to dull achy pain in lower pelvic area, waxes/wanes, L>R. Denies any urinary or bowel habit changes. Denies any vaginal discharge/itching Past Medical History: Diagnosis Date Hypothyroidism (CMS/HCC) Past Surgical History: Procedure Laterality Date ENDOMETRIAL ABLATION 10 years ago VAGINAL DELIVERY x3 No family history on file. Social History Tobacco Use Smoking status: Never Smokeless tobacco: Never Substance Use Topics Alcohol use: Not Currently Drug use: Never OB History Para Term AB Living 3 3 SAB IAB Ectopic Multiple Live Births # Outcome Date GA Lbr Humberto/2nd Weight Sex Type Anes PTL Lv 3 Para 2 Para 1 Para No Known Allergies Current Outpatient Medications on File Prior to Visit Medication Sig Dispense Refill cetirizine (ZyrTEC) 10 MG tablet Take 10 mg by mouth levothyroxine (Synthroid, Levoxyl) 50 MCG tablet See Instructions, TAKE 1 TABLET BY MOUTH EVERY DAY, # 90 tab(s), Refills(s) 0, Pharmacy: [id number], 165, cm, 12/06/24 14:44:00 EST, Height/Length Dosing, 73.1, kg, 12/06/24 14:44:00 EST, Weight Dosing No current facility-administered medications on file prior to visit. Review of Systems Constitutional: Negative for chills and fever. Respiratory: Negative for shortness of breath. Cardiovascular: Negative for chest pain. Gastrointestinal: Negative for nausea and vomiting. Genitourinary: Negative for dysuria, pelvic pain and vaginal discharge. Neurological: Negative for dizziness and headaches. Objective BP 144/82 Wt 168 lb LMP (LMP Unknown) BMI 28.84 kg/m Physical Exam Constitutional: Appearance: Normal appearance. She is well-developed. Genitourinary: Urethral meatus normal. No lesions in the vagina. Right Labia: No lesions. Left Labia: No lesions. No vaginal discharge. Right Adnexa: not tender and no mass present. Left Adnexa: not tender and no mass present. No cervical lesion. Uterus is tender. Uterus is retroverted. Bladder is not tender. Breasts: Right: No mass, nipple discharge, skin change or tenderness. Left: No mass, nipple discharge, skin change or tenderness. HENT: Head: Normocephalic and atraumatic. Mouth/Throat: Mouth: Mucous membranes are moist. Cardiovascular: Rate and Rhythm: Normal rate and regular rhythm. Pulmonary: Effort: Pulmonary effort is normal. Breath sounds: Normal breath sounds. Abdominal: General: Bowel sounds are normal. Palpations: Abdomen is soft. Musculoskeletal: General: No tenderness. Cervical back: Neck supple. Right lower leg: No edema. Left lower leg: No edema. Neurological: General: No focal deficit present. Mental Status: She is alert and oriented to person, place, and time. Skin: General: Skin is warm and dry. Psychiatric: Mood and Affect: Mood and affect normal. Vitals and nursing note reviewed. Assessment/Plan 1. Pelvic pain in female (Primary) Pelvic ultrasound to be scheduled and will notify patient of results. - Follicle stimulating hormone 2. Abnormal uterine bleeding Will assess FSH level, order given to patient. Will notify patient of result - Follicle stimulating hormone 3. Post-menopause bleeding - Follicle stimulating hormone 4. Hot flushes, perimenopausal 5. Abdominal bloating - Follicle stimulating hormone 6. History of endometrial ablation Amenorrheic for 10 years, then patient reports vaginal spotting - Follicle stimulating hormone documented in this encounter [facility] 12-06-2024 Evaluation + Plan note [facility] 12/06/24Comprehensive Metabolic Panel 12/06/24yroid Stimulating Hormone 12/06/24Amylase Level 12/06/24Lipase Level 12/06/24 [facility] 01-03-2024 Evaluation note Encounter Date Diagnosis Assessment Notes Dec, Rotator cuff syndrome of right shoulder (ICD-10 - M75.101) Discussed with patient and company on the patient's symptoms, exam, and imaging. Likely etiologies of the patient's symptoms were discussed. Patient is likely suffering from a right rotator cuff syndrome and biceps tendinitis. We discussed various treatment options. At this point we will pursue conservative management in the form of an injection and at home exercises. We discussed an injection at this time and patient wishes to proceed. Under sterile condition, 1 cc of Kenalog/4 cc bupivacaine were injected into the subacromial space. Patient tolerated the procedure well. We also discussed doing rotator cuff strenghtening and scapular stabilizing exercises at home. We also discussed taking oral anti-inflammator ies. She will follow up on an as needed basis for symptom recurrance. Dec, Tendinitis of upper biceps tendon of right shoulder (ICD-10 - M75.21) Dec, Pain in right shoulder (ICD-10 - M25.511) [facility] [employer] Other 06-20-2023 Evaluation + Plan note Diagnostic Tests Pending * PAP [id number] w/ HPV and Genotype rflx 05/18/23 [facility]05-05-2023 Evaluation + Plan note Diagnostic Tests Pending * T3 Free 04/02/23 [facility]01-25-2022 NotePROCEDURE: XR SHOULDER RT 2V or > HISTORY: Pain of right shoulder joint ; chronic COMPARISON: None. FINDINGS: BONES:No fracture, acute abnormality, or significant arthropathy. SOFT TISSUES:No visible soft tissue swelling. EFFUSION:None visible. OTHER: Negative. IMPRESSION: 1. No acute bone abnormality or significant degenerative joint disease. Electronically authenticated by: CARROLL BABCOCK Date: 2021-12-23 14:48[facility]01-25-2022 Evaluation note* Encounter Date Diagnosis Assessment Notes Treatment Notes Treatment Clinical Notes Nov, Acute pain of right shoulder (ICD-10 - M25.511) Nov, Tear of right rotator cuff, unspecified tear extent, unspecified whether traumatic (ICD-10 - M75.101) This appears to be pain secondary to rotator cuff tear. We discussed and demonstrated gentle motion exercise and rotator cuff strengthening exercise. Discussed the use of non-steroidal anti-inflammatory medication. At this point the patient will try to live with the condition, understanding a rotator cuff tear can worsen and enlarge with time. a marcaine / kenalog cortisone injection was performed into the subacromial space under sterile technique. Patient tolerated the injection well with no adverse reaction. Discussed with patient to call if she would like to start physical therapy [facility] Other Evaluation + Plan note Future Appointments Appointment Date:11/07/2024 08:40:00 AM Scheduled Provider:Jazmyn De La Torre Location:[facility] Appointment Type: Open Diagnostic Tests Pending * Urine Culture 10/18/24 [facility] Evaluation noteNo assessment information available [facility] Work Phone: Evaluation note* Diagnosis Pelvic pain in female- Primary Unspecified symptom associated with female genital organs Abnormal uterine bleeding Unspecified disorder of menstruation and other abnormal bleeding from female genital tract Post-menopause bleeding Postmenopausal bleeding Hot flushes, perimenopausal Abdominal bloating Flatulence, eructation, and gas pain History of endometrial ablation [facility] Diagnosis Encounter to discuss test results Other specified counseling Adnexal mass Other specified symptom associated with female genital organs Pelvic pain in female Unspecified symptom associated with female genital organs [facility] Diagnosis Rhytides- Primary [facility] Narrative - Reported* Type Description Date Medical History asthma Medical History thyroid Surgical History jaw surgery Surgical History ablasion [facility] Other Hospital course Narrative No data available for this section [facility] No data available for this section [facility] No data available for this section [facility] Summary Purpose Family History No Family History Records FoundNo Family History Records Found No data available for this section No Family History Records FoundNo Family History Records Found No data available for this section No Family History Records FoundNo Family History Records FoundNo Family History Records FoundNo Family History Records FoundNo Family History Records FoundNo Family History Records FoundNo Family History Records FoundNo Family History Records Found Advance Directives No Advanced Directives Records Found Advance Directive Response Recorded Date/ Time Advance Directives No July 1:56pm Additional Source Comments REASON FOR VISIT (unrecogniz ed section and content) Reason Comments sick visit New patient here tod ay with reports of lower abdominal pain/bloating. Patient states that she has seen PCP for abdominal pain which she ordered a gallbladder ultrasound that was done on 02/28, has gallstones. Last pap 06/2024 NILM. Hx of endometrial ablation - no cycles in 2022, then had several days of spotting 08/2024. Admits to dull achy pain in lower pelvic area, waxes/wanes, L>R. Denies any urinary or bowel habit changes. Denies any vaginal discharge/itching. Admits to hot flushes Reason Comments Follow-up Patient here today f or f/up after repeat pelvic ultrasound to reassess pelvic cyst. Denies pelvic pain, urinary or bowel habit changes. Reason Comments Botulinum Toxin Injection Patient here f or botox. Risks and benefits discussed. Concerns addressed. Patient understands this is a cosmetic procedure and therefore is not covered by insurance. Consent reviewed and signed. INFORMATION SOURCE (unrecogn ized section and content) DATE CREATED AUTHOR 07/05/2022 [facility] DATE CREATED AUTHOR AUTHOR'S ORGANIZ ATION 01/11/2024 [facility] DATE CREATED AUTHOR AUTHOR'S ORGANIZ ATION 10/24/2024 [facility] DATE CREATED AUTHOR AUTHOR'S ORGANIZ ATION 11/11/2024 [facility] DATE CREATED AUTHOR AUTHOR'S ORGANIZ ATION 12/12/2024 [facility] DATE CREATED AUTHOR AUTHOR'S ORGANIZ ATION 12/13/2024 [facility] DATE CREATED AUTHOR AUTHOR'S ORGANIZ ATION 05/17/2025 [facility] DATE CREATED AUTHOR AUTHOR'S ORGANIZ ATION 07/26/2025 [facility] [employer] EPIC Patient Care team informatio n (unrecognized section and content) Team Status: Active Member Role Status Dates NON STAFF Primary Care Provider Active Team Status: Inactive Member Role Status Dates NON STAFF Primary Care Provider Active Start: January 03, 2024 End: January 03, 2024 Rocael Faulkner DO Attending Provider Active St art: January 03, 2024 End: January 03, 2024 [employer] Relationship Specialty Start Date End Date Luis Currie MD [address] [place] [address] PCP - General Family Medicine 03/14/25 [employer] Relationship Specialty Start Date End Date Luis Currie MD [address] [place] [address] PCP - General Family Medicine 03/14/25 [employer] Relationship Specialty Start Date End Date Luis Currie MD [address] [place] [address] PCP - General Family Medicine 03/14/25 Goals (unrecognized section and content) Goals may be documented in a n alternate section FOR RECORDS PERTAINING TO PATIENTS WHO ARE OR HAVE BEEN ENROLLED IN A CHEMICAL DEPENDENCY/SUBSTANCEABUSE PROGRAM, SOME INFORMATION MAY BE OMITTED. This clinical summary was aggregated from multiple sources. Caution should be exercised in using it in the provision of clinical care. This summary normalizes information from multiple sources, and as a consequence, information in this document may materially change the coding, format and clinical context of patient data. In addition, data may be omitted in some cases. CLINICAL DECISIONS SHOULD BE BASED ON THE PRIMARY CLINICAL RECORDS. [employer] [facility]. provides no warranty or guarantee of the accuracy or completeness of information in this document.
== END 2025-08-23 08:58 | disposition home or self-care (01) ==
LOC: MAMMO 08:57
PROVIDERS: PCP Nurse Practitioner; Visit Provider Obstetrics & Gynecology
DX: Z12.31 Encounter for screening mammogram for malignant neoplasm of breast (principal); Z80.1 Family history of malignant neoplasm of trachea, bronchus and lung
CPT/HCPCS: 77063; 77067